=== PATIENT | female | born 1970 | race Caucasian/White ===

== ENCOUNTER → 2016-03-20 | Outpatient (CLI) | payer BC, OTHER ==
[~2016-03-20] MED LIST: AMOX875T PO; CALC500C3 PO; CHOL1000 PO; CYM20 PO; DLD25PCA IV; DRGTP100 TD; DRGTP25 TD; DXY100 PO; ENOX1INJ11 SQ; ENOX80IN SQ; FENT50DI19 TD; FNTTP75 EXT; KFL500 PO; LEVO137T3 PO; LEVO75TA PO; LVNIS80 SQ; MGNO400 PO; MRN/25 PO; MRN25 PO; MULT-506 PO; ONDA8TAB6 PO; OXYC-57 PO; OXYC1TAB3 PO; PHYT100T PO; POTA75TA PO; PROC1TAB5 PO; SENN-61 PO; SENN8.6T25 PO; SYN150 PO; WARF2TAB8 PO; oxycodone hcl PO; potassium PO; synthroid PO
[2016-03-20 14:34] LABS: ESTIMATED AVERAGE GLUCOSE 120 mg/dl; HA1C FLAG Normal (Normal)
[2016-03-20 14:50] LABS: ALKALINE PHOSPHATASE 92 U/L (45-117); ALT/SGPT 11 U/L (12-78); AST/SGOT 17 U/L (15-37); CHOLESTEROL 312 mg/dl (0-200); CHOLESTEROL/HDL RATIO 3.2; HDL CHOLESTEROL 99 mg/dl; LDL CHOLESTEROL CALCULATED 190 mg/dl; TRIGLYCERIDES 117 mg/dl (0-150); VERY LOW DENSITY LIPOPROT CALC 23 mg/dl
== END | disposition home or self-care (01) ==
LOC: C.LABSPEC 10:47
PROVIDERS: ATTEND Family Medicine
DX: I10 Essential (primary) hypertension (principal); E78.5 Hyperlipidemia, unspecified; E03.9 Hypothyroidism, unspecified; E09.39 Drug or chemical induced diabetes mellitus with other diabetic ophthalmic complication

== ENCOUNTER → 2016-04-04 | Outpatient (CLI) | payer BC ==
[~2016-04-04] MED LIST changes: -oxycodone hcl PO
--- NOTE | 2016-04-04 11:33 | DIAGNOSTIC IMAGING REPORT ---
RIGHT LOWER EXTREMITY VENOUS DOPPLER HISTORY: Right leg pain and swelling. COMPARISON STUDY: None. FINDINGS: There is occlusive thrombus seen within the right common femoral vein, saphenous vein, deep femoral vein, proximal superficial femoral vein, popliteal vein, and the visualized calf vessels. Of note the distal superficial femoral vein was not well visualized due to the patient's right lower extremity edema. IMPRESSION: Extensive DVT within the right lower extremity. Electronically signed by: Carlos Cruz M.D. 04/04/2016 11:32 AM Dictated Date/Time: 04/04/2016 11:30 AM
== END | disposition home or self-care (01) ==
LOC: C.ULTR 11:00
PROVIDERS: ATTEND Internal Medicine Hematology & Oncology
DX: C53.0 Malignant neoplasm of endocervix (principal); I82.4Z1 Acute embolism and thrombosis of unspecified deep veins of right distal lower extremity

== ENCOUNTER → 2016-04-04 | Outpatient (CLI) | payer BC | END | disposition home or self-care (01) | LOC: C.LABSPEC 16:40 | PROVIDERS: ATTEND Family Medicine | DX: D63.8 Anemia in other chronic diseases classified elsewhere (principal); D51.8 Other vitamin B12 deficiency anemias; C53.0 Malignant neoplasm of endocervix; E03.8 Other specified hypothyroidism ==

== ENCOUNTER → 2016-04-17 | Outpatient (CLI) | payer BC ==
[2016-04-17 11:51] LABS: BASO % 0.4 %; BASO ABS # 0.02 K/uL (0-0.2); COMPLETE YES; EOS % 1.5 %; HEMATOCRIT 27.7 % (37-47); IG% 3.4 %; LYMPH % 8.8 %; LYMPH ABS # 0.41 K/uL (1.2-3.4); MEAN CELL VOLUME 88.2 fL (80-100); MEAN CORPUSCULAR HEMOGLOBIN 29.3 pg (25-34); MEAN CORPUSCULAR HGB CONC 33.2 g/dl (32-36); MEAN PLATELET VOLUME 9.5 fL (7.4-10.4); MONO % 12.2 %; NEUT % 73.7 %; PLATELET COUNT 234 K/uL (130-400); RED BLOOD COUNT 3.14 M/uL (4.2-5.4); WHITE BLOOD COUNT 4.68 K/uL (4.8-10.8)
[2016-04-17 12:25] LABS: ALT/SGPT 9 U/L (12-78); BLOOD UREA NITROGEN 7 mg/dl (7-18); BUN/CREATININE RATIO 8.8 (10-20); CALCIUM 7.1 mg/dl (8.5-10.1); CARBON DIOXIDE 33 mmol/L (21-32); CHLORIDE 95 mmol/L (98-107); CREATININE 0.81 mg/dl (0.60-1.20); GLUCOSE 76 mg/dl (70-99); POTASSIUM 3.1 mmol/L (3.5-5.1); SODIUM 138 mmol/L (136-145)
[2016-04-17 12:36] LABS: CHOLESTEROL 203 mg/dl (0-200); CHOLESTEROL/HDL RATIO 4.1; HDL CHOLESTEROL 49 mg/dl; LDL CHOLESTEROL CALCULATED 122 mg/dl; TRIGLYCERIDES 159 mg/dl (0-150); VERY LOW DENSITY LIPOPROT CALC 32 mg/dl
== END | disposition home or self-care (01) ==
LOC: C.LAB 10:11
PROVIDERS: ATTEND Family Medicine
DX: D63.8 Anemia in other chronic diseases classified elsewhere (principal); M48.50XA Collapsed vertebra, not elsewhere classified, site unspecified, initial encounter for fracture; E03.8 Other specified hypothyroidism; C53.0 Malignant neoplasm of endocervix

== ENCOUNTER → 2016-04-21 | Outpatient (CLI) | payer BC ==
[~2016-04-21] MED LIST changes: +OPTIRAY 320 IV PRN
--- NOTE | 2016-04-21 12:37 | DIAGNOSTIC IMAGING REPORT ---
ABDOMEN AND PELVIS CT WITH IV AND ORAL CONTRAST CT DOSE: 293.65 mGy.cm HISTORY: Cervical tumor. TECHNIQUE: Multiaxial CT images of the abdomen and pelvis were performed following the use of intravenous and oral contrast. COMPARISON STUDY: PET CT 02/16/2016. FINDINGS: Stable 4 mm nodule within the right middle lobe. No new pulmonary nodules identified. The spleen, adrenal glands, and pancreas are unremarkable. Prior cholecystectomy. Mild fullness within the right renal collecting system has improved. Stable mild left hydronephrosis with the obstruction at the level of the mid left ureter due to the pelvic sidewall mass. Multiple hepatic lesions consistent with metastatic disease. Dominant lesion within the right hepatic lobe measures 1.9 cm. Direct comparison to the prior PET/CT is difficult due to the noncontrast study. The IVC is thrombosed inferior to the level of the renal veins. The right iliac and right femoral veins are also thrombosed. The left common iliac is also thrombosed. Mild bladder wall thickening. Moderate to severe body wall edema. Multiple soft tissue nodule within the left abdominal subcutaneous fat which measure up to 1.5 cm. This could be due to prior medication injection. The periaortic lymphadenopathy has improved. Dominant lymph node measures 3.2 x 2.5 cm, previously measuring 4.8 x 4.6 cm. This partially encases the abdominal aorta. Large bilateral iliac/pelvic sidewall the necrotic masses have also decreased in size. The dominant left mass measures 5.4 x 5.2 cm. This previously measured 7.6 x 7.4 cm. These masses encase the common iliac arteries. Cystic/necrotic pelvic masses have also decreased in size with the dominant lesion measuring 6.5 x 3.7 cm, previously measuring 8.8 x 4.9 cm. Redemonstration of the destructive L3 vertebral body mass which likely demonstrates epidural extension which measures up to 4 mm in thickness. This results in moderate central canal narrowing at this level. This mass results in a severe compression deformity of L3 which has progressed in the interval. IMPRESSION: 1. Decrease in size in the pelvic masses and periaortic lymphadenopathy. 2. Mild left hydronephrosis persists. Improvement in right renal collecting system fullness. 3. Multiple metastatic lesions seen throughout the liver. Direct comparison to the noncontrast PET/CT is difficult. However, these may have increased in number. 4. Severe compression deformity at L3 which has progressed. There appears to be epidural extension of tumor at this level and retropulsion of the bony fragments measuring up to 4 mm area this results in moderate central canal narrowing at this level. 4. Diffuse body wall edema. 5. The infrarenal IVC, bilateral common iliac veins, right external iliac vein and visualized right femoral veins are thrombosed. 6. Stable 4 mm nodule within the right middle lobe. Electronically signed by: Carlos Cruz M.D. 04/21/2016 12:36 PM Dictated Date/Time: 04/21/2016 12:16 PM
== END | disposition home or self-care (01) ==
LOC: C.CTS 10:26
PROVIDERS: ATTEND Internal Medicine Hematology & Oncology
DX: C53.0 Malignant neoplasm of endocervix (principal)

== ENCOUNTER 2016-05-11 19:31 | Inpatient (IN) | payer BC ==
[~2016-05-11] VITALS: Ht 154.9 cm; Wt 59.4 kg
[~2016-05-11 19:31] MED LIST changes: -AMOX875T PO; -CALC500C3 PO; -CHOL1000 PO; -CYM20 PO; -DLD25PCA IV; -DRGTP100 TD; -DRGTP25 TD; -DXY100 PO; -ENOX80IN SQ; -FNTTP75 EXT; -KFL500 PO; -LEVO137T3 PO; -LVNIS80 SQ; -MGNO400 PO; -MRN/25 PO; -MRN25 PO; -MULT-506 PO; -OXYC-57 PO; -PHYT100T PO; -POTA75TA PO; -SENN8.6T25 PO; -SYN150 PO; -potassium PO; -synthroid PO
[2016-05-11] MEDS ORDERED: SODIUM CHLORIDE 0.9% 1000ML 1,000 ML IV STA (20:17)
--- NOTE | 2016-05-11 20:34 | EMERGENCY ROOM VISIT NOTE ---
History Report prepared by Leona: Shin Valentine Under the Supervision of: Dr. Cam Madison M.D. First contact with patient: 20:17 Chief Complaint: ABNORMAL LABS Stated Complaint: LOW CBC History of Present Illness The patient is a 45 year old female with a history of metastatic cervical cancer who presents to the Emergency Room with complaints of abnormal labs that were found prior to arrival today. Her white blood count was 0.33 and her hemoglobin was 6.2. Her last chemotherapy was yesterday, and her last radiation was in March. She is currently on Warfarin. Other than a bit of pain from her port, she denies any fevers, chills, shortness of breath, headaches, or abdominal pain. She did take Oxycontin 3 hours ago. Source of History: patient Onset: Prior to arrival today Position: other (global - abnormal labs) Symptom Intensity: WBC of 0.33, hemoglobin of 6.2 Associated Symptoms: No SOB, No abdominal pain, No chills, No fevers, No headache Note: Associated symptoms: A bit of pain from her port. Review of Systems See HPI for pertinent positives & negatives. A total of 10 systems reviewed and were otherwise negative. Past Medical & Surgical Medical Problems: (1) Deep vein blood clot of right lower extremity (2) Diabetes Family History Cancer Diabetes mellitus Heart disease Hypertension Seizures Social History Smoking Status: Never Smoker Marital Status: single Occupation Status: disabled Current/Historical Medications Scheduled Enoxaparin Sodium (Lovenox), 70 MG SQ DAILY Levothyroxine Sodium (Levothyroxine Sodium), 1 TAB PO DAILY Senna (Senokot), 1 TAB PO DAILY Warfarin Sod (Jantoven), 2 MG PO QPM Scheduled PRN Fentanyl (Duragesic), 100 MCG TD CQ72HR PRN for Pain Ondansetron Hcl (Zofran), 8 MG PO Q8 PRN for Nausea Oxycodone Ir (Roxicodone Ir), 5 MG PO Q4H PRN for Severe Pain Prochlorperazine Maleate (Compazine), 1 TAB PO Q6 PRN for Nausea or Vomiting Allergies Coded Allergies: Sulfa Antibiotics (Verified Allergy, Mild, Skin Rash , 05/11/16) Physical Exam Vital Signs Date Time Temp Pulse Resp B/P Pulse Ox O2 Delivery O2 Flow Rate FiO2 05/11/16 23:16 36.6 107 18 134/85 100 05/11/16 22:52 108 17 130/88 97 Room Air 05/11/16 22:00 98 05/11/16 21:57 99 Room Air 05/11/16 21:30 98 12 137/87 99 Room Air 05/11/16 19:42 36.7 111 16 122/76 97 Room Air Physical Exam GENERAL: Patient is a pale in appearance and well-nourished. Crying on exam. HEAD: Normocephalic atraumatic EYES: Ocular movements intact pupils equal and react to light OROPHARYNX mucous membranes are moist no exudates present no erythema or edema present NECK: Supple no nuchal rigidity CHEST: Good equal expansion LUNGS: Clear and equal to auscultation CARDIAC: Normal S1 and S2 ABDOMEN: Soft nontender no guarding BACK: No CVA tenderness RECTAL: Brown stool, heme negative. EXTREMITIES: No pain upon palpation normal muscle strength in all groups no clubbing cyanosis or edema NEURO: Patient is following commands is answering questions appropriately. Alert and oriented x3 Cranial Nerves 2-12 grossly intact Medical Decision & Procedures Laboratory Results 05/11/16 21:40 Red Blood Count 1.52, Mean Corpuscular Volume 86.8, Mean Corpuscular Hemoglobin 28.9, Mean Corpuscular Hemoglobin Concent 33.3, Mean Platelet Volume 10.4 05/11/16 21:40 Test 05/11/16 21:40 05/11/16 21:46 White Blood Count 0.37 K/uL (4.8-10.8) Red Blood Count 1.52 M/uL (4.2-5.4) Hemoglobin 4.4 g/dL (12.0-16.0) Hematocrit 13.2 % (37-47) Mean Corpuscular Volume 86.8 fL (80-100) Mean Corpuscular Hemoglobin 28.9 pg (25-34) Mean Corpuscular Hemoglobin Concent 33.3 g/dl (32-36) Platelet Count 29 K/uL (130-400) Mean Platelet Volume 10.4 fL (7.4-10.4) RDW Standard Deviation 48.3 fL (36.4-46.3) RDW Coefficient of Variation 15.3 % (11.5-14.5) Neutrophils % (Manual) 18.9 % Lymphocytes % (Manual) 56.5 % Monocytes % (Manual) 18.9 % Eosinophils % (Manual) 3.8 % Basophils % (Manual) 1.9 % Neutrophils # (Manual) 0.07 K/uL (1.4-6.5) Total Absolute Neutrophils 0.07 K/uL (1.4-6.5) Lymphocytes # (Manual) 0.21 K/uL (1.2-3.4) Total Absolute Lymphocytes 0.21 K/uL (1.2-3.4) Monocytes # (Manual) 0.07 K/uL (0.11-0.59) Eosinophils # (Manual) 0.01 K/uL (0-0.5) Basophils # (Manual) 0.01 K/uL (0-0.2) Stomatocytes 1+ Prothrombin Time 12.7 SECONDS (9.0-12.0) Prothromb Time International Ratio 1.2 (0.9-1.1) Activated Partial Thromboplast Time 166.9 SECONDS (21.0-31.0) Partial Thromboplastin Ratio 6.4 Est Creatinine Clear Calc Drug Dose 88.4 ml/min Estimated GFR () 123.3 Estimated GFR (Non- 106.4 BUN/Creatinine Ratio 16.2 (10-20) Calcium Level 7.9 mg/dl (8.5-10.1) Total Bilirubin 0.6 mg/dl (0.2-1) Direct Bilirubin 0.2 mg/dl (0-0.2) Aspartate Amino Transf (AST/SGOT) 82 U/L (15-37) Alanine Aminotransferase (ALT/SGPT) 28 U/L (12-78) Alkaline Phosphatase 353 U/L (45-117) Total Protein 5.8 gm/dl (6.4-8.2) Albumin 2.2 gm/dl (3.4-5.0) Lipase 44 U/L (73-393) Bedside Hemoglobin 5.4 g/dl (12.0-16.0) Bedside Hematocrit 16 % (37-47) Bedside Sodium 136 mEq/L (135-144) Bedside Potassium 4.3 mEq/L (3.3-5.0) Bedside Chloride 92 mEq/L (101-112) Bedside Total CO2 27 mEq/l (24-31) Anion Gap 22.0 mmol/L (16-25) Bedside Blood Urea Nitrogen 10 mg/dl (7-18) Bedside Creatinine 0.7 mg/dl (0.6-1.3) Bedside Glucose (other) 78 mg/dl (70-99) Bedside Ionized Calcium (Kenan) 0.45 mmol/l (1.12-1.32) Labs reviewed by ED physician. Medications Administered Medications (Trade) Dose Ordered Sig/Janice Route Start Time Stop Time Status Last Admin Dose Admin Sodium Chloride (Nss 1000ml) 1,000 ml @ 999 mls/hr Q1H1M STAT IV 05/11/16 20:17 05/11/16 21:17 DC 05/11/16 21:52 999 MLS/HR Lidocaine/ Prilocaine (Emla 2.5% Crm) 1 ea NOW STAT EXT 05/11/16 21:03 05/11/16 21:04 DC 05/11/16 21:03 1 EA Ondansetron HCl (Zofran Inj) 4 mg NOW STAT IV 05/11/16 22:34 05/11/16 22:35 DC 05/11/16 22:40 4 MG ECG Indication: other (abnormal labs - low WBC) Rate (beats per minute): 101 Rhythm: sinus tachycardia Findings: no acute ischemic change, no ectopy ED Course 2017: Ordered NSS 1000 ml @ 999 mls/hr IV. 2100: Past medical records reviewed. The patient was evaluated in room B10. A complete history and physical examination was performed. 2102: Ordered Emla 2.5% Crm 1 ea EXT. 4: Ordered Zofran Inj 4 mg IV, Dilaudid Inj 0.5 mg IV. 0: I reevaluated the patient and she is sitting up in bed. The patient verbally expressed understanding and agreement of the treatment plan. The patient will be evaluated for further treatment. 3: I discussed the patient with Dr. Everett - [facility] hospitalist - he will evaluate the patient for further treatment. 2252: I performed a rectal exam on the patient. She has brown stool, heme negative. Medical Decision Differential diagnosis: Etiologies such as metabolic, infection, hypo/hyperglycemia, electrolyte abnormalities, cardiac sources, intracerebral event, toxicologic, neurologic, as well as others were entertained. This is a 45-year-old female who presents emergency department complaining of low hemoglobin. The patient was sent in by her primary care physician's office. She was noted to be neutropenic along with a low white blood count. The patient was placed on neutropenic precautions. She is heme negative from below. Her platelets are also only 21. I discussed the case with both the hospitalist as well as the blood bank. The patient will require a negative irradiated . Leuk reduced. In addition the patient was given 1 unit of platelets. I did discuss the case with the hospitalist service. The patient willingly signed the red blood cell consent and it was placed on the chart. Patient and family were in agreement with the treatment plan. Patient was given morphine in the emergency department as well as Zofran. Repeat examination revealed improvement patient's symptoms. Consults Time Called: [id number] Consulting Physician: Dr. Karlos CHU hospitalist Returned Call: [phone] I discussed the patient with Dr. Karlos [facility] - he will evaluate the patient for further treatment. Impression Primary Impression: Anemia Critical Care I have personally spent greater than 90 minutes of critical care time in the direct management of this patient. This includes bedside care, interpretation of diagnostic studies, and testing, discussion with consultants, patient, and family members, and other required patient management activities. This 90 minutes is in excess of all separately billable procedures. Scribe Attestation The scribe's documentation has been prepared under my direction and personally reviewed by me in its entirety. I confirm that the note above accurately reflects all work, treatment, procedures, and medical decision making performed by me. Departure Information Dispostion Being Evaluated By Hospitalist Referrals Dejuan Bailey M.D. (PCP) Patient Instructions My [facility] Problem Qualifiers Primary Impression: Anemia Anemia type: bone marrow failure Bone marrow failure anemia type: pancytopenia, antineoplastic chemotherapy-induced Qualified Codes: D61.810 - Antineoplastic chemotherapy induced pancytopenia
[2016-05-11] MEDS ORDERED: NURSING VERBAL MED ORDER ONE (21:00)
[2016-05-11] MEDS ORDERED: LIDOCAINE/PRILOCAINE 2.5% EA CRM EXT STA (21:03)
[2016-05-11] MEDS ORDERED: LEVO137T3 PO (21:11)
[2016-05-11 22:03] LABS: ISTAT CREATININE 0.7 mg/dl (0.6-1.3); ISTAT HEMOGLOBIN 5.4 g/dl (12.0-16.0); ISTAT IONIZED CALCIUM 0.45 mmol/l (1.12-1.32)
[2016-05-11 22:13] LABS: BUN/CREATININE RATIO 16.2 (10-20); CALCIUM 7.9 mg/dl (8.5-10.1); CREATININE 0.68 mg/dl (0.60-1.20); POTASSIUM 3.6 mmol/L (3.5-5.1)
[2016-05-11 22:26] LABS: HEMATOCRIT 13.2 % (37-47); MEAN CELL VOLUME 86.8 fL (80-100); MEAN CORPUSCULAR HEMOGLOBIN 28.9 pg (25-34); MEAN CORPUSCULAR HGB CONC 33.3 g/dl (32-36); MEAN PLATELET VOLUME 10.4 fL (7.4-10.4); PLATELET COUNT 29 K/uL (130-400); RED BLOOD COUNT 1.52 M/uL (4.2-5.4); WHITE BLOOD COUNT 0.37 K/uL (4.8-10.8)
[2016-05-11 22:33] LABS: INR 1.2 (0.9-1.1); PARTIAL THROMBOPLASTIN RATIO 6.4; PROTHROMBIN TIME (PATIENT) 12.7 SECONDS (9.0-12.0)
[2016-05-11] MEDS ORDERED: HYDROmorphone INJ 0.5 MG/0.5 ML SYR IV STA (22:34)
[2016-05-11] MEDS ORDERED: ONDANSETRON INJ 2 MG/ML 2 ML VIAL IV STA ×2 (22:34→23:20)
[2016-05-11 22:56] LABS: BASO ABS # 0.01 K/uL (0-0.2); BASOPHIL % 1.9 %; COMPLETE YES; EOSINOPHIL % 3.8 %; LYMPH ABS # 0.21 K/uL (1.2-3.4); LYMPHOCYTE % 56.5 %; NEUTROPHILS % 18.9 %; STOMATOCYTE 1+
[2016-05-11 23:16] VITALS: BP 134/85; PULSE 107; TEMP 36.6; O2SAT 100
[2016-05-11] MEDS ORDERED: MoRPHine SULFATE 10 MG/ML CARP/VIAL IV STA (23:20)
[2016-05-11 23:30] VITALS: BP 138/92; PULSE 109; O2SAT 100
--- NOTE | 2016-05-11 23:42 | History and Physical ---
History & Physical Date & Time of Service: May 11, 2016 at 23:26 Chief Complaint: Low Cbc Primary Care Physician: Dejuan Bailey M.D. History of Present Illness Miss Thomas is an unfortunate 45 year old female with metastatic cervical cancer who presented to the ER after routine labs showed pancytopenia. She denies any chest pain, dizziness or shortness of breath. She is fatigued but no more than usual over the last few months. In the last 2 months she does note she feels cold all the time, but denies any fevers or chills more recently. In terms of infections she has had a runny nose for the last 2 weeks and blew a blood clot earlier in the day, she denies ear fullness, eye Sx or sinus pain. She had a headache for 4 days after her last chemotherapy but is She was diagnosed with cervical cancer on 29 January. She tells me she has metastatic disease to her pelvis, back, liver and lung. This is managed by Dr Kelly. She received 1 full cycle of chemotherapy and had just switched the regimen and started the second round 1 week previously. She denies ever having neutropenia and she is not on prophylactic Neulasta or Neupogen as an outpatient. She has constant back pain, currently severity 6/10 but this is no worse than normal. Both her legs have been painful, tingling and more numb over the past 2 days. She denies any urine or bowel incontinence. Her left foot is especially painful today. She was also diagnosed with a DVT 1 month previously and has been taking lovenox. She was started on warfarin 1 week ago but is unsure of the exact reason for this, she continues on Lovenox as her PTINR remains not therapeutic. Past Medical/Surgical History Medical Problems: Metastatic cervical cancer Right leg DVT Diet controlled diabetes Family History Cancer Diabetes mellitus Heart disease Hypertension Seizures Social History Smoking Status: Never Smoker Marital Status: single Occupational Status: disabled Allergies Coded Allergies: Sulfa Antibiotics (Verified Allergy, Mild, Skin Rash , 05/11/16) Home Medications Scheduled Amoxicillin & Pot Clavulanate (Augmentin 875-125 mg), 1 TAB PO BID Enoxaparin Sodium (Lovenox), 70 MG SQ DAILY Levothyroxine Sodium (Levothyroxine Sodium), 1 TAB PO DAILY Senna (Senokot), 1 TAB PO DAILY Warfarin Sod (Jantoven), 2 MG PO QPM Scheduled PRN Fentanyl (Duragesic), 100 MCG TD CQ72HR PRN for Pain Ondansetron Hcl (Zofran), 8 MG PO Q8 PRN for Nausea Oxycodone Ir (Roxicodone Ir), 5 MG PO Q4H PRN for Severe Pain Prochlorperazine Maleate (Compazine), 1 TAB PO Q6 PRN for Nausea or Vomiting Review of Systems Constitutional: No chills, No fever Eyes: No worsening of vision ENT: + nasal symptoms (runny nose 2 weeks), + problem reported, + sore throat, + unusual epistaxis (blot clot on blowing nose), No hearing loss Respiratory: No cough, No sputum, No wheezing Musculoskeletal: + joint pain, + muscle pain (right leg) Genitourinary - Female: No dysuria, No urinary frequency, No urinary incontinence, No urinary retention, No urinary urgency Neurologic: + numbness/tingling, + weakness Endocrine: + fatigue (no worse than usual) Hematologic / Lymphatic: + abnormal bleeding/bruising (nose clot only) Integumentary: No itch, No rash Physical Exam Vital Signs Date Time Temp Pulse Resp B/P Pulse Ox O2 Delivery O2 Flow Rate FiO2 05/11/16 23:16 36.6 107 18 134/85 100 05/11/16 22:52 108 17 130/88 97 Room Air 05/11/16 22:00 98 05/11/16 21:57 99 Room Air 05/11/16 21:30 98 12 137/87 99 Room Air 05/11/16 19:42 36.7 111 16 122/76 97 Room Air General Appearance: WD/WN, + moderate distress (back and leg pain) Head: normocephalic, atraumatic Eyes: normal inspection (conjunctival pallor), PERRL, EOMI Neck: supple, no JVD, trachea midline Respiratory/Chest: chest non-tender, lungs clear, normal breath sounds, no respiratory distress, no accessory muscle use Cardiovascular: no murmur, normal peripheral pulses, + tachycardia Abdomen/GI: non tender, soft, + tenderness (mild epigastric tenderness on deep palpation without guarding or rebound tenderness otherwise negative.) Back: no CVA tenderness, + pertinent finding (lower back pain on small movements and palpation) Extremities/Musculoskelatal: + pedal edema (marked peripheral edema 3+ to groin R>L, right sided extremely tender) Neurologic/Psych: alert, + motor weakness (no upper limb difference and unable to fully assess lower limbs due to pain, no apparent difference with ankle movements however), + sensory deficit (numbness in lower limbs) Skin: + pertinent finding (right foot slight erythema with blanching without definitive border, possible cellulitis, petechia present on lower legs R>L) Diagnostics Laboratory Results Results Past 24 Hours Test 05/11/16 21:40 05/11/16 21:46 Range/Units White Blood Count 0.37 4.8-10.8 K/uL Red Blood Count 1.52 4.2-5.4 M/uL Hemoglobin 4.4 12.0-16.0 g/dL Hematocrit 13.2 37-47 % Mean Corpuscular Volume 86.8 80-100 fL Mean Corpuscular Hemoglobin 28.9 25-34 pg Mean Corpuscular Hemoglobin Concent 33.3 32-36 g/dl Platelet Count 29 130-400 K/uL Mean Platelet Volume 10.4 7.4-10.4 fL RDW Standard Deviation 48.3 36.4-46.3 fL RDW Coefficient of Variation 15.3 11.5-14.5 % Neutrophils % (Manual) 18.9 % Lymphocytes % (Manual) 56.5 % Monocytes % (Manual) 18.9 % Eosinophils % (Manual) 3.8 % Basophils % (Manual) 1.9 % Neutrophils # (Manual) 0.07 1.4-6.5 K/uL Total Absolute Neutrophils 0.07 1.4-6.5 K/uL Lymphocytes # (Manual) 0.21 1.2-3.4 K/uL Total Absolute Lymphocytes 0.21 1.2-3.4 K/uL Monocytes # (Manual) 0.07 0.11-0.59 K/uL Eosinophils # (Manual) 0.01 0-0.5 K/uL Basophils # (Manual) 0.01 0-0.2 K/uL Stomatocytes 1+ Prothrombin Time 12.7 9.0-12.0 SECONDS Prothromb Time International Ratio 1.2 0.9-1.1 Activated Partial Thromboplast Time 166.9 21.0-31.0 SECONDS Partial Thromboplastin Ratio 6.4 Sodium Level 136 136-145 mmol/L Potassium Level 3.6 3.5-5.1 mmol/L Chloride Level 97 98-107 mmol/L Carbon Dioxide Level 30 21-32 mmol/L Anion Gap 9.0 22.0 16-25 mmol/L Blood Urea Nitrogen 11 7-18 mg/dl Creatinine 0.68 0.60-1.20 mg/dl Est Creatinine Clear Calc Drug Dose 88.4 ml/min Estimated GFR () 123.3 Estimated GFR (Non- 106.4 BUN/Creatinine Ratio 16.2 10-20 Random Glucose 79 70-99 mg/dl Calcium Level 7.9 8.5-10.1 mg/dl Total Bilirubin 0.6 0.2-1 mg/dl Direct Bilirubin 0.2 0-0.2 mg/dl Aspartate Amino Transf (AST/SGOT) 82 15-37 U/L Alanine Aminotransferase (ALT/SGPT) 28 12-78 U/L Alkaline Phosphatase 353 45-117 U/L Total Protein 5.8 6.4-8.2 gm/dl Albumin 2.2 3.4-5.0 gm/dl Lipase 44 73-393 U/L Bedside Hemoglobin 5.4 12.0-16.0 g/dl Bedside Hematocrit 16 37-47 % Bedside Sodium 136 135-144 mEq/L Bedside Potassium 4.3 3.3-5.0 mEq/L Bedside Chloride 92 101-112 mEq/L Bedside Total CO2 27 24-31 mEq/l Bedside Blood Urea Nitrogen 10 7-18 mg/dl Bedside Creatinine 0.7 0.6-1.3 mg/dl Bedside Glucose (other) 78 70-99 mg/dl Bedside Ionized Calcium (Kenan) 0.45 1.12-1.32 mmol/l EKG Sinus tachycardia Otherwise normal ECG No previous ECGs available Impression Assessment and Plan 45 yo old female with metastatic cervical cancer presents with pancytopenia and questionable cellulitis Chemotherapy induced pancytopenia - Hgb 4.4 - 3 units of irradiated packed RBCs, CBC after this to determine whether she needs the last bag that was ordered - Plt 29 - 1 pool Plt given in ER, will hold off further Plt given acute DVT unless any bleeding develops - Neutrophils 0.07 - Consult Dr Kelly regarding Neupogen vs. Neulasta. - UA + CXR to assess for infection Questionable cellulitis - Given extent of pancytopenic she is unlikely to have any normal markers for infection such as fever. Therefore will cover this with antibiotics - Vancomycin and Zosyn - Follow up blood cultures - 1 from port, 2 peripheral. Metastatic cervical cancer - Consult Dr Kelly - Pain control, Dilaudid, oxycodone - Nausea control - Zofran DVT - hold warfarin and Lovenox due to Plt 29 and supertherapeutic PTT. - Dr Briggs consulted for further dosing of this VTE prophylaxis - hold lovenox and warfarin as above - not for TEDs or SCDs given current DVT Code - Discussed with patient. 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 She wishes her mother to act as decision maker in an event she is unable to make her own decision Disposition - Admit to telemetry with neutropenic precautions Level of Care Telemetry Advanced Directives Existing Advance Directive: No Existing Living Will: No Existing Power of Siding Mechanic: No (however she wishes her mother to act as decision maker in the event she cannot make her own decisions) VTE Prophylaxis VTE Risk Assessment Done? Y/N: Yes Risk Level: High Given or contraindicated: Contraindicated (low Plt, supertherapeutic PTT) Additional Copies To Pierce Kelly D.O.; Dejuan Bailey M.D. Resident Tracking Resident Involvement: Resident Care Provided Care Provided: [facility] Medicine Assessment and Plan Attending Addendum: I have physically seen and examined this patient, have directed their medical care, have supervised the medical residents activities, and agree with the H&P as noted above, with the following changes: NONE The patient is awake, alert and oriented 3, looks fatigued and chronically ill , lying in bed and in no acute distress. HEENT--PERRL, EOMI, mucous membranes and oropharynx dry. Neck--supple, no JVD or bruits, thyroid normal, trachea midline, no adenopathy. Heart--normal S1 and S2, no extra beats, no murmurs, rubs or gallops. Lungs--clear bilaterally with good air movement, no respiratory distress, no accessory muscle use. Abdomen--normal bowel sounds and soft, nontender and nondistended, no hernias or masses, no organomegaly. Extremities--no cyanosis, clubbing or edema. There are good distal pulses b/l. Dermatologic--normal skin turgor, normal color, warm and dry, no abnormal lymph nodes, no rash. Neurologic--cranial nerves II through XII grossly intact, motor and sensory examination normal. Rheumatologic--normal range of motion, nontender, muscles and joints. Psychiatric--normal affect. Assessment and Plan: Metastatic cervical cancer on chemotherapy per Dr. Kelly, who will be consulted. Anemia--hemoglobin 4.4 upon admission, will plan to transfuse total of 3 units to start with a follow-up H&H. With the presentation of significant pancytopenia, anemia is most likely related to a side effect chemotherapy, as opposed to blood loss. Thrombocytopenia--platelets were 29, and she received 1 unit of platelets while in the emergency department. Neutropenia--we'll likely need Neupogen, Dr. Kelly will be approximately 5 hours , and this can be addressed by. Lower extremity DVT--has been on therapeutic Lovenox for 1 month, and most recently as a bridge to Coumadin. We'll hold both at this time, and repeat lower extremity Dopplers.
[2016-05-11 23:45] VITALS: BP 128/84; PULSE 99; O2SAT 100
[2016-05-12] VITALS (21 sets, daily range): BP systolic 112–165; BP diastolic 67–94; PULSE 55–118; TEMP 36.6–37; O2SAT 95–100; Ht 154.9 cm; Wt 59.4 kg
[2016-05-12] MEDS ORDERED: VANCOMYCIN INJ 1,500 MG in SODIUM CHLORIDE 0.9% 500ML 500 ML IV STA (00:14)
[2016-05-12] MEDS ORDERED: PIPERACILL/TAZOBAC CONSULT ACTIVE PRN (00:15)
[2016-05-12] MEDS ORDERED: ONDANSETRON INJ 2 MG/ML 2 ML VIAL IV PRN (00:15)
[2016-05-12] MEDS ORDERED: PIPERACILL/TAZOBAC IV 3.375 GM in DEXTROSE 5% 100ML IV STA (00:16)
[2016-05-12] MEDS ORDERED: VANCOMYCIN CONSULT ACTIVE PRN (00:30)
[2016-05-12] MEDS ORDERED: PROCHLORPERAZINE MALEATE 10 MG TAB PO PRN (01:00)
[2016-05-12] MEDS ORDERED: ONDANSETRON 8 MG TAB PO PRN (01:00)
[2016-05-12] MEDS ORDERED: OXYCODONE HCL IR 5 MG TAB (IMMEDIATE RELEASE) PO PRN (01:00)
[2016-05-12] MEDS ORDERED: HYDROmorphone INJ 0.5 MG/0.5 ML SYR IV PRN (01:15)
[2016-05-12] MEDS ORDERED: SODIUM CHLORIDE 0.9% 1000ML 1,000 ML IV SCH (02:00)
[2016-05-12] MEDS: CHECK FENTANYL PATCH PLACEMENT SCH ×3 (02:30→15:45)
[2016-05-12 05:55] LABS: MANUAL MICROSCOPIC REQUIRED? NO; REVIEW REQ? YES; URINE APPEARANCE CLOUDY (CLEAR); URINE BILIRUBIN NEG (NEG); URINE COLOR YELLOW; URINE EPITHELIAL CELL AUTO >30 /lpf (0-5); URINE NITRITE NEG (NEG); URINE PH 6.5 (4.5-7.5); URINE SPECIFIC GRAVITY 1.012 (1.000-1.030); UROBILINOGEN NEG (NEG)
[2016-05-12] MEDS ORDERED: LEVOTHYROXINE 137 MCG TAB PO SCH (06:00)
[2016-05-12] MEDS: PIPERACILL/TAZOBAC IV 3.375 GM in DEXTROSE 5% 100ML 100 ML IV SCH ×2 (06:08→13:38)
[2016-05-12] MEDS ORDERED: FILGRASTIM 480 MCG/1.6 ML VIAL SC ONE (06:15)
--- NOTE | 2016-05-12 07:30 | DIAGNOSTIC IMAGING REPORT ---
SINGLE VIEW CHEST CLINICAL HISTORY: Pancytopenia. FINDINGS: An AP, portable, upright chest radiograph is compared to study dated 02/18/2016. The examination is degraded by portable technique and patient rotation. A left subclavian central venous infusion port is unchanged in position. The cardiomediastinal silhouette is unremarkable. The lungs and pleural spaces are clear. No pneumothorax is seen. The skeletal structures are osteopenic. The bony thorax is grossly intact. Cholecystectomy clips are seen in the right upper quadrant. IMPRESSION: No acute cardiopulmonary abnormality. Electronically signed by: Alberto Ramos M.D. 05/12/2016 7:28 AM Dictated Date/Time: 05/12/2016 7:28 AM
[2016-05-12] MEDS ORDERED: ENOXAPARIN 80 MG/0.8 ML SYR SQ SCH (09:00)
[2016-05-12] MEDS ORDERED: SENNA 8.6 MG TAB PO SCH (09:00)
--- NOTE | 2016-05-12 09:01 | ONCOLOGY CONSULTATION ---
DATE OF CONSULTATION: 05/12/2016 REASON FOR CONSULTATION: Pancytopenia secondary to chemotherapeutic effect. HISTORY OF PRESENT ILLNESS: Isabela is a pleasant but unfortunate 45-year-old female patient who suffers from metastatic cervical cancer, presented to the ER after routine labs confirmed pancytopenia. She last received high dose paclitaxel and carboplatin on 05/03/2016. Fortunately, she has been relatively asymptomatic other than fatigue which is certainly understandable considering her hemoglobin. She denies any fevers or chills and has been admitted primarily for transfusional support. Isabela is a 45-year-old patient well known to [facility] seen originally back in August of 2015 with what was believed to be locally advanced cervical cancer. She underwent chemoradiation utilizing cisplatin, which did result in partial response. Unfortunately, along the way developed right lower extremity deep vein thrombosis, currently anticoagulated with Coumadin. Because of significant residual disease it was decided to proceed with salvage carboplatin and paclitaxel, which again was started beginning of the month. Obviously with this profound myelosuppression will need to consider significant dose modification perhaps weekly administration at lower doses. PAST MEDICAL HISTORY: Significant for metastatic cervical cancer, right lower extremity DVT, diet controlled diabetes mellitus. PAST SURGICAL HISTORY: Bilateral cataracts, cholecystectomy. 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 She is single with no children. FAMILY HISTORY: Maternal grand aunt suffered from lung cancer. Additionally, another maternal grand aunt with bladder cancer. Grandmother suffered with basal cell carcinoma of the skin. MEDICATIONS: Lovenox 70 mg subQ every day, Levothyroxine 1 tablet p.o. every day, senna 1 tablet p.o. every day, warfarin 2 mg p.o. every day, p.r.n. include fentanyl, Zofran, oxycodone and Compazine. ALLERGIES: SULFA ANTIBIOTICS. REVIEW OF SYSTEMS: Surprisingly no fevers, chills or sweats. She is maintaining her weight and appetite. SKIN: She does have a little bit of redness in the dorsum of her feet bilaterally, but otherwise no petechia or ecchymosis. HEAD, EYES, EARS, NOSE, AND THROAT: Negative for headaches, lightheadedness or dizziness. No visual or hearing deficits. No sinus symptoms, sore throat or dysphagia. LYMPH: Negative for peripheral lymphadenopathy or history of lymphoproliferative disorder. CARDIAC: Negative for coronary artery disease. No current angina or palpitations. PULMONARY: Negative for COPD disease by history. No shortness of breath, dyspnea or orthopnea. GASTROINTESTINAL: Negative for abdominal pain, nausea, vomiting, diarrhea or constipation, hematochezia or melenotic stools. GENITOURINARY: No hematuria or dysuria reported. ENDOCRINE: Positive for hypothyroidism and diet controlled diabetes mellitus. NEUROLOGIC: Negative for seizure, stroke, migraine headache. HEMATOLOGIC: Positive for pancytopenia. PHYSICAL EXAMINATION: GENERAL: Very pleasant, awake and appropriate 45-year-old female patient in no acute distress. VITAL SIGNS: Temperature 36.8, pulse 105, respiratory rate 18, blood pressure 127/81. SKIN: Again, she has some erythema mainly involving the dorsum of her feet, not well demarcated. HEAD, EYES, EARS, NOSE, AND THROAT: HEAD: Atraumatic, normocephalic. EYES: PERRLA, EOMI. Sclerae nonicteric. No conjunctival injection. Nares are patent without rhinorrhea or discharge. Throat is clear. Tongue is midline. No evidence of thrush. NECK: Supple without JVD or thyromegaly. LYMPH: No cervical, supraclavicular or axillary palpable nodes. HEART: Regular rate and rhythm. No clicks, rubs, murmurs or gallops. LUNGS: Clear to auscultation bilaterally. ABDOMEN: Soft, nontender, nondistended, without palpable hepatosplenomegaly. EXTREMITIES: She has chronic lower extremity edema. Her right leg demonstrates greater circumference secondary to DVT. NEUROLOGICALLY: Awake, alert and oriented x3. Cranial nerves are intact. LABORATORY DATA: WBC count 370, hemoglobin 4.4, platelet count 29,000. Chemistries on admission, sodium 136, potassium 4.3, chloride 92, creatinine 0.7. IMPRESSION: 1. Adverse chemotherapeutic reaction (pancytopenia). 2. Metastatic cervical cancer. 3. Right lower extremity deep venous thrombosis. PLAN: Isabela is a pleasant but unfortunate 45-year-old female patient, currently receiving salvage paclitaxel and carboplatin for metastatic cervical cancer. She received her initial course about 10 days ago. In retrospect probably should have considered weekly administration in Isabela's case because of prior chemoradiation. Nonetheless, I agree with proceeding with Neupogen rescue to bolster her WBCs. Would provide transfusional support of packed RBCs more so than platelets as long as the patient is asymptomatic; however I would like to expedite discharge as soon as transfusions are complete. As for the suspected cellulitis, conversion to an appropriate oral antibiotic upon discharge would be reasonable. Will ensure Isabela is scheduled for appropriate followup at which time we will discuss dose modification. Thank you very much for allowing me to participate in her care. If you have any questions or concerns, feel free to contact me at any time. JOANND
[2016-05-12] MEDS ORDERED: VANCOMYCIN INJ 900 MG in SODIUM CHLORIDE 0.9% 250ML 250 ML IV SCH (10:00)
--- NOTE | 2016-05-12 10:09 | Pharmacy Progress Note ---
Pharmacy Antibiotic Consult Date of Service: May 12, 2016. Pharmacy Dosing Scope Pharmacy is consulted to initiate Vanco/Zosyn IV dosing therapy, order appropriate labs and adjust drug dose/frequency. Subjective The patient is a 45 year old female admitted on May 12, 2016 at 00:16. Objective Height (Feet): 5 Height (Inches): 1.00 Weight (Kilograms): 59.400 Lab Results (24hrs): Item Value Date Time Creatinine 0.68 mg/dl 05/11/162139 Est Creatinine Clear Calc Drug Dose 88.4 ml/min 05/11/162139 Laboratory Tests Test 05/11/16 21:40 05/12/16 05:45 BUN/Creatinine Ratio 16.2 Blood Urea Nitrogen 11 mg/dl Creatinine 0.68 mg/dl White Blood Count 0.37 K/uL Red Blood Count 1.52 M/uL Hemoglobin 4.4 g/dL Hematocrit 13.2 % Mean Corpuscular Volume 86.8 fL Mean Corpuscular Hemoglobin 28.9 pg Mean Corpuscular Hemoglobin Concent 33.3 g/dl Platelet Count 29 K/uL Mean Platelet Volume 10.4 fL Micro Results: Item Value Date Time Urine Culture Received 05/12/16 0500 Urine , Clean Catch Pending Blood Culture Received 05/12/16 0035 Blood Pending Blood Culture Received 05/12/16 0025 Blood Pending Blood Culture Received 05/12/16 0020 Blood Pending Assessment & Plan Pt is a 45yo F w/ metastatic cervical cancer p/w ChTx induced pancytopenia and potential cellulitis. UC and BC are all currently pending. Pt population p' kinetics: t1/2=8.9hr, ke=0.0774. Renal fxn looks to be close to her baseline. Pt is afebrile. Vanco * Loading dose: Vanco 1500mg (25mg/kg) IV X 1 dose then: * Vanco 900mg (15mg/kg) IV every 10 hours set to start at 1000 on 05/12. * Goal trough level estimate: between 15 - 20 mcg/mL until C/s's result. * Trough level has been ordered for: prior to the 3rd MD. Zosyn * Recieved one time 30 min infsn * Receiving subsequent EI Zosym 3.375g Q8, appropriate for clinical status and eCrCl>20cc/min Thank you for consulting the pharmacy kinetic team and including us in the care of Ms. [facility] will continue to follow and will adjust dose/frequency as necessary. Thank you
[2016-05-12] MEDS ORDERED: BUMETANIDE IV 0.5 MG in SYRINGE 0 ML IV STA (10:22)
[2016-05-12 13:30] LABS: BUN/CREATININE RATIO 12.7 (10-20); CALCIUM 7.3 mg/dl (8.5-10.1); CREATININE 0.74 mg/dl (0.60-1.20); POTASSIUM 3.4 mmol/L (3.5-5.1)
[2016-05-12] MEDS ORDERED: AMOX875T PO (13:36)
[2016-05-12 13:46] LABS: MEAN CORPUSCULAR HGB CONC 34.9 g/dl (32-36); MEAN PLATELET VOLUME 9.5 fL (7.4-10.4); PLATELET COUNT 56 K/uL (130-400)
[2016-05-12 13:49] LABS: COMPLETE YES; EOSINOPHIL % 9.7 %; HEMATOCRIT 29.2 % (37-47); LYMPH ABS # 0.11 K/uL (1.2-3.4); LYMPHOCYTE % 33.4 %; MEAN CELL VOLUME 85.4 fL (80-100); MEAN CORPUSCULAR HEMOGLOBIN 29.8 pg (25-34); METAMYELOCYTE % 1.4 %; NEUTROPHILS % 6.9 %; RED BLOOD COUNT 3.42 M/uL (4.2-5.4); VARIANT LYM ABS # 0.08 K/uL; VARIANT LYMPHOCYTE % 23.6 %; WHITE BLOOD COUNT 0.33 K/uL (4.8-10.8)
[2016-05-12 13:50] LABS: ALB/GLOB RATIO 0.6 (0.9-2); THYROID STIMULATING HORMONE 8.68 uIu/ml (0.300-4.500)
--- NOTE | 2016-05-12 16:46 | Discharge Instructions ---
Discharge Instructions Date of Service May 12, 2016. Admission Reason for Admission: Cellulitis, Cervical Cancer, Pancytopenia Due To Discharge Discharge Diagnosis / Problem: neutropenia Discharge Goals Goal(s): Therapeutic intervention Activity Recommendations Activity Limitations: as noted below Please try to maintain distance from those who are ill until improvement of your neutrophil count . Instructions / Follow-Up Instructions / Follow-Up you were admitted to the hospital because of abnormal blood work. You received a platelet transfusion and 3 blood transfusions while in house and a repeat lab reflected improvement in levels. you did receive a drug which will help your body produce WBC on its own. We discussed the case with Dr Kelly and because of concern of getting an infection in house we will be d/c you with close follow up. 1. Please follow up with Dr Brand on sunday at 330 - as per Dr Kelly, continue lovenox and coumadin as discussed and a decision to continue lovenox will be made with her 2. Continue the antibiotics as prescribed, make sure to take with food as it may make your stomach upset 3. If you develop a fever or worsening symptoms please call oncology and directly go to the ED Other hernandez follow up with oncology as already arranged 4. please follow up with PCP next week. Current Hospital Diet Patient's current hospital diet: Diabetes Type 2 Diet Discharge Diet Recommended Diet: Regular Diet Pending Studies Studies pending at discharge: no Laboratory Results Hemoglobin A1c Test 03/20/16 12:30 Range/Units Estimated Average Glucose 120 mg/dl Hemoglobin A1c 5.8 H 4.5-5.6 % Lipid Panel Test 04/17/16 11:10 Range/Units Triglycerides Level 159 H 0-150 mg/dl Cholesterol Level 203 H 0-200 mg/dl HDL Cholesterol 49 mg/dl Cholesterol/HDL Ratio 4.1 LDL Cholesterol, Calculated 122 mg/dl Medical Emergencies . Who to Call and When: Medical Emergencies: If at any time you feel your situation is an emergency, please call 911 immediately. . Non-Emergent Contact Non-Emergency issues call your: Primary Care Provider Call Non-Emergent contact if: you have a fever, your pain is unusual for you . . "Provider Documentation" section prepared by Claudia Enriquez. VTE Core Measure Inpt VTE Proph given/why not?: Contraindicated
--- NOTE | 2016-05-12 16:58 | Discharge Summary ---
Discharge Summary Date of Service May 12, 2016. (Claudia Enriquez MD) Discharge Summary Admission Date: May 12, 2016 at 00:16 Discharge Date: May 12, 2016 Discharge Disposition: Home Principal Diagnosis: pancytopenia (Claudia Enriquez MD) Medication Reconciliation New Medications: Amoxicillin & Pot Clavulanate (Augmentin 875-125 mg) 1 Tab Tab 1 TAB PO BID for 7 Days, #14 TAB Continued Medications: Enoxaparin Sodium (Lovenox) 80 Mg/0.8 Ml Inj 70 MG SQ DAILY, SYR until INR > 2.0 Fentanyl (Duragesic) 50 Mcg/Hr Dis 100 MCG TD CQ72HR PRN for Pain CHANGED 05/10/16. Levothyroxine Sodium (Levothyroxine Sodium) 137 Mcg Tab 1 TAB PO DAILY for 90 Days, #90 TAB 3 Refills Ondansetron Hcl (Zofran) 8 Mg Tab 8 MG PO Q8 PRN for Nausea, TAB Oxycodone Ir (Roxicodone Ir) 5 Mg Tab 5 MG PO Q4H PRN for Severe Pain, TAB Prochlorperazine Maleate (Compazine) 10 Mg Tab 1 TAB PO Q6 PRN for Nausea or Vomiting for 7 Days, #30 TAB 3 Refills Senna (Senokot) 8.6 Mg Tab 1 TAB PO DAILY, TAB Warfarin Sod (Jantoven) 2 Mg Tab 2 MG PO QPM, TAB weekly dose being established Discharge Exam Patient was asymptomatic and feeling well after transfusion. Discussed discharge with patient and she was agreeable, questions and concerns addressed Review of Systems: Constitutional: No fever Eyes: No worsening of vision ENT: No hearing loss Respiratory: No cough, No dyspnea at rest, No dyspnea on exertion, No shortness of breath, No sputum, No wheezing Cardiovascular: No chest pain Abdomen: No constipation, No diarrhea, No nausea, No pain, No vomiting Musculoskeletal: + swelling (R>L ), No joint pain, No muscle pain Genitourinary - Female: No dysuria, No hematuria Neurologic: No balance problems, No numbness/tingling, No weakness Endocrine: + fatigue Hematologic / Lymphatic: + problem reported (DVT in right LE), No abnormal bleeding/bruising Integumentary: No rash Physical Exam: General Appearance: WD/WN, no apparent distress Eyes: normal inspection ENT: normal ENT inspection Neck: supple Respiratory/Chest: lungs clear, normal breath sounds, no respiratory distress, no accessory muscle use Cardiovascular: regular rate, rhythm, no murmur Abdomen / GI: normal bowel sounds, non tender, soft Extremities: + pedal edema (+4 R>L), + pertinent finding (right LE swelling / redness) Neurologic/Psychiatric: alert, normal mood/affect, oriented x 3 Skin: normal color, warm/dry, no rash Lymphatic: no adenopathy (Claudia Enriquez MD) Review of Systems: Constitutional: No chills, No fever Respiratory: No shortness of breath Cardiovascular: No chest pain Abdomen: No nausea, No pain, No vomiting Physical Exam: General Appearance: no apparent distress Respiratory/Chest: lungs clear, no respiratory distress Cardiovascular: regular rate, rhythm Abdomen / GI: normal bowel sounds, non tender, soft Neurologic/Psychiatric: alert, oriented x 3 Skin: warm/dry (Opal Mahan M.D.) Hospital Course This is a 45 yo f with cervical carcinoma with metastasis. She was told by her PCP to come to the ED because of abnormalities in her CBC. She was evaluated and found to be pancytopenic most likely secondary to her most recent chemo treatment. She was given 3 units of irradiated RBC, 1 unit of irradiated PLT and Neupogen. After discussion with Dr Kelly, it would be best to d/c her as she is at high risk of acquiring an infection. Also discussed continuing her lovenox and coumadin in the presence of pancytopenia and as she is not actively bleeding but does have a DVT it will be continued and she will have close follow up with Dr Brand 1. Follow up with hem/ onc as previously arranged 2. Follow up with Dr Brand sunday - cont lovenox and coumadin for now 3. return if symptoms worsening or fever develops Total Time Spent: Less than 30 minutes This includes examination of the patient, discharge planning, medication reconciliation, and communication with other providers. (Claudia Enriquez MD) I have reviewed the medical record and performed a history and physical examination of this patient today. I have discussed the case with Dr. Enriquez. The above note reflects my findings, conclusions, and recommendations. Total Time Spent: Greater than 30 minutes (35 min) (Opal Mahan M.D.) Discharge Instructions Please refer to the electronic Patient Visit Report (Discharge Instructions) for additional information. (Claudia Enriquez MD) Additional Copies To Dejuan Bailey M.D.
[2016-05-13] MEDS ORDERED: VANCOMYCIN TROUGH ONE (05:30)
[2016-05-13] MEDS ORDERED: FILGRASTIM 480 MCG/1.6 ML VIAL SC SCH (09:00)
[2016-05-14] MEDS ORDERED: FENTANYL PATCH REMOVE & WASTE SCH (08:59)
[2016-05-14] MEDS ORDERED: FENTANYL 100 MCG/HR TDSY TD SCH (09:00)
[2016-05-15] MEDS ORDERED: PHYT100T PO (16:12)
[2016-05-18] MEDS ORDERED: CALC500C3 PO (16:40)
[2016-05-18] MEDS ORDERED: FNTTP75 EXT (16:40)
[2016-05-18] MEDS ORDERED: LEVO137T3 PO (16:40)
[2016-05-18] MEDS ORDERED: MULT-506 PO (16:40)
[2016-05-18] MEDS ORDERED: WARF2TAB8 PO (16:42)
[2016-05-29] MEDS ORDERED: MRN/25 PO (10:58)
[2016-05-29] MEDS ORDERED: potassium PO (11:55)
[2016-06-21] MEDS ORDERED: PHYT100T PO (15:10)
[2016-07-12] MEDS ORDERED: SENN8.6T25 PO (15:56)
[2016-07-12] MEDS ORDERED: synthroid PO (15:56)
[2016-07-12] MEDS ORDERED: CHOL1000 PO (15:56)
[2016-08-30] MEDS ORDERED: OXYC-57 PO (16:21)
[2016-10-09] MEDS ORDERED: SYN150 PO (13:01)
[2016-10-09] MEDS ORDERED: MGNO400 PO (13:01)
[2016-10-09] MEDS ORDERED: CYM20 PO (13:01)
[2016-10-09] MEDS ORDERED: DRGTP100 TD (13:01)
[2016-10-09] MEDS ORDERED: DRGTP25 TD (13:01)
[2016-10-09] MEDS ORDERED: KFL500 PO (13:01)
[2016-10-09] MEDS ORDERED: DXY100 PO (13:01)
[2016-10-09] MEDS ORDERED: LVNIS80 SQ (13:01)
[2016-10-27] MEDS ORDERED: DLD25PCA IV (12:05)
== END 2016-05-12 20:45 | disposition home or self-care (01) | DRG 809 ==
LOC: ENRESERVDT → ENRESERVTM → C.EDB 19:32 → C.2T 05-12 00:16
PROVIDERS: ADMIT Hospitalist; ATTEND Family Medicine
DX: D61.810 Antineoplastic chemotherapy induced pancytopenia (principal); I82.401 Acute embolism and thrombosis of unspecified deep veins of right lower extremity; L03.90 Cellulitis, unspecified; C53.9 Malignant neoplasm of cervix uteri, unspecified; T45.1X5A Adverse effect of antineoplastic and immunosuppressive drugs, initial encounter; Z92.3 Personal history of irradiation; Z92.21 Personal history of antineoplastic chemotherapy; Z79.899 Other long term (current) drug therapy; Z79.01 Long term (current) use of anticoagulants; Z79.891 Long term (current) use of opiate analgesic

== ENCOUNTER → 2016-05-11 | Outpatient (CLI) | payer BC ==
[~2016-05-11] MED LIST changes: -OPTIRAY 320 IV PRN
[2016-05-11 15:33] LABS: HEMATOCRIT 18.1 % (37-47); MEAN CELL VOLUME 86.2 fL (80-100); MEAN CORPUSCULAR HEMOGLOBIN 29.5 pg (25-34); MEAN CORPUSCULAR HGB CONC 34.3 g/dl (32-36); MEAN PLATELET VOLUME 9.5 fL (7.4-10.4); PLATELET COUNT 30 K/uL (130-400); WHITE BLOOD COUNT 0.33 K/uL (4.8-10.8)
[2016-05-11 15:40] LABS: THYROID STIMULATING HORMONE 5.29 uIu/ml (0.300-4.500)
[2016-05-11 15:48] LABS: PLT ESTIMATE DECREASED
== END | disposition home or self-care (01) ==
LOC: C.LAB 09:38
PROVIDERS: ATTEND Family Medicine
DX: E03.8 Other specified hypothyroidism (principal)

== ENCOUNTER → 2016-06-07 | Outpatient (CLI) | payer BC ==
[~2016-06-07] MED LIST changes: +CALC500C3 PO; +CHOL1000 PO; +CYM20 PO; +DLD25PCA IV; +DRGTP100 TD; +DRGTP25 TD; +DXY100 PO; -ENOX1INJ11 SQ; +ENOX80IN SQ; -FENT50DI19 TD; +FNTTP75 EXT; +KFL500 PO; +LEVO137T3 PO; -LEVO75TA PO; +LVNIS80 SQ; +MGNO400 PO; +MRN/25 PO; +MRN25 PO; +MULT-506 PO; +OXYC-57 PO; +PHYT100T PO; +POTA75TA PO; -SENN-61 PO; +SENN8.6T25 PO; +SYN150 PO; +potassium PO; +synthroid PO
[2016-06-07 13:17] LABS: THYROID STIMULATING HORMONE 2.8 uIu/ml (0.300-4.500)
== END | disposition home or self-care (01) ==
LOC: C.LAB 09:54
PROVIDERS: ATTEND Family Medicine
DX: E03.8 Other specified hypothyroidism (principal); D63.8 Anemia in other chronic diseases classified elsewhere; I82.543 Chronic embolism and thrombosis of tibial vein, bilateral; C53.0 Malignant neoplasm of endocervix

== ENCOUNTER → 2016-06-19 | Outpatient (CLI) | payer BC ==
[~2016-06-19] MED LIST changes: +GADAVIST IV PRN
--- NOTE | 2016-06-19 19:58 | DIAGNOSTIC IMAGING REPORT ---
MRI LUMBAR SPINE COMBINATION CLINICAL HISTORY: Back pain. Cervical carcinoma. TECHNIQUE: Sagittal and axial T1, T2 and STIR images were obtained. Images were acquired before and after the administration of 7 cc of intravenous Gadavist COMPARISON STUDY: PET/CT scan dated 02/16/2016, outside MRI the lumbar spine dated 12/20/2015 OBSERVATIONS: There is a severe L3 compression deformity. There is decreased T1 marrow signal within the L3 vertebral body. Given the prior findings which suggested tumor invasion the L3 vertebra, this fracture is likely pathologic. There is mild retropulsion. There is a to small to characterize 5 mm focus of decreased T1 signal within the T11 vertebra. L1-2: No disc protrusions or extrusions. No evidence of spinal canal or neural foraminal compromise. L2-3: No disc protrusions or extrusions. No evidence of spinal canal or neural foraminal compromise. There is a severe L3 compression fracture demonstrating greater than 90% loss in height. There is 4 mm of retropulsion with mild secondary spinal canal narrowing. L3-4: No disc protrusions or extrusions. No evidence of spinal canal or neural foraminal compromise. There is severe right-sided foraminal narrowing secondary to the pathologic L3 compression fracture. L4-5: No disc protrusions or extrusions. No evidence of spinal canal or neural foraminal compromise. L5-S1: No disc protrusions or extrusions. No evidence of spinal canal or neural foraminal compromise. The conus medullaris and cauda equina appear normal. There is no pathologic cord enhancement. There is mild L3 vertebral body enhancement. There is decreased adenopathy in the para-aortic region. There is been interval decrease in size of the psoas masses. IMPRESSION: 1. Progressive severe pathologic L3 compression fracture with secondary right-sided L3-4 foraminal narrowing 2. Marked interval decrease in the adenopathy. Electronically signed by: Vega Haley M.D. 06/19/2016 7:56 PM Dictated Date/Time: 06/19/2016 7:50 PM
== END | disposition home or self-care (01) ==
LOC: C.MRI 18:41
PROVIDERS: ATTEND Internal Medicine Hematology & Oncology
DX: C53.0 Malignant neoplasm of endocervix (principal); M84.48XA Pathological fracture, other site, initial encounter for fracture

== ENCOUNTER → 2016-07-19 | Outpatient (CLI) | payer BC ==
[~2016-07-19] MED LIST changes: -CALC500C3 PO; -GADAVIST IV PRN; -LEVO137T3 PO; -PHYT100T PO
[2016-07-19 10:17] LABS: INR 1.8 (0.9-1.1); PROTHROMBIN TIME (PATIENT) 19.7 SECONDS (9.0-12.0)
[2016-07-19 10:47] LABS: THYROID STIMULATING HORMONE 1.32 uIu/ml (0.300-4.500)
--- NOTE | 2016-07-24 13:13 | CODING QUERY MEDICAL NECESSITY ---
SUPPORTING DIAGNOSIS NEEDED Dr. Bailey, A supporting diagnosis is required for the test/procedure performed on this patient in order for us to be reimbursed by the patient's insurance. Please provide a supporting diagnosis for the following test/procedure listed below next to the test name along with your signature. *If there is no additional diagnosis for this patient that would support the following test/procedure please document that below next to the test/procedure. Test(s)/Procedure(s) that require a supporting diagnosis: * ([id number]) VITAMIN D ASSAY DIAGNOSIS: DATE OF SERVICE: 07/19/16 Provider Signature: Date: Thank you [facility] Once completed, please kindly fax back to [phone] For questions please call [phone]
== END | disposition home or self-care (01) ==
LOC: C.LAB 16:35
PROVIDERS: ATTEND Family Medicine
DX: E03.2 Hypothyroidism due to medicaments and other exogenous substances (principal); I82.543 Chronic embolism and thrombosis of tibial vein, bilateral; E87.6 Hypokalemia; D63.8 Anemia in other chronic diseases classified elsewhere; Z85.41 Personal history of malignant neoplasm of cervix uteri; I82.523 Chronic embolism and thrombosis of iliac vein, bilateral; I82.221 Chronic embolism and thrombosis of inferior vena cava

== ENCOUNTER → 2016-08-23 | Outpatient (CLI) | payer BC ==
[~2016-08-23] MED LIST changes: +OPTIRAY 320 IV PRN
--- NOTE | 2016-08-23 14:22 | DIAGNOSTIC IMAGING REPORT ---
ABDOMEN AND PELVIS CT WITH IV AND ORAL CONTRAST CT DOSE: 805.71 mGycm HISTORY: TUMOR OF THE CERVIX TECHNIQUE: Multiaxial CT images of the abdomen and pelvis were performed following the use of intravenous and oral contrast. COMPARISON STUDY: Abdomen and pelvis CT 04/21/2016. FINDINGS: Trace bilateral pleural effusions. Significant progression of the severe body wall edema. Decrease in size and number in the hepatic lobe lesions consistent with improvement in the metastatic disease. Dominant lesion within the right hepatic dome measures 9 mm. This previously measured 1.9 cm. No new hepatic lesions. Cholecystectomy. The spleen, adrenal glands, and pancreas are unremarkable. 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 The bilateral common iliac veins and right external iliac vein are also likely thrombosed. This remains unchanged. No hydronephrosis. Mild bilateral urothelial thickening within the renal collecting systems and ureters and mild bladder wall thickening. The uterus is unremarkable. Small amount of ascites has developed in the interval. Mild rectal wall thickening. No evidence for bowel obstruction. There may mild thickening of the ascending colon/cecum and descending colon. Significant decrease in size in the bilateral iliac lymphadenopathy/masses dominant left iliac mass measures 1.9 cm, previously measuring 4.5 cm. There is also decrease in size in the bilateral pelvic/ovarian masses. For comparative purposes the right pelvic mass measures 5.3 x 3.0 cm, previously measuring 6.4 x 3.8 cm.. No change in the severe compression deformity within the L3 with mild retropulsion. The epidural tumor at this location is no longer visualized. IMPRESSION: 1. Interval improvement in the metastatic disease as described above. 2. Progressive severe body wall edema and a small amount of ascites. 3. There appears to be mild thickening of the cecum/ascending colon, descending colon, and rectum. This could be due to the patient's diffuse edematous state or a nonspecific colitis. 4. Mild urothelial thickening within the renal collecting systems and ureters as well as bladder wall thickening. This may represent a nonspecific pyelitis/cystitis. Recommend correlation with urinalysis. 5. No change in the thrombosed venous structures as described above. Electronically signed by: Carlos Cruz M.D. 08/23/2016 2:20 PM Dictated Date/Time: 08/23/2016 2:03 PM
== END | disposition home or self-care (01) ==
LOC: C.CTS 12:57
PROVIDERS: ATTEND Internal Medicine Hematology & Oncology
DX: C53.0 Malignant neoplasm of endocervix (principal)

== ENCOUNTER → 2016-09-01 | Outpatient (CLI) | payer BC ==
[~2016-09-01] MED LIST changes: -OPTIRAY 320 IV PRN; -OXYC1TAB3 PO
[2016-09-01 13:14] LABS: PROTHROMBIN TIME (PATIENT) 70.3 SECONDS (9.0-12.0)
[2016-09-01 13:26] LABS: INR 6.1 (0.9-1.1)
== END | disposition home or self-care (01) ==
LOC: C.LAB 12:35
PROVIDERS: ATTEND Pathology Blood Banking & Transfusion Medicine
DX: I82.409 Acute embolism and thrombosis of unspecified deep veins of unspecified lower extremity (principal)

== ENCOUNTER → 2016-09-27 | Outpatient (CLI) | payer BC ==
[2016-09-27 11:39] LABS: THYROID STIMULATING HORMONE 58.6 uIu/ml (0.300-4.500)
== END | disposition home or self-care (01) ==
LOC: C.LAB 09:49
PROVIDERS: ATTEND Family Medicine
DX: D69.59 Other secondary thrombocytopenia (principal); I10 Essential (primary) hypertension; E55.9 Vitamin D deficiency, unspecified; D63.8 Anemia in other chronic diseases classified elsewhere; E78.5 Hyperlipidemia, unspecified

== ENCOUNTER 2016-10-03 12:22 | Inpatient (IN) | payer BC ==
[~2016-10-03] VITALS: Ht 154.9 cm; Wt 79.0 kg
[~2016-10-03 12:22] MED LIST changes: -CYM20 PO; -DLD25PCA IV; -DRGTP100 TD; -DRGTP25 TD; -DXY100 PO; -ENOX80IN SQ; -KFL500 PO; -LVNIS80 SQ; -MGNO400 PO; -MRN25 PO; -POTA75TA PO; -SYN150 PO
[2016-10-03] MEDS ORDERED: SULFAMETHOXAZOLE/TRIMETHOPRIM DS 800/160MG TAB PO STA (12:51)
[2016-10-03] MEDS ORDERED: CEFAZOLIN SOD 1000MG/55 ML D5W IV STA (12:51)
[2016-10-03 13:57] LABS: HEMATOCRIT 23.6 % (37-47); MEAN CELL VOLUME 94.4 fL (80-100); MEAN CORPUSCULAR HGB CONC 31.8 g/dl (32-36); MEAN PLATELET VOLUME 9.5 fL (7.4-10.4); PLATELET COUNT 60 K/uL (130-400); WHITE BLOOD COUNT 1.49 K/uL (4.8-10.8)
[2016-10-03 13:59] LABS: BUN/CREATININE RATIO 17.6 (10-20); CALCIUM 7.2 mg/dl (8.5-10.1); CREATININE 0.71 mg/dl (0.60-1.20); POTASSIUM 3.4 mmol/L (3.5-5.1)
--- NOTE | 2016-10-03 15:57 | History and Physical ---
History & Physical Date & Time of Service: Oct 03, 2016 at 15:40 Chief Complaint: Redness @ Wound Site On Rt Leg Primary Care Physician: Dejuan Bailey M.D. History of Present Illness Source: patient, family, hospital records This patient is a pleasant 45-year-old female that presents the emergency department complaining of right lower extremity erythema and significant pain for approximately the last week. The patient has a history of metastatic cervical cancer to bone. She has chronic edema in her lower extremities. She occasionally gets "water blisters" that leak clear fluid. She develops one last week on the medial aspect of her right calf. The following morning, it became very erythematous and painful. The patient has been trying to clean wound at home with no relief. The patient also has a history of DVT in his on warfarin daily. Past Medical/Surgical History Medical Problems: (1) Deep vein blood clot of right lower extremity Status: Resolved Metastatic cervical cancer to pelvis and spine Diabetes mellitus Status post cholecystectomy Family History Cancer Diabetes mellitus Heart disease Hypertension Seizures Social History Smoking Status: Never Smoker Smokeless Tobacco Use: No Alcohol Use: none Drug Use: none Marital Status: single Occupational Status: disabled Immunizations History of Influenza Vaccine: Yes History of Tetanus Vaccine?: Yes History of Pneumococcal: No History of Hepatitis B Vaccine: Unknown Multi-Drug Resistant Organisms History of MDRO: No Allergies Coded Allergies: Sulfa Antibiotics (Verified Allergy, Intermediate, Skin Rash , 09/27/16) Home Medications Scheduled Cholecalciferol (Vitamin D3), 1 TAB PO DAILY Dronabinol (Marinol), 1 TAB PO BID Fentanyl (Fentanyl), 75 MCG EXT CQ72HR Multivitamin (Multivitamin), 1 TAB PO DAILY Sennosides (Senna Laxative), 1 TAB PO Q2D Warfarin Sod (Jantoven), 2 MG PO 4XWK Warfarin Sod (Jantoven), 3 MG PO 3XWK [potassium], 1 TAB PO BID [synthroid], 137 MCG PO DAILY Scheduled PRN Ondansetron Hcl (Zofran), 8 MG PO Q8 PRN for Nausea Oxycodone/Acetaminophen 5MG/325MG (Percocet 5MG/325MG), 1 TABLET PO Q4H PRN for Pain Prochlorperazine Maleate (Compazine), 1 TAB PO Q6 PRN for Nausea or Vomiting Review of Systems 10 system review performed and negative unless noted in HPI or below. The patient denies chest pain, palpitations, shortness of breath, cough, vision change, hearing change, sore throat, fevers, chills, sweats, nausea, vomiting, abdominal pain, pelvic pain, blood in urine or stool, dysuria, urinary frequency or urgency, lightheadedness, dizziness, headache, memory loss , imbalance, focal or generalized weakness, numbness or tingling in arms, generalized arthralgias or myalgias, back or neck pain, night sweats, or allergy symptoms. The review of systems is otherwise negative other than for that already noted above, and at least 10 systems have been reviewed. Physical Exam Vital Signs Date Time Temp Pulse Resp B/P (MAP) Pulse Ox O2 Delivery O2 Flow Rate FiO2 10/03/16 14:08 96 15 125/82 97 Room Air 10/03/16 12:24 36.8 117 18 112/74 93 Room Air General Appearance: + cachetic, + pertinent finding (chronically ill in appearance, but in no distress) Head: normocephalic, atraumatic, + pertinent finding (very pale) Eyes: PERRL, EOMI ENT: + pertinent finding (oral mucosa moist. Pale.) Neck: no JVD Respiratory/Chest: lungs clear Cardiovascular: no murmur, + tachycardia Abdomen/GI: non tender, soft, + pertinent finding (bowel sounds hypoactive.) Extremities/Musculoskelatal: + pertinent finding (+2 pitting edema in the lower extremity is bilaterally. Approximately 4 cm, bandlike area of erythema and tenderness to the medial aspect of the right calf. There is a centralized eschar) Neurologic/Psych: no motor/sensory deficits, oriented x 3 Skin: + pertinent finding (as noted above) Diagnostics Laboratory Results Results Past 24 Hours Test 10/03/16 13:10 10/03/16 15:19 Range/Units White Blood Count 1.49 4.8-10.8 K/uL Red Blood Count 2.50 4.2-5.4 M/uL Hemoglobin 7.5 12.0-16.0 g/dL Hematocrit 23.6 37-47 % Mean Corpuscular Volume 94.4 80-100 fL Mean Corpuscular Hemoglobin 30.0 25-34 pg Mean Corpuscular Hemoglobin Concent 31.8 32-36 g/dl Platelet Count 60 130-400 K/uL Mean Platelet Volume 9.5 7.4-10.4 fL RDW Standard Deviation 68.7 36.4-46.3 fL RDW Coefficient of Variation 21.1 11.5-14.5 % Sodium Level 142 136-145 mmol/L Potassium Level 3.4 3.5-5.1 mmol/L Chloride Level 106 98-107 mmol/L Carbon Dioxide Level 30 21-32 mmol/L Anion Gap 6.0 3-11 mmol/L Blood Urea Nitrogen 13 7-18 mg/dl Creatinine 0.71 0.60-1.20 mg/dl Est Creatinine Clear Calc Drug Dose 94.3 ml/min Estimated GFR () 120.1 Estimated GFR (Non- 103.6 BUN/Creatinine Ratio 17.6 10-20 Random Glucose 77 70-99 mg/dl Calcium Level 7.2 8.5-10.1 mg/dl Impression Assessment and Plan 45-year-old female with a history of metastatic cervical cancer and chronic edema in her legs presents emergency department with erythema, tenderness and warmth to her right lower extremity consistent with cellulitis. Given her neutropenic state, the patient will be admitted and treated with IV antibiotics Neutropenia/cellulitis -admit to medical floor -begin vancomycin -f/u blood cx -follow CBC -consider oncology consult if not improving DVT -continue home dose warfarin 1 mg every other day -will need to closely follow INR-->pt follows with Dr. Rojas for her INR that varies quite a bit diabetes mellitus -follow BSGs AC, HS and with meals -insulin sliding scale CODE STATUS -LEVEL I FULL CODE Attending Addendum: I have physically seen and examined this patient, have directed the physician assistants medical activities, and agree with the H&P as noted above with the following exceptions: NONE The patient is awake, alert and oriented 3, cachectic, chronically ill- appearing, pale, sitting upright in bed, and in no acute distress. HEENT--PERRL, EOMI, mucous membranes and oropharynx dry. Neck--supple, no JVD or bruits, thyroid normal, trachea midline, no adenopathy. Heart--tachycardic and regular, no extra beats, no murmurs, rubs or gallops. Lungs--clear bilaterally with good air movement, no respiratory distress, no accessory muscle use. Abdomen--decreased bowel sounds and soft, nontender and nondistended, no hernias or masses, no organomegaly. Extremities--no edema. There are good distal pulses b/l. Dermatologic--pale, right lower extremity with 4-5 cm in diameter area of erythema and warmth and tenderness, with medial area of eschar. Neurologic--cranial nerves II through XII grossly intact, motor and sensory examination normal. Rheumatologic--normal range of motion. Psychiatric--normal affect. Assessment and Plan: 1. Right lower extremity cellulitis/continue/metastatic cervical cancer-- patient be admitted to medical surgical floor Placed on vancomycin IV with pharmacokinetic monitoring, and Zosyn 3.375 mg IV every 8 hours. Follow blood cultures, CBC with differential, BMP and magnesium levels. 2. Pancytopenia-- Consult her oncologist. Level of Care Med/Surg Advanced Directives Existing Advance Directive: No Existing Living Will: No Existing Power of [employer] Architect: No Resuscitation Status FULL RESUSCITATION VTE Prophylaxis VTE Risk Assessment Done? Y/N: Yes Risk Level: Moderate Given or contraindicated: Warfarin (Coumadin) Social Service Consult Cancer Patient Under [place]
[2016-10-03] MEDS ORDERED: MAGNESIUM HYDROXIDE SUSP 30 ML UDC PO PRN (16:00)
[2016-10-03] MEDS: INSULIN ASPART 100 UNITS/ML 3 ML PEN SC SCH ×2 (16:00→19:35)
[2016-10-03] MEDS ORDERED: ONDANSETRON INJ 2 MG/ML 2 ML VIAL IV PRN (16:00)
[2016-10-03] MEDS ORDERED: ACETAMINOPHEN 325 MG TAB PO PRN (16:00)
--- NOTE | 2016-10-03 16:09 | EMERGENCY ROOM VISIT NOTE ---
History Report prepared by Leona: Shin Valentine Under the Supervision of: Dr. Cam Eli D.O. First contact with patient: 12:30 Chief Complaint: WOUND INFECTION Stated Complaint: REDNESS @ WOUND SITE ON RT LEG History of Present Illness The patient is a 45 year old female with metastatic cervical cancer who presents to the Emergency Room with complaints of a worsening wound infection that started last week. Per the patient's mother, the patient had a little water blister last week that busted, and developed an infection. The patient had a band-aid put on the blister the night the blister started, but the blister drained when the band-aid was taken off the morning after. Ever since then, the patient's right leg redness has worsened and grown in size, as well as became more painful. The patient notes that she has had bilateral lower extremity edema since the cancer started, but the right leg edema has worsened. The patient was diagnosed with cancer in January of last year, and has had radiation and is currently getting chemotherapy. She denies any recent fevers. Source of History: patient, family Onset: Last week Position: leg (left) Quality: other (wound infection) Timing: worsening Associated Symptoms: No fevers Note: Associated symptoms: Worsening right leg redness, swelling, pain. Review of Systems See HPI for pertinent positives & negatives. A total of 10 systems reviewed and were otherwise negative. Past Medical & Surgical Medical Problems: (1) Cellulitis (2) Deep vein blood clot of right lower extremity (3) Diabetes (4) Pancytopenia due to chemotherapy Family History Cancer Diabetes mellitus Heart disease Hypertension Seizures Social History Smoking Status: Never Smoker Marital Status: single Occupation Status: disabled Current/Historical Medications Scheduled Cholecalciferol (Vitamin D3), 1 TAB PO DAILY Dronabinol (Marinol), 1 TAB PO BID Fentanyl (Fentanyl), 75 MCG EXT CQ72HR Multivitamin (Multivitamin), 1 TAB PO DAILY Sennosides (Senna Laxative), 1 TAB PO Q2D Warfarin Sod (Jantoven), 2 MG PO 4XWK Warfarin Sod (Jantoven), 3 MG PO 3XWK [potassium], 1 TAB PO BID [synthroid], 137 MCG PO DAILY Scheduled PRN Ondansetron Hcl (Zofran), 8 MG PO Q8 PRN for Nausea Oxycodone/Acetaminophen 5MG/325MG (Percocet 5MG/325MG), 1 TABLET PO Q4H PRN for Pain Prochlorperazine Maleate (Compazine), 1 TAB PO Q6 PRN for Nausea or Vomiting Allergies Coded Allergies: Sulfa Antibiotics (Verified Allergy, Intermediate, Skin Rash , 09/27/16) Physical Exam Vital Signs Date Time Temp Pulse Resp B/P (MAP) Pulse Ox O2 Delivery O2 Flow Rate FiO2 10/03/16 15:52 106 20 131/86 99 Room Air 10/03/16 14:08 96 15 125/82 97 Room Air 10/03/16 12:24 36.8 117 18 112/74 93 Room Air Physical Exam CONSTITUTIONAL/VITAL SIGNS: Reviewed / noted above. GENERAL: Non-toxic in appearance. INTEGUMENTARY: Warm, dry. Skin is pale. HEAD: Normocephalic. EYES: without scleral icterus or trauma. ENT/OROPHARYNX: clear and moist. LYMPHADENOPATHY/NECK: Is supple without lymphadenopathy or meningismus. RESPIRATORY: Lungs clear and equal. CARDIOVASCULAR: Regular rate and rhythm. GI/ABDOMEN: Soft and nontender. No organomegaly or pulsatile mass. No rebound or guarding. Normal bowel sounds. EXTREMITIES: Erythema in the medial aspect of the right lower leg where there is also an open wound about the size of a pencil eraser. BACK: No CVA tenderness. NEUROLOGICAL: Intact without focal deficits. PSYCHIATRIC: normal affect. MUSCULOSKELETAL: Normally developed with good muscle tone. Medical Decision & Procedures Laboratory Results 10/03/16 13:10 Red Blood Count 2.50, Mean Corpuscular Volume 94.4, Mean Corpuscular Hemoglobin 30.0, Mean Corpuscular Hemoglobin Concent 31.8, Mean Platelet Volume 9.5 10/03/16 13:10 Test 10/03/16 13:10 10/03/16 15:19 White Blood Count 1.49 K/uL (4.8-10.8) Red Blood Count 2.50 M/uL (4.2-5.4) Hemoglobin 7.5 g/dL (12.0-16.0) Hematocrit 23.6 % (37-47) Mean Corpuscular Volume 94.4 fL (80-100) Mean Corpuscular Hemoglobin 30.0 pg (25-34) Mean Corpuscular Hemoglobin Concent 31.8 g/dl (32-36) Platelet Count 60 K/uL (130-400) Mean Platelet Volume 9.5 fL (7.4-10.4) RDW Standard Deviation 68.7 fL (36.4-46.3) RDW Coefficient of Variation 21.1 % (11.5-14.5) Anion Gap 6.0 mmol/L (3-11) Est Creatinine Clear Calc Drug Dose 94.3 ml/min Estimated GFR () 120.1 Estimated GFR (Non- 103.6 BUN/Creatinine Ratio 17.6 (10-20) Calcium Level 7.2 mg/dl (8.5-10.1) Laboratory results as stated above per my review. Medications Administered Medications (Trade) Dose Ordered Sig/Janice Route Start Time Stop Time Status Last Admin Dose Admin Cefazolin Sodium (Ancef 1000mg/55 ml D5W) 2,000 mg NOW STAT IV 10/03/16 12:51 10/03/16 12:54 DC 10/03/16 14:01 2,000 MG ED Course 1240: Previous medical records were reviewed. The patient was evaluated in room B9. A complete history and physical examination was performed. 1251: Ordered Septra Ds 800/160MG Tab 1 tab PO, Ancef 1000 mg/55 ml D5W 2000 mg IV. 1500: I reevaluated the patient and she is resting comfortably. The patient verbally expressed understanding and agreement with the treatment plan. The patient will be evaluated for further treatment. 1504: I discussed the patient with Leena Chapman PA-C - [facility] parole hearing officer - she will evaluate the patient for further treatment. Medical Decision Differential diagnosis: Etiologies such as cellulitis, abscess, MRSA infection, DVT, necrotizing fasciitis, dermatitis, drug eruption, as well as others were entertained.. . This is a 45-year-old female who presents to the ED with a chief complaint of a right leg cellulitis. The patient states that she had a small water blister on her right leg last week from chronic edema. This ruptured. Today she noticed cellulitis of her leg mostly in the medial aspect of the right leg. She denies any fevers or vomiting. Her vital signs are stable. Exam reveals no obvious discharge from the wound. There is an open wound with surrounding erythema. Hemoglobin is 7.5. White blood cell count is 1.49. Her pupils normal. The patient was given IV Ancef. When it was noted that she was anemic and would require blood transfusion, the patient was typed and crossed. She will be seen by the hospitalist service for inpatient evaluation for blood transfusion as well as cellulitis and leukopenia. Medication Reconcilliation Current Medication List: was personally reviewed by me Blood Pressure Screening Patient's blood pressure: Normal blood pressure Consults Time Called: 1500 Consulting Physician: Leena Marroquin parole hearing officer Returned Call: 1504 I discussed the patient with Leena Marroquin parole hearing officer - she will evaluate the patient for further treatment. Impression Primary Impression: Cellulitis of right leg Additional Impressions: Anemia Leukopenia Scribe Attestation The scribe's documentation has been prepared under my direction and personally reviewed by me in its entirety. I confirm that the note above accurately reflects all work, treatment, procedures, and medical decision making performed by me. Departure Information Dispostion Being Evaluated By Hospitalist Referrals Dejuan Bailey M.D. (PCP) Patient Instructions My [facility] Health Problem Qualifiers Additional Impressions:
[2016-10-03 16:13] LABS: INR 2.1 (0.9-1.1); PARTIAL THROMBOPLASTIN RATIO 1.9; PROTHROMBIN TIME (PATIENT) 22.9 SECONDS (9.0-12.0)
[2016-10-03] MEDS ORDERED: VANCOMYCIN CONSULT ACTIVE PRN (16:30)
[2016-10-03] MEDS ORDERED: VANCOMYCIN INJ 1,900 MG in SODIUM CHLORIDE 0.9% 500ML 500 ML IV ONE (16:45)
[2016-10-03 16:50] LABS: LARGE PLATELETS 1+
[2016-10-03 16:53] LABS: BASO ABS # 0.01 K/uL (0-0.2); BASOPHIL % 0.9 %; EOSINOPHIL % 2.6 %; LYMPH ABS # 0.41 K/uL (1.2-3.4); LYMPHOCYTE % 27.8 %; NEUTROPHILS % 59.9 %
[2016-10-03 17:00] VITALS: BP 126/82; PULSE 97; TEMP 36.6; O2SAT 97
[2016-10-03 17:15] VITALS: BP 123/85; PULSE 92; TEMP 36.6; O2SAT 99
[2016-10-03 18:10] VITALS: BP 137/93; PULSE 95; TEMP 36.4; O2SAT 97
[2016-10-03 18:11] VITALS: BP 137/93; PULSE 95; TEMP 36.4; O2SAT 97; Ht 154.9 cm; Wt 79.0 kg
--- NOTE | 2016-10-03 18:47 | Pharmacy Progress Note ---
Pharmacy Abx Initial Consult Date of Service Oct 03, 2016. Pharmacy Dosing Scope Date of Consult: 10/03/16 Consultation requested by: Leena Molina Pharmacy is consulted to initiate vancomycin IV dosing therapy, order appropriate labs and adjust drug dose/frequency. Subjective The patient is a 45 year old female admitted on Oct 03, 2016 at 16:03. Objective Height (Feet): 5 Height (Inches): 1.00 Weight (Kilograms): 76.000 Vital Signs (Past 12Hrs) Vital Signs Past 12 Hours Date Time Temp Pulse Resp B/P (MAP) Pulse Ox O2 Delivery O2 Flow Rate FiO2 10/03/16 18:11 36.4 95 18 137/93 97 Room Air 10/03/16 18:10 36.4 95 18 137/93 (108) 97 Room Air 10/03/16 17:15 36.6 92 18 123/85 99 10/03/16 17:00 36.6 97 20 126/82 97 10/03/16 15:52 106 20 131/86 99 Room Air 10/03/16 14:08 96 15 125/82 97 Room Air 10/03/16 12:24 36.8 117 18 112/74 93 Room Air Lab Results (24Hrs) Laboratory Tests (24 Hours) Test 10/03/16 13:10 White Blood Count 1.49 K/uL (4.8-10.8) L Red Blood Count 2.50 M/uL (4.2-5.4) L Hemoglobin 7.5 g/dL (12.0-16.0) L Hematocrit 23.6 % (37-47) L Mean Corpuscular Volume 94.4 fL (80-100) Mean Corpuscular Hemoglobin 30.0 pg (25-34) Mean Corpuscular Hemoglobin Concent 31.8 g/dl (32-36) L Platelet Count 60 K/uL (130-400) L Mean Platelet Volume 9.5 fL (7.4-10.4) Micro Results Date/Time Source Procedure Growth Status 10/03/16 18:01 Blood Blood Culture Pending Received 10/03/16 15:54 Blood Blood Culture Pending Rosalee Batch Assessment & Plan Assessment 45 year old female with a PMH of metastatic ovarian CA and chronic edema of lower extremity admitted with LLE cellulitis. She has chronic blisters on her legs and is immunosuppressed. She is a diabetic. Plan vancomycin for treatment of cellulitis Vancomycin IV * Loading dose: 1900 mg (25 mg/kg) * Maintenance dose: 1150 mg IV (15 mg/kg) every 10 hours * Goal trough level for SSTI in immunocompromised patient : 15 to 20 mcg/mL * Trough level ordered for 10/05/16 Pharmacy will continue to follow and will adjust dose/frequency as necessary. Thank you.
[2016-10-03] MEDS: NSS + 20MEQ KCL 1000ML 1,000 ML IV SCH (19:03)
[2016-10-03] MEDS: WARFARIN SOD 1 MG TAB PO SCH (19:10)
[2016-10-03 19:19] VITALS: BP 135/89; PULSE 113; TEMP 36.8; O2SAT 97
[2016-10-03] MEDS: MoRPHine SULFATE 4 MG/ML 1 ML CARP\\VIAL IV PRN (19:30)
[2016-10-03 19:56] LABS: COMPLETE YES
[2016-10-03 23:34] VITALS: BP 123/82; PULSE 114; TEMP 36.8; O2SAT 98
[2016-10-04] VITALS (8 sets, daily range): BP systolic 112–128; BP diastolic 70–88; PULSE 104–119; TEMP 36.4–36.9; O2SAT 93–99
[2016-10-04] MEDS: MoRPHine SULFATE 4 MG/ML 1 ML CARP\\VIAL IV PRN ×4 (00:32→21:05)
[2016-10-04] MEDS: NSS + 20MEQ KCL 1000ML 1,000 ML IV SCH (02:13)
[2016-10-04] MEDS: VANCOMYCIN INJ 1,150 MG in SODIUM CHLORIDE 0.9% 250ML 250 ML IV SCH ×2 (05:35→16:31)
[2016-10-04 06:07] LABS: HEMATOCRIT 26.3 % (37-47); MEAN CORPUSCULAR HEMOGLOBIN 30.1 pg (25-34); MEAN CORPUSCULAR HGB CONC 32.7 g/dl (32-36); MEAN PLATELET VOLUME 10.6 fL (7.4-10.4); PLATELET COUNT 67 K/uL (130-400); RED BLOOD COUNT 2.86 M/uL (4.2-5.4)
[2016-10-04 06:10] LABS: INR 2.1 (0.9-1.1); PROTHROMBIN TIME (PATIENT) 23.3 SECONDS (9.0-12.0)
[2016-10-04 06:26] LABS: BUN/CREATININE RATIO 15.1 (10-20); CALCIUM 7.1 mg/dl (8.5-10.1); CREATININE 0.72 mg/dl (0.60-1.20); POTASSIUM 3.7 mmol/L (3.5-5.1)
[2016-10-04] MEDS: LEVOTHYROXINE 150 MCG TAB PO SCH (06:30)
[2016-10-04 07:44] LABS: ANISOCYTOSIS PRESENT; COMPLETE YES; LARGE PLATELETS 1+; LYMPH ABS # 0.53 K/uL (1.2-3.4); META ABS # 0.02 K/uL (0-0)
[2016-10-04] MEDS: CHECK FENTANYL PATCH PLACEMENT SCH ×3 (08:00→16:00)
[2016-10-04] MEDS ORDERED: FENTANYL 75 MCG/HR TDSY TD SCH (09:00)
[2016-10-04] MEDS: INSULIN ASPART 100 UNITS/ML 3 ML PEN SC SCH ×2 (09:20→11:00)
[2016-10-04] MEDS ORDERED: FENTANYL PATCH REMOVE & WASTE SCH (09:45)
[2016-10-04] MEDS ORDERED: FENTANYL PATCH REMOVE & WASTE ONE (10:59)
[2016-10-04] MEDS ORDERED: FENTANYL 100 MCG/HR TDSY TD SCH (11:00)
[2016-10-04] MEDS ORDERED: MAGNESIUM SULFATE 1GM / D5W 1 GM in PREMIXED IN D5W 100 ML IV ONE ×4 (11:30→16:00)
[2016-10-04] MEDS ORDERED: MAGNESIUM SULFATE 1GM / D5W 1 GM in PREMIXED IN D5W 100 ML IV SCH (11:40)
--- NOTE | 2016-10-04 12:28 | Clinical Documentation Query ---
CLINICAL DOCUMENTATION QUERY 45 year old female with metastatic cervical cancer who presents to the Emergency Room with complaints of a worsening wound infection In your clinical opinion is this patient being managed for: ( ) Pancytopenia due to Chemotherapy ( ) Other explanation of clinical findings (Please Explain) ( ) Unable to determine (Please Define) ( ) Need to Discuss ( ) Not Agree The medical record reflects the following clinical findings, treatment, and risk factors. Clinical Indicators: WBC 1.49, Hgb 7.5, Hct 23.6, PLT 60, Pancytopenia per H&P. Treatment: 1 unit of PRBC's, IV Vancomycin, Oncology consult per H&P Risk Factors: Chemotherapy Please clarify and document your clinical opinion in the progress notes and discharge summary. Terms such as "probable", "suspected", "likely", "questionable", "possible", or "still to be ruled out" are acceptable. IF IN AGREEMENT, YOU MUST DOCUMENT ABOVE DIAGNOSTIC STATEMENT IN DAILY PROGRESS NOTES AND DISCHARGE SUMMARY. This document is not part of the patient's record. Thank You, Ciro Alvarado, RN [phone]
--- NOTE | 2016-10-04 22:55 | Progress Note ---
Subjective Date of Service: Oct 04, 2016. Subjective Pt evaluation today including: conversation w/ patient, physical exam, chart review, lab review, review of studies, review of inpatient medication list Pain: back, right leg - chronic PO Intake: poor patient's main complaints are that of RLE pain, back pain, weakness, fatigue, poor appetite she reports her last chemotherapy was about 3 weeks ago due to for chemo next week requests consult by Dr. Kelly, her primary oncologist denies h/o liver disease reports LE edema has been present "for a while" but getting worse Problem List Medical Problems: (1) Anemia Status: Acute (2) Anemia Status: Acute (3) Cellulitis of right leg Status: Acute (4) Leukopenia Status: Acute Review of Systems Respiratory: No shortness of breath Cardiac: No chest pain Abdomen: No pain Objective Vital Signs Date Time Temp Pulse Resp B/P (MAP) Pulse Ox O2 Delivery O2 Flow Rate FiO2 10/04/16 20:00 97 Room Air 10/04/16 16:00 97 Room Air 10/04/16 14:51 36.8 106 18 115/78 (90) 97 Room Air 10/04/16 11:27 36.5 104 18 128/81 (97) 99 Room Air 10/04/16 08:00 93 Room Air 10/04/16 07:34 36.7 107 20 112/70 (84) 93 Room Air 10/04/16 03:33 36.9 111 20 121/76 (91) 94 Room Air 10/04/16 01:00 Room Air 10/03/16 23:34 36.8 114 18 123/82 (96) 98 Room Air Physical Exam General Appearance: no apparent distress, + cachetic (in her face/neck/upper body; sickly ) ENT: pharynx normal Neck: no JVD Respiratory/Chest: no respiratory distress, no accessory muscle use, + decreased breath sounds (bases) Cardiovascular: no gallop, no murmur, + tachycardia Abdomen: normal bowel sounds, non tender, no organomegaly, + distended (ascites ?) Extremities: + swelling (severe, 4++ - from feet to the hips) Neurologic/Psychiatric: alert, oriented x 3 Skin: + pallor, + pertinent finding (stasis changes b/l shins; RLE with mild erythema in the distal alves with central ulcer area and minimal eschar present) Laboratory Results Last 24 Hours Test 10/03/16 21:34 10/04/16 05:34 10/04/16 05:45 10/04/16 07:28 Bedside Glucose 84 mg/dl 74 mg/dl White Blood Count 1.60 K/uL Red Blood Count 2.86 M/uL Hemoglobin 8.6 g/dL Hematocrit 26.3 % Mean Corpuscular Volume 92.0 fL Mean Corpuscular Hemoglobin 30.1 pg Mean Corpuscular Hemoglobin Concent 32.7 g/dl Platelet Count 67 K/uL Mean Platelet Volume 10.6 fL RDW Standard Deviation 62.6 fL RDW Coefficient of Variation 20.0 % Neutrophils % (Manual) 49.0 % Lymphocytes % (Manual) 33.0 % Monocytes % (Manual) 15.0 % Eosinophils % (Manual) 2.0 % Metamyelocytes % 1.0 % Neutrophils # (Manual) 0.78 K/uL Total Absolute Neutrophils 0.78 K/uL Lymphocytes # (Manual) 0.53 K/uL Total Absolute Lymphocytes 0.53 K/uL Monocytes # (Manual) 0.24 K/uL Eosinophils # (Manual) 0.03 K/uL Metamyelocytes # 0.02 K/uL Large Platelets 1+ Anisocytosis PRESENT Prothrombin Time 23.3 SECONDS Prothromb Time International Ratio 2.1 Sodium Level 143 mmol/L Potassium Level 3.7 mmol/L Chloride Level 108 mmol/L Carbon Dioxide Level 31 mmol/L Anion Gap 4.0 mmol/L Blood Urea Nitrogen 11 mg/dl Creatinine 0.72 mg/dl Est Creatinine Clear Calc Drug Dose 94.2 ml/min Estimated GFR () 118.0 Estimated GFR (Non- 101.9 BUN/Creatinine Ratio 15.1 Random Glucose 72 mg/dl Calcium Level 7.1 mg/dl Magnesium Level 0.9 mg/dl Test 10/04/16 11:21 10/04/16 20:16 Bedside Glucose 77 mg/dl Assessment and Plan 45yo female: 1. RLE cellulitis with central ulcer w/ eschar - continue vancomycin. Appreciate wound care consultation. 2. stage 4 cervical cancer - noted. Dr. Kelly consult requested by patient and will ask for that consult tomorrow. 3. pancytopenia - 2nd to chemo +/- liver mets? Repeat CBC in am for stability. 4. neutropenia - moderate - neutropenic precautions. 2nd to chemo, liver disease, other factors? 5. severe hypomagnesemia - due to poor oral intake? renal wasting? 4 grams mag sulfate over 6 hours w/ repeat level thereafter. check urine magnesium random level. 6. severe hypoalbuminemia with resulting severe b/l edema - doubt diuretics would be helpful. 7. severe protein calorie malnutrition - boost BID/TID. 8. abnormal alk phos - either 2nd to bone mets or liver mets. 9. tachycardia - unsure of cause. Check EKG in am. 10. h/o DVT - has IVC filter; previous imaging with clot all the way to the filter. Cont coumadin, repeat INR in am. 11. hypothyroidism - continue synthroid. 12. h/o T2DM - all FSBS have been normal; stop FSBS checks and novolog sliding scale. 13. hypokalemia - resolved. 14. back pain with right leg pain - has known L3 compression fracture with nerve impingement; this is likely cause of pain. Cont fentanyl patch 100mcg q3d. Consider increase if pain is not controlled. Will likely need PT, OT Continued [facility] stay due to: multiple IV medications needed Discharge planning: uncertain
[2016-10-05] VITALS (7 sets, daily range): BP systolic 110–125; BP diastolic 72–87; PULSE 96–119; TEMP 36.5–36.9; O2SAT 94–99
[2016-10-05] MEDS: CHECK FENTANYL PATCH PLACEMENT SCH ×3 (00:02→16:19)
[2016-10-05] MEDS: VANCOMYCIN INJ 1,150 MG in SODIUM CHLORIDE 0.9% 250ML 250 ML IV SCH ×2 (02:02→12:10)
[2016-10-05] MEDS: LEVOTHYROXINE 150 MCG TAB PO SCH (05:37)
[2016-10-05 06:29] LABS: INR 1.9 (0.9-1.1); PROTHROMBIN TIME (PATIENT) 21.1 SECONDS (9.0-12.0)
[2016-10-05 06:40] LABS: HEMATOCRIT 25.1 % (37-47); MEAN CELL VOLUME 93.3 fL (80-100); MEAN CORPUSCULAR HEMOGLOBIN 31.2 pg (25-34); MEAN CORPUSCULAR HGB CONC 33.5 g/dl (32-36); MEAN PLATELET VOLUME 10.5 fL (7.4-10.4); PLATELET COUNT 77 K/uL (130-400); RED BLOOD COUNT 2.69 M/uL (4.2-5.4); WHITE BLOOD COUNT 1.84 K/uL (4.8-10.8)
[2016-10-05 06:48] LABS: BUN/CREATININE RATIO 15.7 (10-20); CREATININE 0.61 mg/dl (0.60-1.20); POTASSIUM 3.8 mmol/L (3.5-5.1)
[2016-10-05 07:43] LABS: ANISOCYTOSIS PRESENT
[2016-10-05 07:54] LABS: COMPLETE YES; EOSINOPHIL % 0.9 %; LYMPH ABS # 0.63 K/uL (1.2-3.4); LYMPHOCYTE % 34.5 %; NEUTROPHILS % 51.3 %
--- NOTE | 2016-10-05 08:36 | Oncology Consultation ---
Oncology/Heme Consultation Date of Consultation: Oct 05, 2016. Attending Physician: Ludwig Briones MD Reason for Consultation: Right lower extremity cellulitis. Metastatic cervical carcinoma. Hypoalbuminemia. History of Present Illness Vida is a very pleasant 45-year-old female patient well-known to the cancer care partnership with lengthy history of metastatic cervical cancer was admitted to [facility] yesterday because of progressive right lower extremity erythema, swelling, and ulceration. She admits over the past several day experiencing pain on the inner aspect of her calf just proximal to the ankle. Isabela has battled with swelling secondary to hypoalbuminemia resulting in edema and blistering. Apparently a large bulla in the inner aspect of her lower extremity had ruptured. She administered local care but unfortunately continued to become more painful, red, and draining. She was admitted and started on IV antibiotics. Blood cultures are pending. Mrs. Thomas was diagnosed with locally advanced cervical cancer back in 2016. She had presented with sciatica and numbness of her lower extremities. She had also suffered a 10 pound weight loss and upon initial workup MRI of the lumbar spine revealed marked abnormal adenopathy in the periaortic region as well as pelvis. She was originally worked up by gynecology oncology at [facility] confirming the diagnosis of squamous cell carcinoma the cervix of. Patient initially received chemoradiation utilizing cisplatin. Unfortunately, despite efforts her disease has progressed. Presently she is receiving weekly carboplatin and paclitaxel as salvage. During treatment she has developed deep vein thrombosis and osseous metastatic disease. She was pending orthopedic consultation to look into kyphoplasty for L3 to L4. Past Medical/Surgical History Medical Problems: (1) Anemia Status: Acute (2) Anemia Status: Acute (3) Cellulitis of right leg Status: Acute (4) Leukopenia Status: Acute Family History Cancer Diabetes mellitus Heart disease Hypertension Seizures Maternal grandaunt with lung cancer Maternal grandaunt with bladder cancer. 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 She is single with no children. Smoking Status: Never Smoker Smokeless Tobacco Use: No Alcohol Use: none Drug Use: none Marital Status: single Occupation Status: disabled Allergies Coded Allergies: Sulfa Antibiotics (Verified Allergy, Intermediate, Skin Rash , 09/27/16) Home Medications Scheduled Cholecalciferol (Vitamin D3), 1 TAB PO DAILY Dronabinol (Marinol), 1 TAB PO BID Fentanyl (Fentanyl), 75 MCG EXT [id number] Multivitamin (Multivitamin), 1 TAB PO DAILY Sennosides (Senna Laxative), 1 TAB PO Q2D Warfarin Sod (Jantoven), 2 MG PO 4XWK Warfarin Sod (Jantoven), 3 MG PO 3XWK [potassium], 1 TAB PO BID [synthroid], 137 MCG PO DAILY Scheduled PRN Ondansetron Hcl (Zofran), 8 MG PO Q8 PRN for Nausea Oxycodone/Acetaminophen 5MG/325MG (Percocet 5MG/325MG), 1 TABLET PO Q4H PRN for Pain Prochlorperazine Maleate (Compazine), 1 TAB PO Q6 PRN for Nausea or Vomiting Current Inpatient Medications Current Inpatient Medications Medications (Trade) Dose Ordered Sig/Janice Route Start Time Stop Time Status Last Admin Dose Admin Acetaminophen (Tylenol Tab) 650 mg Q4H PRN PO 10/03/16 16:00 11/02/16 15:59 Magnesium Hydroxide (Milk Of Magnesia Susp) 30 ml Q6H PRN PO 10/03/16 16:00 11/02/16 15:59 Ondansetron HCl (Zofran Inj) 4 mg Q6H PRN IV 10/03/16 16:00 11/02/16 15:59 Morphine Sulfate (MoRPHine SULFATE INJ) 4 mg Q2H PRN IV 10/03/16 16:00 10/17/16 15:59 10/04/16 21:05 4 MG Warfarin Sodium (Coumadin Tab) 1 mg Q2D@1600 PO 10/03/16 16:00 11/02/16 15:59 10/03/16 19:10 1 MG Vancomycin HCl (Consult) 1 ea UD PRN N/A 10/03/16 16:30 11/02/16 16:29 Miscellaneous Information (Check Fentanyl Patch Placement) 1 ea QS N/A 10/04/16 00:00 11/03/16 00:00 10/05/16 08:13 1 EA Vancomycin HCl 1150 mg/Sodium Chloride 273 ml @ 125 mls/hr Q10H IV 10/04/16 06:00 10/13/16 23:59 10/05/16 02:02 125 MLS/HR Heparin Sodium (Porcine) (Heparin 100 Unit/ml 5ml Flush) 5 ml PRN PRN IV 10/03/16 20:00 11/02/16 19:59 10/05/16 06:32 5 ML Levothyroxine Sodium (Synthroid Tab) 150 mcg DAILYBB PO 10/04/16 06:30 11/03/16 06:29 10/05/16 05:37 150 MCG Miscellaneous (Fentanyl Patch Remove & Waste) 1 ea Q3D@0859 N/A 10/04/16 09:45 11/03/16 09:44 10/04/16 09:43 1 EA Fentanyl (Duragesic Patch) 100 mcg Q3D@0900 TD 10/04/16 11:00 10/18/16 08:59 10/04/16 12:00 100 MCG Review of Systems Constitutional: No fever, No chills, No sweats, No weight loss, No weakness, No fatigue, No problem reported Eyes: No worsening of vision, No eye pain, No redness, No discharge, No diplopia, No problem reported ENT: No hearing loss, No unusual epistaxis, No nasal symptoms, No sore throat, No tinnitus, No dental problems, No trouble swallowing, No problem reported Respiratory: No cough, No sputum, No wheezing, No shortness of breath, No dyspnea on exertion, No dyspnea at rest, No hemoptysis, No problem reported Cardiovascular: No chest pain, No orthopnea, No PND, No edema, No claudication , No palpitations, No problem reported Abdomen: No pain, No nausea, No vomiting, No diarrhea, No constipation, No GI bleeding, No problem reported Musculoskeletal: + problem reported (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, chronic pain associated with disease progression) Genitourinary - Female: No dysuria, No urinary frequency, No urinary urgency, No urinary incontinence, No urinary retention, No hematuria, No dysmenorrhea, No menorrhagia, No metrorrhagia, No rash, No vaginal bleeding, No vaginal discharge, No vaginal itching, No vulvodynia, No , No problem reported Neurologic: No memory loss, No paralysis, No weakness, No numbness/tingling, No vertigo, No balance problems, No problem reported Psychiatric: + depression symptoms, + anxiety Endocrine: No fatigue, No excessive thirst, No excessive urination, No problem reported Hematologic / Lymphatic: + problem reported (low peripheral blood counts secondary to chemotherapy) Integumentary: + problem reported (quarter-sized ulceration on the inner aspect of her right lower extremity just above the ankle) Allergic / Immunologic: No environmental allergies, No seasonal allergies, No pet sensitivities, No food allergies, No hives, No frequent infections, No poor healing, No prolonged convalescence, No problem reported Physical Exam Date Time Temp Pulse Resp B/P (MAP) Pulse Ox O2 Delivery O2 Flow Rate FiO2 10/05/16 07:32 36.7 112 18 111/73 (86) 94 Room Air 10/05/16 04:27 36.8 96 20 122/79 (93) 94 Room Air 10/05/16 00:00 97 Room Air 10/04/16 23:08 36.4 119 16 127/88 (101) 97 Room Air 10/04/16 20:00 97 Room Air 10/04/16 16:00 97 Room Air 10/04/16 14:51 36.8 106 18 115/78 (90) 97 Room Air 10/04/16 11:27 36.5 104 18 128/81 (97) 99 Room Air General Appearance: WD/WN, no apparent distress Head: normocephalic, atraumatic Eyes: normal inspection, PERRL, EOMI ENT: normal ENT inspection Neck: supple Respiratory/Chest: chest non-tender, lungs clear, normal breath sounds Cardiovascular: regular rate, rhythm, no edema, no gallop Abdomen/GI: normal bowel sounds, non tender, soft Extremities/Musculoskelatal: normal inspection, no calf tenderness Neurologic/Psych: cd mixer helper II-XII nml as tested Skin: + pertinent finding (again quarter-sized ulceration with active serosanguineous drainage inner aspect of the right lower extremity above the ankle.) Laboratory Results Last 24 Hours Test 10/04/16 11:21 10/04/16 21:00 10/04/16 23:06 10/05/16 05:50 Bedside Glucose 77 mg/dl Magnesium Level 2.0 mg/dl Urine Random Magnesium 7.5 mg/dl White Blood Count 1.84 K/uL Red Blood Count 2.69 M/uL Hemoglobin 8.4 g/dL Hematocrit 25.1 % Mean Corpuscular Volume 93.3 fL Mean Corpuscular Hemoglobin 31.2 pg Mean Corpuscular Hemoglobin Concent 33.5 g/dl Platelet Count 77 K/uL Mean Platelet Volume 10.5 fL RDW Standard Deviation 64.7 fL RDW Coefficient of Variation 20.3 % Neutrophils % (Manual) 51.3 % Lymphocytes % (Manual) 34.5 % Monocytes % (Manual) 13.3 % Eosinophils % (Manual) 0.9 % Neutrophils # (Manual) 0.94 K/uL Total Absolute Neutrophils 0.94 K/uL Lymphocytes # (Manual) 0.63 K/uL Total Absolute Lymphocytes 0.63 K/uL Monocytes # (Manual) 0.24 K/uL Eosinophils # (Manual) 0.02 K/uL Anisocytosis PRESENT Prothrombin Time 21.1 SECONDS Prothromb Time International Ratio 1.9 Sodium Level 144 mmol/L Potassium Level 3.8 mmol/L Chloride Level 109 mmol/L Carbon Dioxide Level 30 mmol/L Anion Gap 5.0 mmol/L Blood Urea Nitrogen 10 mg/dl Creatinine 0.61 mg/dl Est Creatinine Clear Calc Drug Dose 112.5 ml/min Estimated GFR () 127.8 Estimated GFR (Non- 110.3 BUN/Creatinine Ratio 15.7 Random Glucose 92 mg/dl Calcium Level 7.0 mg/dl Assessment & Plan Right lower extremity cellulitis. Metastatic cervical cancer. Cytopenia secondary to chemotherapeutic effect. Hypoalbuminemia. Isabela is a very pleasant but unfortunate 45-year-old female patient who suffers from metastatic cervical cancer developed right lower extremity pain swelling and redness with resultant ulceration. She attempted to manage this on her own but unfortunately became more painful red and with increased drainage. Appropriately she presented to the emergency room and was admitted to receive broad-spectrum antibiotics. She is presently receiving vancomycin. Blood cultures are pending at the time of this dictation. I do not believe wound cultures were obtained. Her pancytopenia is attributable to current chemotherapy last administered about one week prior. She is due to resume chemotherapy in about one week. Because of ongoing myelosuppression dose reduction has been necessary. Other issues particularly nutritional have been a struggle with trying to maintain her albumin level to reduce the ongoing lower extremity swelling. She continues Coumadin for DVT. Isabela and her family members understand the goal of salvage chemotherapy is life extension while attempting to maintain quality. I engaged in discussions with Isabela and her family regarding palliative care and Isbaela herself is unwilling to give up the fight. She is borderline neutropenic however will hold off on administering granulocyte colony stability growth factor at this point. We'll make arrangements for outpatient follow-up when she is ready for discharge. Thank you very much for assisting us in the care of this very pleasant patient.
[2016-10-05] MEDS: MoRPHine SULFATE 4 MG/ML 1 ML CARP\\VIAL IV PRN ×2 (10:00→14:28)
--- NOTE | 2016-10-05 10:36 | ECHOCARDIOGRAM REPORT ---
*NOTICE TO RECEIVING [employer] AGENCY This information is strictly Confidential and protected under [place] law. [place] law prohibits you from making any further disclosure of this information unless further disclosure is expressly permitted by the written consent of the person to whom it pertains or is authorized by law. A general authorization for the release of medical or other information is not sufficient for this purpose. Hospital accepts no responsibility if the information is made available to any other person, INCLUDING THE PATIENT. Interpretation Summary * Name: MEERA NÚÑEZ Study Date: 10/05/2016 09:21 AM BP: 111/73 mmHg * Patient Location: 4E\S\E417\S\1 HR: 114 * : 1970 (M/d/yyyy) Gender: Female Height: 61 in * Age: 45 yrs Ethnicity: CA Weight: 175 lb * Ordering Physician: Ludwig Briones * Referring Physician: Self, Referred * Performed By: Mel Mercado RCS * * Reason For Study: CONCERN FOR PERICARDIAL EFFUSION / STAGE 4 CERVICAL CANCER * BSA: 1.8 m2 * -- Conclusions -- * The left ventricle is normal in size. * Left ventricular systolic function is normal. * There is mild mitral regurgitation. * Trace pericardial effusion Procedure Details * A complete two-dimensional transthoracic echocardiogram was performed (2D, M-mode, Doppler and color flow Doppler). Left Ventricle * The left ventricle is normal in size. * There is normal left ventricular wall thickness. * Left ventricular systolic function is normal. Right Ventricle * The right ventricle is normal in size and function. Atria * The left atrial size is normal. * Right atrial size is normal. * The thickening of interatrial septum suggests lipomatous hypertrophy. Mitral Valve * The mitral valve anatomy is normal. * There is mild mitral regurgitation. * The mitral regurgitant jet is posteriorly directed, which is consistent with anterior leaflet pathology. Tricuspid Valve * The tricuspid valve is not well visualized, but is grossly normal. * Significant tricuspid regurgitation is absent. Aortic Valve * The aortic valve is normal in structure and function. * No hemodynamically significant valvular aortic stenosis. * There is no significant aortic regurgitation. Great Vessels * The aortic root is normal size. Pericardium/Pleural * Trace pericardial effusion MMode 2D Measurements and Calculations IVSd 0.92 cm IVSs 1.1 cm LVIDd 3.4 cm LVIDs 2.9 cm LVPWd 0.93 cm LVPWs 1.1 cm IVS/LVPW 0.99 FS 15.1 % EDV(Teich) 46.6 ml ESV(Teich) 31.2 ml EF(Teich) 32.9 % EDV(cubed) 38.4 ml ESV(cubed) 23.5 ml EF(cubed) 38.8 % % IVS thick 17.9 % % LVPW thick 18.5 % LV mass(C)d 87.3 grams LV mass(C)dI 48.9 grams/m\S\2 LV mass(C)s 88.3 grams LV mass(C)sI 49.5 grams/m\S\2 SV(Teich) 15.3 ml SI(Teich) 8.6 ml/m\S\2 SV(cubed) 14.9 ml SI(cubed) 8.4 ml/m\S\2 Ao root diam 2.5 cm Ao root area 4.7 cm\S\2 LA dimension 3.8 cm LA/Ao 1.5 LVOT diam 2.0 cm LVOT area 3.1 cm\S\2 LVAd ap4 24.2 cm\S\2 LVLd ap4 7.0 cm EDV(MOD-sp4) 70.5 ml EDV(sp4-el) 70.4 ml LVAs ap4 16.6 cm\S\2 LVLs ap4 5.6 cm ESV(MOD-sp4) 41.3 ml ESV(sp4-el) 41.8 ml EF(MOD-sp4) 41.5 % EF(sp4-el) 40.7 % LVAd ap2 25.7 cm\S\2 LVLd ap2 7.0 cm EDV(MOD-sp2) 77.7 ml EDV(sp2-el) 80.8 ml LVAs ap2 17.7 cm\S\2 LVLs ap2 6.2 cm ESV(MOD-sp2) 41.7 ml ESV(sp2-el) 42.8 ml EF(MOD-sp2) 46.3 % EF(sp2-el) 47.0 % LVLd %diff -1.25 % EDV(MOD-bp) 74.1 ml LVLs %diff 9.3 % ESV(MOD-bp) 43.4 ml EF(MOD-bp) 41.4 % SV(MOD-sp4) 29.3 ml SI(MOD-sp4) 16.4 ml/m\S\2 SV(MOD-sp2) 36.0 ml SI(MOD-sp2) 20.1 ml/m\S\2 SV(MOD-bp) 30.7 ml SI(MOD-bp) 17.2 ml/m\S\2 SV(sp4-el) 28.7 ml SI(sp4-el) 16.1 ml/m\S\2 SV(sp2-el) 38.0 ml SI(sp2-el) 21.3 ml/m\S\2 Doppler Measurements and Calculations MV E max neha 160.2 cm/sec MV P1/2t max neha 164.8 cm/sec MV P1/2t 50.9 msec MVA(P1/2t) 4.3 cm\S\2 MV dec slope 948.3 cm/sec\S\2 MV dec time 0.12 sec Ao V2 max 133.5 cm/sec Ao max PG 7.1 mmHg Ao max PG (full) 3.8 mmHg MARIANA(V,A) 2.1 cm\S\2 MARIANA(V,D) 2.1 cm\S\2 LV V1 max PG 3.4 mmHg LV V1 max 91.7 cm/sec MR max neha 521.9 cm/sec MR max PG 109.0 mmHg
--- NOTE | 2016-10-05 10:56 | ECHOCARDIOGRAM REPORT ---
*NOTICE TO RECEIVING [employer] AGENCY This information is strictly Confidential and protected under [place] law. [place] law prohibits you from making any further disclosure of this information unless further disclosure is expressly permitted by the written consent of the person to whom it pertains or is authorized by law. A general authorization for the release of medical or other information is not sufficient for this purpose. Hospital accepts no responsibility if the information is made available to any other person, INCLUDING THE PATIENT. Interpretation Summary * Name: MEERA NÚÑEZ Study Date: 10/05/2016 09:21 AM BP: 111/73 mmHg * Patient Location: 4E\S\E417\S\1 HR: 114 * : 1970 (M/d/yyyy) Gender: Female Height: 61 in * Age: 45 yrs Ethnicity: CA Weight: 175 lb * Ordering Physician: Ludwig Briones * Referring Physician: Self, Referred * Performed By: Mel Mercado RCS * * Reason For Study: CONCERN FOR PERICARDIAL EFFUSION / STAGE 4 CERVICAL CANCER * BSA: 1.8 m2 * -- Conclusions -- * The left ventricle is normal in size. * Left ventricular systolic function is normal. * There is mild mitral regurgitation. * Trace pericardial effusion Procedure Details * A complete two-dimensional transthoracic echocardiogram was performed (2D, M-mode, Doppler and color flow Doppler). Left Ventricle * The left ventricle is normal in size. * There is normal left ventricular wall thickness. * Left ventricular systolic function is normal. * Ejection Fraction = 50-55%. Right Ventricle * The right ventricle is normal in size and function. Atria * The left atrial size is normal. * Right atrial size is normal. * The thickening of interatrial septum suggests lipomatous hypertrophy. Mitral Valve * The mitral valve anatomy is normal. * There is mild mitral regurgitation. * The mitral regurgitant jet is posteriorly directed, which is consistent with anterior leaflet pathology. Tricuspid Valve * The tricuspid valve is not well visualized, but is grossly normal. * Significant tricuspid regurgitation is absent. Aortic Valve * The aortic valve is normal in structure and function. * No hemodynamically significant valvular aortic stenosis. * There is no significant aortic regurgitation. Great Vessels * The aortic root is normal size. Pericardium/Pleural * Trace pericardial effusion MMode 2D Measurements and Calculations IVSd 0.92 cm IVSs 1.1 cm LVIDd 3.4 cm LVIDs 2.9 cm LVPWd 0.93 cm LVPWs 1.1 cm IVS/LVPW 0.99 FS 15.1 % EDV(Teich) 46.6 ml ESV(Teich) 31.2 ml EF(Teich) 32.9 % EDV(cubed) 38.4 ml ESV(cubed) 23.5 ml EF(cubed) 38.8 % % IVS thick 17.9 % % LVPW thick 18.5 % LV mass(C)d 87.3 grams LV mass(C)dI 48.9 grams/m\S\2 LV mass(C)s 88.3 grams LV mass(C)sI 49.5 grams/m\S\2 SV(Teich) 15.3 ml SI(Teich) 8.6 ml/m\S\2 SV(cubed) 14.9 ml SI(cubed) 8.4 ml/m\S\2 Ao root diam 2.5 cm Ao root area 4.7 cm\S\2 LA dimension 3.8 cm LA/Ao 1.5 LVOT diam 2.0 cm LVOT area 3.1 cm\S\2 LVAd ap4 24.2 cm\S\2 LVLd ap4 7.0 cm EDV(MOD-sp4) 70.5 ml EDV(sp4-el) 70.4 ml LVAs ap4 16.6 cm\S\2 LVLs ap4 5.6 cm ESV(MOD-sp4) 41.3 ml ESV(sp4-el) 41.8 ml EF(MOD-sp4) 41.5 % EF(sp4-el) 40.7 % LVAd ap2 25.7 cm\S\2 LVLd ap2 7.0 cm EDV(MOD-sp2) 77.7 ml EDV(sp2-el) 80.8 ml LVAs ap2 17.7 cm\S\2 LVLs ap2 6.2 cm ESV(MOD-sp2) 41.7 ml ESV(sp2-el) 42.8 ml EF(MOD-sp2) 46.3 % EF(sp2-el) 47.0 % LVLd %diff -1.25 % EDV(MOD-bp) 74.1 ml LVLs %diff 9.3 % ESV(MOD-bp) 43.4 ml EF(MOD-bp) 41.4 % SV(MOD-sp4) 29.3 ml SI(MOD-sp4) 16.4 ml/m\S\2 SV(MOD-sp2) 36.0 ml SI(MOD-sp2) 20.1 ml/m\S\2 SV(MOD-bp) 30.7 ml SI(MOD-bp) 17.2 ml/m\S\2 SV(sp4-el) 28.7 ml SI(sp4-el) 16.1 ml/m\S\2 SV(sp2-el) 38.0 ml SI(sp2-el) 21.3 ml/m\S\2 Doppler Measurements and Calculations MV E max neha 160.2 cm/sec MV P1/2t max neha 164.8 cm/sec MV P1/2t 50.9 msec MVA(P1/2t) 4.3 cm\S\2 MV dec slope 948.3 cm/sec\S\2 MV dec time 0.12 sec Ao V2 max 133.5 cm/sec Ao max PG 7.1 mmHg Ao max PG (full) 3.8 mmHg MARIANA(V,A) 2.1 cm\S\2 MARIANA(V,D) 2.1 cm\S\2 LV V1 max PG 3.4 mmHg LV V1 max 91.7 cm/sec MR max neha 521.9 cm/sec MR max PG 109.0 mmHg
[2016-10-05] MEDS ORDERED: VANCOMYCIN TROUGH SCH (11:30)
--- NOTE | 2016-10-05 15:40 | Pharmacy Progress Note ---
Pharmacy Abx Dose Progress Nt Date of Service Oct 05, 2016. Pharmacy Dosing Scope The patient is currently receiving the following antimicrobial agents per Pharmacy consult: * Vancomycin 1150 mg IV every 10 hours Objective Height (Feet): 5 Height (Inches): 1.00 Weight (Kilograms): 79.700 Vital Signs (Past 12Hrs) Vital Signs Past 12 Hours Date Time Temp Pulse Resp B/P (MAP) Pulse Ox O2 Delivery O2 Flow Rate FiO2 10/05/16 11:59 36.6 112 18 125/87 (100) 95 Room Air 10/05/16 08:00 Room Air 10/05/16 07:32 36.7 112 18 111/73 (86) 94 Room Air 10/05/16 04:27 36.8 96 20 122/79 (93) 94 Room Air Lab Results (24Hrs) Laboratory Tests (24 Hours) Test 10/05/16 05:50 White Blood Count 1.84 K/uL (4.8-10.8) L Red Blood Count 2.69 M/uL (4.2-5.4) L Hemoglobin 8.4 g/dL (12.0-16.0) L Hematocrit 25.1 % (37-47) L Mean Corpuscular Volume 93.3 fL (80-100) Mean Corpuscular Hemoglobin 31.2 pg (25-34) Mean Corpuscular Hemoglobin Concent 33.5 g/dl (32-36) Platelet Count 77 K/uL (130-400) L Mean Platelet Volume 10.5 fL (7.4-10.4) H Micro Results Date/Time Source Procedure Growth Status 10/03/16 19:32 Blood Blood Culture - Preliminary NO GROWTH TO DATE. Resulted 10/03/16 18:01 Blood Blood Culture - Preliminary NO GROWTH TO DATE. Resulted Risk Factors for Resistance * Neutropenic * Immunocompromised (chronic steroid therapy, chemotherapy, immunomodulators) Assessment & Plan Assessment 45-year-old female with a history of metastatic cervical cancer and chronic edema in her legs presented to emergency department with erythema, tenderness and warmth to her right lower extremity consistent with cellulitis. She reported LE edema has been present "for a while" but getting worse. Wound reported to be improving Patient currently receiving Vancomycin 1150mg IV every 10 hours Day # 3 of antimicrobial therapy Renal function appears stable, patient with high trough around noon dose today. Level drawn from port, and floor reports that blood was drawn prior to start of infusion. Patient did receive the noon dose. I will now put IV Vancomycin on hold and repeat Vancomycin level with AM labs tomorrow. Plan Vancomycin IV * Trough level of 40.2 mcg/mL is supratherapeutic (will repeat in the AM to verify). * HOLD dose of Vancomycin 1150 mg IV every 10 hours * Goal trough level for cellulitis in immunocompromised patient: 15 to 20 mcg/mL * Random level ordered for: 10/06/2016 with AM labs Pharmacy will continue to follow and will adjust dose/frequency as necessary. Thank you.
[2016-10-05] MEDS: WARFARIN SOD 1 MG TAB PO SCH (16:19)
[2016-10-06] VITALS (8 sets, daily range): BP systolic 105–122; BP diastolic 71–81; PULSE 79–117; TEMP 36.5–37; O2SAT 93–99
[2016-10-06] MEDS: CHECK FENTANYL PATCH PLACEMENT SCH ×4 (00:30→16:00)
[2016-10-06] MEDS: MoRPHine SULFATE 4 MG/ML 1 ML CARP\\VIAL IV PRN ×4 (00:35→20:27)
--- NOTE | 2016-10-06 05:45 | Progress Note ---
Subjective Date of Service: late entry for visit on Oct 05, 2016. Subjective Pt evaluation today including: conversation w/ patient, conversation w/ family (aunt at bedside), physical exam, chart review, lab review, review of studies ( echo), review of inpatient medication list Pain: back, right leg - chronic PO Intake: poor Voiding: no voiding problems patient reluctant to increase her fentanyl patch mainly because of her mother apparently her mother with whom she lives voices disapproval of increases in pain meds patient states "my mother thinks I need to move around more - she doesn't understand how much pain I have" patient believes the right leg ulcer and infection looks better to her Problem List Medical Problems: (1) Anemia Status: Acute (2) Anemia Status: Acute (3) Cellulitis of right leg Status: Acute (4) Leukopenia Status: Acute Review of Systems Constitutional: No fever Respiratory: No shortness of breath Cardiac: No chest pain Abdomen: No pain Objective Vital Signs Date Time Temp Pulse Resp B/P (MAP) Pulse Ox O2 Delivery O2 Flow Rate FiO2 10/06/16 04:08 36.8 109 18 108/73 (85) 95 Room Air 10/05/16 23:44 36.9 119 18 110/72 (85) 96 Room Air 10/05/16 19:17 36.8 118 18 120/82 (95) 98 Room Air 10/05/16 16:00 Room Air 10/05/16 15:54 36.5 113 18 123/85 (98) 99 Room Air 10/05/16 11:59 36.6 112 18 125/87 (100) 95 Room Air 10/05/16 08:00 Room Air 10/05/16 07:32 36.7 112 18 111/73 (86) 94 Room Air Physical Exam General Appearance: no apparent distress, + cachetic, + pertinent finding (pale ) ENT: pharynx normal (no thrush or mucositis ) Neck: no JVD Respiratory/Chest: lungs clear, no respiratory distress, no accessory muscle use, + decreased breath sounds (bases) Cardiovascular: no gallop, + tachycardia Abdomen: normal bowel sounds, non tender, soft, no organomegaly, + pertinent finding (probable ascites) Extremities: + swelling (severe, 4++ - from the feet up to the hips) Neurologic/Psychiatric: alert, oriented x 3 Skin: + pertinent finding (right mid alves cellulitis - improved; ulceration also improved in appearance; minimal drainage ) Laboratory Results Last 24 Hours Test 10/05/16 05:50 10/05/16 11:45 10/06/16 05:30 White Blood Count 1.84 K/uL Red Blood Count 2.69 M/uL Hemoglobin 8.4 g/dL Hematocrit 25.1 % Mean Corpuscular Volume 93.3 fL Mean Corpuscular Hemoglobin 31.2 pg Mean Corpuscular Hemoglobin Concent 33.5 g/dl Platelet Count 77 K/uL Mean Platelet Volume 10.5 fL RDW Standard Deviation 64.7 fL RDW Coefficient of Variation 20.3 % Neutrophils % (Manual) 51.3 % Lymphocytes % (Manual) 34.5 % Monocytes % (Manual) 13.3 % Eosinophils % (Manual) 0.9 % Neutrophils # (Manual) 0.94 K/uL Total Absolute Neutrophils 0.94 K/uL Lymphocytes # (Manual) 0.63 K/uL Total Absolute Lymphocytes 0.63 K/uL Monocytes # (Manual) 0.24 K/uL Eosinophils # (Manual) 0.02 K/uL Anisocytosis PRESENT Prothrombin Time 21.1 SECONDS Prothromb Time International Ratio 1.9 Sodium Level 144 mmol/L Potassium Level 3.8 mmol/L Chloride Level 109 mmol/L Carbon Dioxide Level 30 mmol/L Anion Gap 5.0 mmol/L Blood Urea Nitrogen 10 mg/dl Creatinine 0.61 mg/dl Est Creatinine Clear Calc Drug Dose 112.5 ml/min Estimated GFR () 127.8 Estimated GFR (Non- 110.3 BUN/Creatinine Ratio 15.7 Random Glucose 92 mg/dl Calcium Level 7.0 mg/dl Vancomycin Level Trough 40.2 mcg/ml Assessment and Plan 45yo female: 1. RLE cellulitis with central ulcer w/ eschar - continue vancomycin. Appreciate wound care consultation. Overall appears modestly improved today. 2. stage 4 cervical cancer - continues with chemotherapy for salvage. Appreciate Dr. Kelly's consultation. No additional recommendations at this time. 3. pancytopenia - 2nd to chemo +/- liver mets? Repeat CBC today stable/acceptable. 4. neutropenia - moderate - neutropenic precautions. 2nd to chemo, liver disease. 5. severe hypomagnesemia - suspect due to poor oral intake. resolved. 6. severe hypoalbuminemia with resulting severe b/l edema - doubt diuretics would be helpful. 7. severe protein calorie malnutrition - boost BID/TID. 8. abnormal alk phos - either 2nd to bone mets or liver mets. 9. tachycardia - unsure of cause. EKG with low voltage. Echo with preserved EF and only trace pericardial effusion. Could she have PEs?? 10. h/o DVT - has IVC filter; previous imaging with clot all the way to the filter. Cont coumadin, repeat INR in am. 11. hypothyroidism - continue synthroid. 12. h/o T2DM - all FSBS have been normal; stopped FSBS checks and novolog sliding scale. 13. hypokalemia - resolved. 14. back pain with right leg pain - has known L3 compression fracture with nerve impingement; this is likely cause of pain. Cont fentanyl patch 100mcg q3d. We discussed increasing to 125mcg q3d. She is reluctant because of her mother (see HPI). I will ultimately leave this up to the patient. progressing slowly Continued [facility] stay due to: inadequate oral pain control, multiple IV medications needed Discharge planning: uncertain
[2016-10-06] MEDS: LEVOTHYROXINE 150 MCG TAB PO SCH (05:57)
[2016-10-06 06:15] LABS: INR 1.5 (0.9-1.1); PROTHROMBIN TIME (PATIENT) 16.7 SECONDS (9.0-12.0)
[2016-10-06 06:19] LABS: HEMATOCRIT 23.4 % (37-47); MEAN CELL VOLUME 94.7 fL (80-100); MEAN CORPUSCULAR HEMOGLOBIN 31.6 pg (25-34); MEAN CORPUSCULAR HGB CONC 33.3 g/dl (32-36); MEAN PLATELET VOLUME 10.2 fL (7.4-10.4); PLATELET COUNT 67 K/uL (130-400); RED BLOOD COUNT 2.47 M/uL (4.2-5.4); WHITE BLOOD COUNT 1.66 K/uL (4.8-10.8)
[2016-10-06 07:49] LABS: ANISOCYTOSIS PRESENT
[2016-10-06 07:52] LABS: BASO ABS # 0.03 K/uL (0-0.2); BASOPHIL % 1.8 %; COMPLETE YES; LYMPH ABS # 0.44 K/uL (1.2-3.4); LYMPHOCYTE % 26.3 %; MYELOCYTE % 2.6 %; NEUTROPHILS % 50.9 %
--- NOTE | 2016-10-06 08:51 | Hematology/Oncology Prog Note ---
Hematology/Onc Progress Note Date of Service Oct 06, 2016. Diagnoses 1. Decubitus ulcer, right lower extremity. 2. Pancytopenia. Chemotherapeutic effect. 3. Metastatic cervical cancer (hepatic and osseous metastases). 4. Hypoalbuminemia Subjective Isabela is a pleasant but unfortunate 45-year-old patient who was admitted to [facility] with increased swelling and pain of her lower extremity. She suffers from a quarter-sized ulceration presently draining serosanguineous material. She continues vancomycin intravenously. Isabela reports no fever problems overnight. Pain control is adequate presently. Peripheral blood counts again reflect pancytopenia specifically neutropenia. Will incorporate Neupogen over the next couple days. Vital Signs Vital Signs Past 12 Hours Date Time Temp Pulse Resp B/P (MAP) Pulse Ox O2 Delivery O2 Flow Rate FiO2 10/06/16 07:45 36.6 111 18 105/72 (83) 94 Room Air 10/06/16 04:08 36.8 109 18 108/73 (85) 95 Room Air 10/06/16 00:15 Room Air 10/05/16 23:44 36.9 119 18 110/72 (85) 96 Room Air Physical Exam Skin without rash, lower extremity ulceration looks a little better continues to drain. HEENT oral mucosa without erythema or ulceration Neck supple Heart. Regular rate and rhythm. Lungs clear to auscultation. Abdomen. Soft nontender nondistended no rigidity or guarding. EXT. 2+ peripheral edema bilaterally. Neuro. grossly intact Assessment & Plan 1. Neutropenia 2. Pancytopenia secondary to chemotherapeutic effect. 3. Infected lower extremity ulcer. 4. Metastatic cervical cancer. 5. Hypoalbuminemia. Isabela was seen and examined at bedside this morning. Engaged in a productive discussion regarding long-term goals. The patient has expressed desire to continue modified chemotherapy once she is medically stable. While her performance status is suboptimal She understands at some point we may need to discontinue chemotherapy if she develops further medical complications and her life quality diminishes. I also briefly touched on her CODE STATUS and requested that she consider DNR/ DNI as she fully understands the terminal nature of her disease. As for pain management, Isabela is clearly experiencing tolerance to her opioids and if dose acceleration is indicated I am requesting that Isabela and she alone make that decision. Perhaps we should incorporate Neupogen 300 g subcutaneous daily over the next 2 days. We will continue to follow her periodically throughout her hospital stay. Thank you for assisting us in the care of this very pleasant young lady.
[2016-10-06] MEDS ORDERED: FENTANYL PATCH REMOVE & WASTE SCH ×2 (08:59→12:14)
[2016-10-06] MEDS ORDERED: FILGRASTIM 300 MCG/ML 1 ML VIAL SQ ONE (10:00)
[2016-10-06] MEDS: FENTANYL 100 MCG/HR TDSY TD SCH (12:27)
[2016-10-06] MEDS: DRONABINOL 2.5 MG CAP PO SCH ×2 (12:27→17:35)
[2016-10-06] MEDS: FENTANYL 25 MCG/HR TDSY TD SCH (12:28)
[2016-10-06] MEDS ORDERED: WARFARIN SOD 2 MG TAB PO ONE (16:00)
[2016-10-07] VITALS: O2SAT 93
[2016-10-07] MEDS: CHECK FENTANYL PATCH PLACEMENT SCH ×8 (00:09→23:11)
[2016-10-07] MEDS: MoRPHine SULFATE 4 MG/ML 1 ML CARP\\VIAL IV PRN ×6 (00:33→23:11)
[2016-10-07] MEDS: LEVOTHYROXINE 150 MCG TAB PO SCH (06:11)
--- NOTE | 2016-10-07 06:50 | Progress Note ---
Subjective Date of Service: late entry for visit Oct 06, 2016. Subjective Pt evaluation today including: conversation w/ patient, physical exam, chart review, lab review Pain: back, right leg PO Intake: fair at best Voiding: no voiding problems patient WOULD like to increase her pain meds to 125mcg every 3 days she denies any new issues she thinks right leg looks better Problem List Medical Problems: (1) Anemia Status: Acute (2) Anemia Status: Acute (3) Cellulitis of right leg Status: Acute (4) Leukopenia Status: Acute Review of Systems Constitutional: + fatigue, No fever, No chills Respiratory: No dyspnea at rest Cardiac: No chest pain Abdomen: No pain, No diarrhea Objective Vital Signs Date Time Temp Pulse Resp B/P (MAP) Pulse Ox O2 Delivery O2 Flow Rate FiO2 10/07/16 00:00 93 Room Air 10/06/16 23:49 36.6 79 20 120/71 (87) 96 Room Air 10/06/16 23:48 37.0 117 22 116/73 (87) 93 Room Air 10/06/16 20:00 93 Room Air 10/06/16 19:37 36.9 116 20 122/78 (93) 93 Room Air 10/06/16 16:20 Room Air 10/06/16 15:56 36.6 113 18 112/75 (87) 97 Room Air 10/06/16 11:49 36.5 107 18 118/81 (93) 99 Room Air 10/06/16 10:51 Room Air 10/06/16 07:45 36.6 111 18 105/72 (83) 94 Room Air Physical Exam General Appearance: no apparent distress, + cachetic ENT: pharynx normal (no thrush) Neck: no JVD Respiratory/Chest: lungs clear, no respiratory distress, no accessory muscle use, + decreased breath sounds (mildly decreased bases) Cardiovascular: no gallop, no murmur, + tachycardia Abdomen: normal bowel sounds, non tender, soft, no organomegaly, + distended ( probable ascites) Extremities: + swelling (4++ b/l to the hips) Neurologic/Psychiatric: alert, oriented x 3 Skin: + pallor, + pertinent finding (right leg, mid alves - ulceration present, no change; cellulitis component surrounding the ulcer is improved ) Laboratory Results Last 24 Hours Test 10/06/16 09:16 10/07/16 05:40 Random Vancomycin Level 34.9 mcg/ml Assessment and Plan 45yo female: 1. RLE cellulitis with central ulcer w/ eschar - continue vancomycin. Improving. Anticipate switching to PO abx soon (probably keflex with doxy). Appreciate wound care consultation. 2. stage 4 cervical cancer - continues with chemotherapy for salvage. Appreciate Dr. Kelly's consultation. No additional recommendations at this time. Palliative care/hospice has been discussed; patient not ready for such. 3. pancytopenia - 2nd to chemo +/- liver mets? Also with h/o folic acid def. Repeat CBC today stable/acceptable. Repeat the cbc again in am along with folate level. 4. neutropenia - moderate - neutropenic precautions. 2nd to chemo, liver disease. 5. severe hypomagnesemia - suspect due to poor oral intake. resolved. repeat in AM to ensure ongoing stability. 6. severe hypoalbuminemia with resulting severe b/l edema - doubt diuretics would be helpful. 7. severe protein calorie malnutrition - boost BID/TID. 8. abnormal alk phos - either 2nd to bone mets or liver mets. 9. tachycardia - unsure of cause. EKG with low voltage. Echo with preserved EF and only trace pericardial effusion. Could she have PEs?? Follow. 10. h/o DVT - has IVC filter; previous imaging with clot all the way to the filter. Give 2mg today due to subtherapeutic level. 11. hypothyroidism - continue synthroid. Recent level elevated; dose increased. Repeat TSH 6 weeks. 12. h/o T2DM - all FSBS have been normal; stopped FSBS checks and novolog sliding scale. 13. hypokalemia - resolved. 14. back pain with right leg pain - has known L3 compression fracture with nerve impingement; this is likely cause of pain. Increase fentanyl patch to 125mcg q3d. hopefully home this weekend Continued [facility] stay due to: inadequate oral pain control, multiple IV medications needed Discharge planning: home with home health
[2016-10-07 07:27] VITALS: BP 105/61; PULSE 111; TEMP 36.7; O2SAT 94
[2016-10-07 07:42] LABS: HEMATOCRIT 24.4 % (37-47); MEAN CELL VOLUME 95.7 fL (80-100); MEAN CORPUSCULAR HEMOGLOBIN 30.2 pg (25-34); MEAN CORPUSCULAR HGB CONC 31.6 g/dl (32-36); RED BLOOD COUNT 2.55 M/uL (4.2-5.4); WHITE BLOOD COUNT 3.81 K/uL (4.8-10.8)
[2016-10-07] MEDS: DRONABINOL 2.5 MG CAP PO SCH ×2 (07:56→16:37)
[2016-10-07 08:01] LABS: MEAN PLATELET VOLUME 10.2 fL (7.4-10.4); PLATELET COUNT 89 K/uL (130-400)
[2016-10-07 08:02] LABS: INR 1.5 (0.9-1.1); PROTHROMBIN TIME (PATIENT) 16.7 SECONDS (9.0-12.0)
[2016-10-07 08:14] LABS: BUN/CREATININE RATIO 13.7 (10-20); CALCIUM 7.6 mg/dl (8.5-10.1); CREATININE 0.78 mg/dl (0.60-1.20); MAGNESIUM 1.3 mg/dl (1.8-2.4); POTASSIUM 3.9 mmol/L (3.5-5.1)
[2016-10-07] MEDS: MAGNESIUM SULFATE 1GM / D5W 1 GM in PREMIXED IN D5W 100 ML IV SCH ×3 (09:10→14:00)
[2016-10-07] MEDS ORDERED: ENOXAPARIN 1 MG/KG SQ SCH (10:15)
--- NOTE | 2016-10-07 11:53 | DIAGNOSTIC IMAGING REPORT ---
ULTRASOUND VENOUS DOPPLER LWR EXT BILA CLINICAL HISTORY: Leg edema. History of right leg DVT. COMPARISON STUDY: 07/05/2016 , April 04, 2016 FINDINGS: The study is significantly limited from a technical standpoint due to the patient's extensive lower extremity edema. The mid and distal superficial femoral veins were not visualized bilaterally. There is limited visualization of the calf veins. On the left, no intraluminal thrombus was visualized. On the right there is incomplete compressibility the right common femoral vein. IMPRESSION: 1. Significantly limited study from a technical standpoint 2. No evidence of left lower extremity DVT 3. Incompletely compressible right common femoral vein, consistent with DVT. The diameter of the thrombus appears smaller than on the prior March 2016 study Electronically signed by: Vega Haley M.D. 10/07/2016 11:52 AM Dictated Date/Time: 10/07/2016 11:47 AM
[2016-10-07] MEDS: ENOXAPARIN 80 MG/0.8 ML SYR SQ SCH ×2 (12:06→22:38)
[2016-10-07 15:34] VITALS: BP 114/76; PULSE 114; TEMP 36.8; O2SAT 97
[2016-10-07] MEDS ORDERED: WARFARIN SOD 1 MG TAB PO SCH (16:00)
[2016-10-07 19:46] VITALS: BP 127/83; PULSE 123; TEMP 36.8; O2SAT 98
[2016-10-07 23:27] VITALS: BP 112/73; PULSE 123; TEMP 37.1; O2SAT 96
[2016-10-08] VITALS (14 sets, daily range): BP systolic 100–133; BP diastolic 66–89; PULSE 96–122; TEMP 36.4–37.5; O2SAT 92–98
[2016-10-08] MEDS: MoRPHine SULFATE 4 MG/ML 1 ML CARP\\VIAL IV PRN ×4 (03:12→23:42)
[2016-10-08] MEDS: LEVOTHYROXINE 150 MCG TAB PO SCH (06:04)
[2016-10-08 07:12] LABS: CREATININE 0.72 mg/dl (0.60-1.20)
--- NOTE | 2016-10-08 07:59 | Progress Note ---
Subjective Date of Service: late entry for visit Oct 07, 2016. Subjective Pt evaluation today including: conversation w/ patient, physical exam, chart review, lab review, review of studies (dopplers of legs), review of inpatient medication list Pain: no change in back/leg pain PO Intake: fair Voiding: no voiding problems c/o worsening edema of both legs denies dyspnea at rest we had a heartfelt conversation about her current health status; she commented "I know I am going to " Problem List Medical Problems: (1) Anemia Status: Acute (2) Anemia Status: Acute (3) Cellulitis of right leg Status: Acute (4) Leukopenia Status: Acute Review of Systems Constitutional: No fever, No chills Respiratory: No cough, No sputum, No wheezing, No dyspnea at rest Cardiac: + edema Abdomen: + pain (bloating from fluid), No nausea, No vomiting, No diarrhea Objective Vital Signs Date Time Temp Pulse Resp B/P (MAP) Pulse Ox O2 Delivery O2 Flow Rate FiO2 10/08/16 03:38 37.5 122 22 110/73 (85) 92 Room Air 10/08/16 00:43 Room Air 10/07/16 23:27 37.1 123 22 112/73 (86) 96 Room Air 10/07/16 21:30 Room Air 10/07/16 19:46 36.8 123 20 127/83 (98) 98 Room Air 10/07/16 15:34 36.8 114 18 114/76 (89) 97 Room Air 10/07/16 08:45 Room Air Physical Exam General Appearance: no apparent distress, + cachetic ENT: pharynx normal Neck: no JVD Respiratory/Chest: no respiratory distress, no accessory muscle use, + decreased breath sounds (bases) Cardiovascular: no gallop, no murmur, + tachycardia Abdomen: normal bowel sounds, non tender, no organomegaly, + distended Extremities: + swelling (massive edema of both legs from feet to the hips - worse than previous) Neurologic/Psychiatric: alert, + depressed affect Skin: + pertinent finding (ulceration right alves improved; cellulitis surrounding this area also improved; there is new blotchy warmth & erythema in a skip pattern over both thighs today - does not look typical for cellulitis) Laboratory Results Last 24 Hours Test 10/08/16 05:54 10/08/16 07:15 Creatinine 0.72 mg/dl Est Creatinine Clear Calc Drug Dose 95.5 ml/min Estimated GFR () 118.0 Estimated GFR (Non- 101.9 Random Vancomycin Level 15.9 mcg/ml Assessment and Plan 45yo female: 1. RLE cellulitis with central ulcer w/ eschar - continue vancomycin. The original area of cellulitis is markedly improved but now she has new areas of patchy erythema in the thighs. I am unsure if the new areas are just simply due to the massive edema or actual atypical cellulitis. Re-eval in am. Appreciate wound care consultation. 2. stage 4 cervical cancer - continues with chemotherapy for salvage. Appreciate Dr. Kelly's consultation. No additional recommendations at this time. Palliative care/hospice has been discussed; patient not ready for such. 3. pancytopenia - 2nd to chemo +/- liver mets? Repeat CBC today stable/acceptable but given the tachycardia consider PRBCs soon. Folate was normal. 4. neutropenia - moderate - neutropenic precautions. 2nd to chemo, liver disease. 5. severe hypomagnesemia - suspect due to poor oral intake and/or renal wasting. Low again today - replete; repeat level am. 6. severe hypoalbuminemia and IVC thrombosis with resulting severe b/l edema - doubt diuretics would be helpful. 7. severe protein calorie malnutrition - boost BID/TID. 8. abnormal alk phos - either 2nd to bone mets or liver mets. 9. tachycardia - unsure of cause. EKG with low voltage. Echo with preserved EF and only trace pericardial effusion. Could she have PEs?? Very possible. Follow. 10. h/o DVT RLE - given the worsening edema I repeated dopplers today. Suboptimal study but no new clots. I think she should transition to lovenox 1mg/kg q12h in robert of coumadin but will need to d/w Dr. Kelly. 11. hypothyroidism - continue synthroid. Recent level elevated; dose increased. Repeat TSH 6 weeks. 12. h/o T2DM - all FSBS have been normal; stopped FSBS checks and novolog sliding scale. 13. hypokalemia - resolved. 14. back pain with right leg pain - has known L3 compression fracture with nerve impingement; this is likely cause of pain. Increased fentanyl patch to 125mcg q3d on 10/06/16. 15. depression - could benefit from antidepressant; will d/w patient. Continued [facility] stay due to: inadequate oral pain control, multiple IV medications needed Discharge planning: home with home health
[2016-10-08] MEDS: CHECK FENTANYL PATCH PLACEMENT SCH ×6 (08:00→23:47)
[2016-10-08] MEDS: ENOXAPARIN 80 MG/0.8 ML SYR SQ SCH ×2 (09:00→20:07)
[2016-10-08] MEDS: DRONABINOL 2.5 MG CAP PO SCH ×2 (09:05→18:36)
[2016-10-08 10:49] LABS: HEMATOCRIT 24.9 % (37-47); MEAN CELL VOLUME 96.1 fL (80-100); MEAN CORPUSCULAR HEMOGLOBIN 31.3 pg (25-34); MEAN CORPUSCULAR HGB CONC 32.5 g/dl (32-36); MEAN PLATELET VOLUME 9.8 fL (7.4-10.4); PLATELET COUNT 101 K/uL (130-400); RED BLOOD COUNT 2.59 M/uL (4.2-5.4); WHITE BLOOD COUNT 4.63 K/uL (4.8-10.8)
[2016-10-08 10:59] LABS: INR 1.8 (0.9-1.1); PROTHROMBIN TIME (PATIENT) 20.2 SECONDS (9.0-12.0)
[2016-10-08] MEDS ORDERED: VANCOMYCIN INJ 1,000 MG in SODIUM CHLORIDE 0.9% 250ML 250 ML IV SCH (11:00)
[2016-10-08] MEDS: MAGNESIUM SULFATE 1GM / D5W 1 GM in PREMIXED IN D5W 100 ML IV SCH ×2 (11:15→11:59)
--- NOTE | 2016-10-08 11:20 | Pharmacy Progress Note ---
Pharmacy Abx Dose Progress Nt Date of Service Oct 08, 2016. Pharmacy Dosing Scope The patient is ordered IV Vancomycin (currently on hold) per Pharmacy consult. Objective Height (Feet): 5 Height (Inches): 1.00 Weight (Kilograms): 80.000 Vital Signs (Past 12Hrs) Vital Signs Past 12 Hours Date Time Temp Pulse Resp B/P (MAP) Pulse Ox O2 Delivery O2 Flow Rate FiO2 10/08/16 08:05 36.7 104 20 100/66 (77) 92 10/08/16 03:38 37.5 122 22 110/73 (85) 92 Room Air 10/08/16 00:43 Room Air 10/07/16 23:27 37.1 123 22 112/73 (86) 96 Room Air Lab Results (24Hrs) Item Value Date Time Creatinine 0.72 mg/dl 10/08/16 0554 Est Creatinine Clear Calc Drug Dose 95.5 ml/min 10/08/16 0554 Item Value Date Time Random Vancomycin Level 15.9 mcg/ml 10/08/16 0554 Random Vancomycin Level 24.0 mcg/ml 10/07/16 0540 Random Vancomycin Level 34.9 mcg/ml 10/06/16 0916 Vancomycin Level Trough 40.2 mcg/ml 10/05/16 1145 Micro Results Date/Time Source Procedure Growth Status 10/03/16 19:32 Blood Blood Culture - Preliminary NO GROWTH TO DATE. Resulted 10/03/16 18:01 Blood Blood Culture - Preliminary NO GROWTH TO DATE. Resulted Risk Factors for Resistance * Neutropenic * Immunocompromised (chronic steroid therapy, chemotherapy, immunomodulators) * Current hospitalization > 5 days Assessment & Plan Assessment * 45 yo F w/ hx of metastatic cervical cancer & chronic LE edema admitted for worsening LE wounds/cellulitis * Day #6/10 of antimicrobial therapy * Initially rec'd Vancomycin 1900mg IV load (25mg/kg) followed by 1150mg IV q10h (15mg/kg) * Trough level drawn on day #3 was elevated at 40.2mcg/mL & tx was placed on hold * Random levels drawn over the last few days remained elevated & Vanco remained on hold * Level of 15.9mcg/mL today has fallen into therapeutic range & tx can resume * Patient half-life assessed to be around 24hr or slightly higher Plan Vancomycin IV * Re-start tx with: Vancomycin 1gm IV q 24h (12.5mg/kg) * Goal trough level for cellulitis in immunocompromised patient: 15 to 20 mcg/mL * Trough level ordered for: 10/10/16 1100 dose * Less than traditional dose was selected due to drug accumulation in the pt Pharmacy will continue to follow and will adjust dose/frequency as necessary. Thank you.
[2016-10-08 11:26] LABS: ANISOCYTOSIS PRESENT; COMPLETE YES; DOHLE BODIES 3+; LYMPH ABS # 0.44 K/uL (1.2-3.4); LYMPHOCYTE % 9.6 %; META ABS # 0.12 K/uL (0-0); METAMYELOCYTE % 2.6 %; MYELOCYTE % 1.7 %; NEUTROPHILS % 83.5 %
[2016-10-08] MEDS ORDERED: DULOXETINE HCL 20 MG CAP PO ONE (13:18)
[2016-10-08] MEDS ORDERED: FUROSEMIDE INJ 20 MG in SYRINGE 0 ML IV SCH (13:30)
[2016-10-08] MEDS ORDERED: ACETAMINOPHEN 500 MG TAB PO SCH (13:30)
[2016-10-09] MEDS: MoRPHine SULFATE 4 MG/ML 1 ML CARP\\VIAL IV PRN (03:31)
[2016-10-09 04:11] VITALS: BP 130/84; PULSE 98; TEMP 36.6; O2SAT 93
[2016-10-09] MEDS: LEVOTHYROXINE 150 MCG TAB PO SCH (05:57)
[2016-10-09 06:32] LABS: HEMATOCRIT 32.5 % (37-47); MEAN CELL VOLUME 93.1 fL (80-100); MEAN CORPUSCULAR HEMOGLOBIN 31.2 pg (25-34); MEAN CORPUSCULAR HGB CONC 33.5 g/dl (32-36); MEAN PLATELET VOLUME 10.1 fL (7.4-10.4); PLATELET COUNT 119 K/uL (130-400); RED BLOOD COUNT 3.49 M/uL (4.2-5.4); WHITE BLOOD COUNT 5.82 K/uL (4.8-10.8)
[2016-10-09 06:55] VITALS: BP 119/75; PULSE 102; TEMP 36.5; O2SAT 92
--- NOTE | 2016-10-09 07:07 | Progress Note ---
Subjective Date of Service: Oct 08, 2016. Subjective Pt evaluation today including: conversation w/ patient, conversation w/ family (mother, father, other family at 2nd visit later in day today - about 40 minutes ), physical exam, chart review, lab review, conversation w/ [facility]400 consultant (Dr. christine and Dr. Rojas ), review of inpatient medication list Pain: back, legs (right leg worse than left leg) PO Intake: fair at best Voiding: no voiding problems we had 2 lengthy discussions today about plan of care first was during my AM rounds 2nd in the late afternoon when her parents were here during AM rounds I discussed - 1. stopping coumadin, changing to just lovenox; I was concerned by our difficulties with keeping her INR 2-3 (she has been low here, and was apparently >8 in the office recently); I expressed my concerns that her tachycardia could be suggestive of PEs 2. starting cymbalta for depression, pain, and neuropathy 3. stopping IV vanco today and transitioning to oral abx in am 4. d/c tomorrow 2nd visit - see details in HPI she voiced no new medical concerns otherwise Problem List Medical Problems: (1) Anemia Status: Acute (2) Anemia Status: Acute (3) Cellulitis of right leg Status: Acute (4) Leukopenia Status: Acute Review of Systems Constitutional: No fever, No chills Respiratory: No cough, No sputum Cardiac: + edema, No chest pain Abdomen: No pain, No nausea, No vomiting, No diarrhea Female : No dysuria Objective Vital Signs Date Time Temp Pulse Resp B/P (MAP) Pulse Ox O2 Delivery O2 Flow Rate FiO2 10/08/16 20:15 36.6 96 18 108/83 96 10/08/16 19:48 36.5 97 20 128/84 (99) 95 Room Air 10/08/16 16:30 36.5 104 18 124/82 93 10/08/16 16:00 Room Air 10/08/16 15:36 36.4 100 16 121/81 98 10/08/16 14:31 36.6 108 18 114/74 10/08/16 14:20 37.0 111 16 111/67 10/08/16 12:08 114 18 126/80 (95) 95 Room Air 10/08/16 08:05 36.7 104 20 100/66 (77) 92 10/08/16 03:38 37.5 122 22 110/73 (85) 92 Room Air 10/08/16 00:43 Room Air 10/07/16 23:27 37.1 123 22 112/73 (86) 96 Room Air 10/07/16 21:30 Room Air Physical Exam General Appearance: no apparent distress, + cachetic ENT: pharynx normal (no thrush or mucositis) Neck: no JVD Respiratory/Chest: no respiratory distress, no accessory muscle use, + decreased breath sounds (bases b/l) Cardiovascular: no gallop, no murmur, + tachycardia Abdomen: normal bowel sounds, non tender, soft, no organomegaly, + distended ( with probable ascites) Extremities: + swelling (massive - 4+++ b/l, with fluid all the way to the hips ) Neurologic/Psychiatric: alert, oriented x 3, + depressed affect Skin: + pallor, + pertinent finding (right alves/leg ulcer - MUCH improved; cellulitis resolved; ulcer with scant drainage ) Comments: blotchy erythema over the upper medial thighs - likely due to her massive edema Laboratory Results Last 24 Hours Test 10/08/16 05:54 10/08/16 10:35 10/08/16 10:38 Creatinine 0.72 mg/dl Est Creatinine Clear Calc Drug Dose 95.5 ml/min Estimated GFR () 118.0 Estimated GFR (Non- 101.9 Magnesium Level 1.7 mg/dl Random Vancomycin Level 15.9 mcg/ml White Blood Count 4.63 K/uL Red Blood Count 2.59 M/uL Hemoglobin 8.1 g/dL Hematocrit 24.9 % Mean Corpuscular Volume 96.1 fL Mean Corpuscular Hemoglobin 31.3 pg Mean Corpuscular Hemoglobin Concent 32.5 g/dl Platelet Count 101 K/uL Mean Platelet Volume 9.8 fL RDW Standard Deviation 68.5 fL RDW Coefficient of Variation 20.6 % Neutrophils % (Manual) 83.5 % Lymphocytes % (Manual) 9.6 % Monocytes % (Manual) 1.7 % Metamyelocytes % 2.6 % Myelocytes % 1.7 % Blast Cells % 0.9 % Neutrophils # (Manual) 3.87 K/uL Total Absolute Neutrophils 3.87 K/uL Lymphocytes # (Manual) 0.44 K/uL Total Absolute Lymphocytes 0.44 K/uL Monocytes # (Manual) 0.08 K/uL Metamyelocytes # 0.12 K/uL Myelocytes # 0.08 K/uL Blast Cells # 0.04 K/uL Dohle Bodies 3+ Anisocytosis PRESENT Prothrombin Time 20.2 SECONDS Prothromb Time International Ratio 1.8 Assessment and Plan 45yo female: 1. RLE cellulitis with central ulcer w/ eschar - improved. Stop vanco after today's dose. Start keflex and doxycycline tomorrow AM - probably 7 days of each. Appreciate wound care consultation. I do not think the blotchy erythema on the thighs represent cellulitis - this is likely due to the massive edema instead. 2. stage 4 cervical cancer - continues with chemotherapy for salvage. Appreciate Dr. Christine's consultation. No additional recommendations at this time. Palliative care/hospice has been discussed by Dr. Christine in the past and during this admission; patient not ready for such. Code status discussed earlier this week; patient also not ready to change to DNR status. 3. pancytopenia - 2nd to chemo - improving/resolving but still quite anemic and tachycardic. After discussion with Dr. christine today will plan for 2 units of PRBCs today. CBC in am. 4. neutropenia - resolved; d/c precautions. 2nd to recent chemo. 5. severe hypomagnesemia - suspect due to poor oral intake and/or renal wasting. Low again today - replete; repeat level am. 6. severe hypoalbuminemia and IVC thrombosis/iliac vein thromboses (see CT abd/ pelvis from August 2016) with resulting severe b/l edema - doubt diuretics would be helpful. Mother asked about lymphedema treatments - I don't think I would recommend this at this time. Compression would be impossible and manual treatments likely would not help. 7. severe protein calorie malnutrition - boost BID/TID. 8. abnormal alk phos - either 2nd to bone mets or liver mets. 9. tachycardia - anemia, suspicion of PEs, lack of preload due to severe lymphedema in legs, etc likely contributing. May improved with PRBCs today. 10. h/o DVT RLE - both Dr. Christine and Dr. Rojas agree that she will be better protected with lovenox 1mg/kg bid in robert of coumadin. Coumadin has been stopped. Patient/family counseled about this decision and are agreeable. 11. hypothyroidism - continue synthroid. Recent level elevated; dose increased. Repeat TSH 6 weeks. Patient reports she had been compliant with synthroid - is she having issues with absorption of her meds? 12. h/o T2DM - all FSBS have been normal; stopped FSBS checks and novolog sliding scale. 13. hypokalemia - resolved. 14. back pain with right leg pain - has known L3 compression fracture with nerve impingement; this is likely cause of pain. Increased fentanyl patch to 125mcg q3d on 10/06/16. Cont oxy/percocet prn. 15. depression - start cymbalta 20mg daily today; pt agreeable. 16. hypomagnesemia - ongoing - 2 additional grams of mag sulfate today. I suspect she is either not absorbing mag in her gut or she has renal wasting. Her mag has been persistently low for months. Will need oral mag at discharge. 40+ minute family meeting held today reviewed all medical issues addressed this hospitalization reviewed increase in pain meds, using lovenox in robert of coumadin, starting cymbalta, discussing palliative care, discussing PRBCs today, etc mother asked numerous questions mother voiced concerns about increase in fentanyl patch - patient stated earlier this admission that her mother has never been accepting of the pain medication issue and has been averse to increases, etc I discussed with parents that she has advanced, stage 4 cancer with bone mets that are extremely painful she also has nerve pain from her L3 met I explained that without the pain meds Ms Thomas would be nonfunctional and in extreme pain around the clock I recommended that the parents speak with palliative care (Flor Jensen) to gain a better appreciation of what palliation is all about I explained that Ms Thomas can continue treating her cancer and STILL have palliative care mother was extremely tearful and left the room we discussed support groups for Ms. Thomas and her family code status was NOT discussed during this meeting anticipate d/c tomorrow Continued [facility] stay due to: abnormal vital signs, inadequate oral pain control , multiple IV medications needed Discharge planning: home with home health
[2016-10-09 07:09] LABS: BUN/CREATININE RATIO 16.7 (10-20); CALCIUM 7.6 mg/dl (8.5-10.1); CREATININE 0.67 mg/dl (0.60-1.20); MAGNESIUM 1.8 mg/dl (1.8-2.4); POTASSIUM 3.7 mmol/L (3.5-5.1)
[2016-10-09 08:00] VITALS: O2SAT 92
[2016-10-09] MEDS ORDERED: DOXYCYCLINE HYCLATE 100 MG CAP PO SCH (08:00)
[2016-10-09] MEDS ORDERED: MAGNESIUM OXIDE 400 MG TAB PO SCH (08:00)
[2016-10-09] MEDS ORDERED: DULOXETINE HCL 20 MG CAP PO SCH (08:00)
[2016-10-09] MEDS: CHECK FENTANYL PATCH PLACEMENT SCH ×4 (08:20→16:08)
[2016-10-09] MEDS ORDERED: FENTANYL PATCH REMOVE & WASTE SCH ×2 (08:59)
[2016-10-09] MEDS: ENOXAPARIN 80 MG/0.8 ML SYR SQ SCH (09:13)
[2016-10-09] MEDS: FENTANYL 100 MCG/HR TDSY TD SCH (09:18)
[2016-10-09] MEDS: FENTANYL 25 MCG/HR TDSY TD SCH (09:18)
[2016-10-09] MEDS: DRONABINOL 2.5 MG CAP PO SCH ×2 (09:20→17:02)
[2016-10-09] MEDS: CEPHALEXIN MONOHYDRATE 500 MG CAP PO SCH ×2 (09:21→13:02)
[2016-10-09 11:58] VITALS: BP 130/81; PULSE 102; TEMP 36.6; O2SAT 93
[2016-10-09] MEDS ORDERED: CYM20 PO (13:01)
[2016-10-09] MEDS ORDERED: DRGTP100 TD (13:01)
[2016-10-09] MEDS ORDERED: KFL500 PO (13:01)
[2016-10-09] MEDS ORDERED: MGNO400 PO (13:01)
[2016-10-09] MEDS ORDERED: SYN150 PO (13:01)
[2016-10-09] MEDS ORDERED: LVNIS80 SQ (13:01)
[2016-10-09] MEDS ORDERED: DXY100 PO (13:01)
[2016-10-09] MEDS ORDERED: DRGTP25 TD (13:01)
--- NOTE | 2016-10-09 13:12 | Discharge Instructions ---
Discharge Instructions Date of Service Oct 09, 2016. Admission Reason for Admission: Cellulitis Discharge Discharge Diagnosis / Problem: Right lower extremity cellulitis Discharge Goals Goal(s): Decrease discomfort, Improve function, Increase independence, Improve disease control, Learn about illness, Diagnostic testing, Therapeutic intervention Activity Recommendations Activity Limitations: resume your previous activity Patient to be discharged home Please continue to take antibiotics keflex 500 mg tablet three times a day and doxycycline 100 mg tablet twice a day for 7 more days Please take magnesium oxide tablets twice a day Please continue taking lovenox 80 mg injections twice a day and stop taking coumadin New prescriptions for synthroid and fentanyl and cymbalta, please take as directed Please follow up with Dr Kelly in 1-2 weeks Follow up with Dr Bailey in 1-2 weeks . Current Hospital Diet Patient's current hospital diet: Regular Diet Discharge Diet Recommended Diet: Regular Diet Pending Studies Studies pending at discharge: no Medical Emergencies . Who to Call and When: Medical Emergencies: If at any time you feel your situation is an emergency, please call 911 immediately. . Non-Emergent Contact Non-Emergency issues call your: Primary Care Provider Call Non-Emergent contact if: you have a fever, your pain is worsening . . "Provider Documentation" section prepared by Richi Castro. . VTE Core Measure Inpt VTE Proph given/why not?: Enoxaparin (Lovenox)SQ, Warfarin (Coumadin)
[2016-10-09 15:11] VITALS: BP 125/81; PULSE 104; TEMP 36.7; O2SAT 94
[2016-10-09 16:00] VITALS: O2SAT 94
--- NOTE | 2016-10-09 17:05 | Progress Note ---
Subjective Date of Service: Oct 09, 2016. Subjective Pt evaluation today including: conversation w/ patient, physical exam, chart review, lab review, review of studies, review of inpatient medication list No symptoms at this time Reports cellulitis getting better OK for discharge home Problem List Medical Problems: (1) Anemia Status: Acute (2) Anemia Status: Acute (3) Cellulitis of right leg Status: Acute (4) Leukopenia Status: Acute Review of Systems Constitutional: No fever, No chills, No sweats, No weight loss Respiratory: No cough, No sputum, No wheezing, No shortness of breath, No dyspnea on exertion Cardiac: No chest pain, No orthopnea, No PND, No edema, No claudication Abdomen: No pain, No nausea, No vomiting, No diarrhea, No constipation Musculoskeletal: No joint pain, No muscle pain, No swelling, No calf pain Female : No dysuria, No urinary frequency, No hematuria, No incontinence Neurologic: No memory loss, No paralysis, No weakness, No numbness/tingling Psychiatric: No depression symptoms, No anhedonism, No anxiety, No insomnia Objective Vital Signs Date Time Temp Pulse Resp B/P (MAP) Pulse Ox O2 Delivery O2 Flow Rate FiO2 10/09/16 16:00 94 Room Air 10/09/16 15:11 36.7 104 20 125/81 (96) 94 Room Air 10/09/16 13:41 36.6 102 20 93 Room Air 10/09/16 11:58 36.6 102 20 130/81 (97) 93 Room Air 10/09/16 08:00 92 Room Air 10/09/16 06:55 36.5 102 20 119/75 (90) 92 Room Air 10/09/16 04:11 36.6 98 20 130/84 (99) 93 Room Air 10/09/16 00:57 Room Air 10/08/16 22:45 36.6 104 20 132/84 94 10/08/16 21:45 36.6 99 18 133/89 10/08/16 21:15 36.6 99 18 129/83 10/08/16 21:00 Room Air 10/08/16 20:45 36.5 97 18 117/80 94 10/08/16 20:30 36.6 98 18 128/83 95 10/08/16 20:15 36.6 96 18 108/83 96 10/08/16 19:48 36.5 97 20 128/84 (99) 95 Room Air Physical Exam General Appearance: WD/WN, no apparent distress ENT: normal ENT inspection, hearing grossly normal, TMs normal, pharynx normal Neck: supple, no adenopathy, thyroid normal, no JVD Respiratory/Chest: chest non-tender, lungs clear, normal breath sounds, no respiratory distress Cardiovascular: regular rate, rhythm, no edema, no gallop, no JVD Abdomen: normal bowel sounds, non tender, soft, no organomegaly Neurologic/Psychiatric: no motor/sensory deficits, alert, normal mood/affect, oriented x 3 Laboratory Results Last 24 Hours Test 10/09/16 05:52 White Blood Count 5.82 K/uL Red Blood Count 3.49 M/uL Hemoglobin 10.9 g/dL Hematocrit 32.5 % Mean Corpuscular Volume 93.1 fL Mean Corpuscular Hemoglobin 31.2 pg Mean Corpuscular Hemoglobin Concent 33.5 g/dl RDW Standard Deviation 57.1 fL RDW Coefficient of Variation 18.3 % Platelet Count 119 K/uL Mean Platelet Volume 10.1 fL Sodium Level 141 mmol/L Potassium Level 3.7 mmol/L Chloride Level 106 mmol/L Carbon Dioxide Level 30 mmol/L Anion Gap 5.0 mmol/L Blood Urea Nitrogen 11 mg/dl Creatinine 0.67 mg/dl Est Creatinine Clear Calc Drug Dose 102.0 ml/min Estimated GFR () 123.9 Estimated GFR (Non- 106.9 BUN/Creatinine Ratio 16.7 Random Glucose 79 mg/dl Calcium Level 7.6 mg/dl Magnesium Level 1.8 mg/dl Assessment and Plan 45yo female: RLE cellulitis with central ulcer w/ eschar - Resolved. Finished course of vanco Start keflex and doxycycline for 7 days each on discharge Stage 4 cervical cancer - continues with chemotherapy for salvage. Appreciate Dr. Kelly's consultation. No additional recommendations at this time. Palliative care/hospice has been discussed by Dr. Kelly in the past and during this admission; patient not ready for such. Code status discussed earlier this week; patient also not ready to change to DNR status. F/U with Dr Kelly on discharge Pancytopenia - 2nd to chemo - improving/resolving but still quite anemic and tachycardic. Hg stable s/p 2 units RBS transfusion on 10/08 Neutropenia - resolved; d/c precautions. 2nd to recent chemo. Severe hypomagnesemia - suspect due to poor oral intake and/or renal wasting. Resolved Severe hypoalbuminemia and IVC thrombosis/iliac vein thromboses (see CT abd/ pelvis from August 2016) with resulting severe b/l edema - doubt diuretics would be helpful. Severe protein calorie malnutrition - boost BID/TID. H/o DVT RLE - both Dr. Kelly and Dr. Rojas agree that she will be better protected with lovenox 1mg/kg bid in robert of coumadin. Coumadin has been stopped. Patient/family counseled about this decision and are agreeable. Hypothyroidism - continue synthroid. Recent level elevated; dose increased. Repeat TSH 6 weeks. Patient reports she had been compliant with synthroid - is she having issues with absorption of her meds? H/o T2DM - all FSBS have been normal; stopped FSBS checks and novolog sliding scale. Back pain with right leg pain - has known L3 compression fracture with nerve impingement; this is likely cause of pain. Increased fentanyl patch to 125mcg q3d on 10/06/16. Cont oxy/percocet prn. Depression - start cymbalta 20mg daily today; pt agreeable. Pt is FULL CODE Continued [facility] stay due to: abnormal vital signs, inadequate oral pain control , multiple IV medications needed Discharge planning: home with home health
[2016-10-10] MEDS ORDERED: VANCOMYCIN TROUGH SCH (10:30)
--- NOTE | 2016-10-20 16:35 | Discharge Summary ---
Discharge Summary Date of Service Oct 09, 2016. Discharge Summary Admission Date: Oct 03, 2016 at 16:03 Discharge Date: Oct 09, 2016 Discharge Disposition: Home Principal Diagnosis: lower ext cellulitis, cervical cancer Immunizations: Have You Had Influenza Vaccine: Yes History of Tetanus Vaccine?: Yes History of Pneumococcal: No History of Hepatitis B Vaccine: Unknown Consultations: Oncology Medication Reconciliation New Medications: Duloxetine HCl (Duloxetine HCl) 20 Mg Cap 20 MG PO QAM for 30 Days, #30 CAP Fentanyl (Fentanyl) 100 Mcg Tdsy 100 MCG TD Q3D@0900 for 30 Days, #10 PATCH Fentanyl (Fentanyl) 25 Mcg Tdsy 25 MCG TD Q3D@0900 for 30 Days, #10 PATCH Levothyroxine Sodium (Synthroid) 150 Mcg Tab 150 MCG PO DAILYBB for 30 Days, #30 TAB Magnesium Oxide (Magnesium-Oxide) 400 Mg Tab 400 MG PO BID for 30 Days, #60 TAB Continued Medications: Cholecalciferol (Vitamin D3) 1,000 Unit Tab 1 TAB PO DAILY for 30 Days, #30 TAB 5 Refills Multivitamin (Multivitamin) Tab 1 TAB PO DAILY, TAB Ondansetron Hcl (Zofran) 8 Mg Tab 8 MG PO Q8 PRN for Nausea, TAB Prochlorperazine Maleate (Compazine) 10 Mg Tab 1 TAB PO Q6 PRN for Nausea or Vomiting for 7 Days, #30 TAB 3 Refills Sennosides (Senna Laxative) 8.6 Mg Tab 1 TAB PO Q2D Discontinued Medications: Fentanyl (Fentanyl) 75 Mcg Tdsy 75 MCG EXT [id number] Warfarin Sod (Jantoven) 2 Mg Tab 2 MG PO 4XWK, TAB Warfarin Sod (Jantoven) 2 Mg Tab 3 MG PO 3XWK, TAB Mon/Wed/Fri [synthroid] () 137 MCG PO DAILY Discharge Exam Review of Systems: Constitutional: No fever, No chills Respiratory: No cough, No sputum, No wheezing, No shortness of breath, No dyspnea on exertion, No dyspnea at rest Cardiovascular: No chest pain, No orthopnea, No PND, No edema Abdomen: No pain, No nausea, No vomiting, No diarrhea, No constipation Musculoskeletal: No joint pain, No muscle pain, No swelling, No calf pain Genitourinary - Female: No dysuria, No urinary frequency, No urinary urgency , No urinary incontinence Neurologic: No memory loss, No paralysis, No weakness, No numbness/tingling Psychiatric: No depression symptoms, No anhedonism, No anxiety, No insomnia Endocrine: No fatigue, No excessive thirst Physical Exam: General Appearance: WD/WN, no apparent distress Eyes: normal inspection, PERRL, EOMI ENT: normal ENT inspection, hearing grossly normal, TMs normal, pharynx normal Respiratory/Chest: chest non-tender, lungs clear, normal breath sounds, no respiratory distress Cardiovascular: regular rate, rhythm, no edema, no gallop, no JVD Abdomen / GI: normal bowel sounds, non tender, soft, no organomegaly Neurologic/Psychiatric: alert, normal mood/affect, normal reflexes, oriented x 3 Skin: normal color, warm/dry, no rash Lymphatic: no adenopathy Hospital Course 45yo female: RLE cellulitis with central ulcer w/ eschar - Resolved. Finished course of vanco Start keflex and doxycycline for 7 days each on discharge Stage 4 cervical cancer - continues with chemotherapy for salvage. Appreciate Dr. Kelly's consultation. No additional recommendations at this time. Palliative care/hospice has been discussed by Dr. Kelly in the past and during this admission; patient not ready for such. Code status discussed earlier this week; patient also not ready to change to DNR status. F/U with Dr Kelly on discharge Pancytopenia - 2nd to chemo - improving/resolving but still quite anemic and tachycardic. Hg stable s/p 2 units RBS transfusion on 10/08 Neutropenia - resolved; d/c precautions. 2nd to recent chemo. Severe hypomagnesemia - suspect due to poor oral intake and/or renal wasting. Resolved Severe hypoalbuminemia and IVC thrombosis/iliac vein thromboses (see CT abd/ pelvis from August 2016) with resulting severe b/l edema - doubt diuretics would be helpful. Severe protein calorie malnutrition - boost BID/TID. H/o DVT RLE - both Dr. Kelly and Dr. Rojas agree that she will be better protected with lovenox 1mg/kg bid in robert of coumadin. Coumadin has been stopped. Patient/family counseled about this decision and are agreeable. Hypothyroidism - continue synthroid. Recent level elevated; dose increased. Repeat TSH 6 weeks. Patient reports she had been compliant with synthroid - is she having issues with absorption of her meds? H/o T2DM - all FSBS have been normal; stopped FSBS checks and novolog sliding scale. Back pain with right leg pain - has known L3 compression fracture with nerve impingement; this is likely cause of pain. Increased fentanyl patch to 125mcg q3d on 10/06/16. Cont oxy/percocet prn. Depression - start cymbalta 20mg daily today; pt agreeable. Pt is FULL CODE Total Time Spent: Greater than 30 minutes This includes examination of the patient, discharge planning, medication reconciliation, and communication with other providers. Discharge Instructions Please refer to the electronic Patient Visit Report (Discharge Instructions) for additional information.
== END 2016-10-09 17:24 | disposition home or self-care (01) | DRG 602 ==
LOC: C.EDB 12:23 → UNDOADMIN 16:03 → C.MS2W 16:03 → EDBEDREQ 16:07 → ENRESERV 16:47 → C.4E 10-04 18:05
PROVIDERS: ADMIT Hospitalist; ATTEND Hospitalist
DX: L03.115 Cellulitis of right lower limb (principal); D61.810 Antineoplastic chemotherapy induced pancytopenia; C79.89 Secondary malignant neoplasm of other specified sites; C79.51 Secondary malignant neoplasm of bone; E11.9 Type 2 diabetes mellitus without complications; D72.819 Decreased white blood cell count, unspecified; C53.9 Malignant neoplasm of cervix uteri, unspecified; Z92.21 Personal history of antineoplastic chemotherapy; Z79.01 Long term (current) use of anticoagulants; Z79.899 Other long term (current) drug therapy; Z83.3 Family history of diabetes mellitus; Z82.49 Family history of ischemic heart disease and other diseases of the circulatory system; Z82.0 Family history of epilepsy and other diseases of the nervous system

== ENCOUNTER 2016-10-19 10:10 | Inpatient (IN) | payer BC ==
[~2016-10-19] VITALS: Ht 154.9 cm; Wt 89.5 kg
[~2016-10-19 10:10] MED LIST changes: +CYM20 PO; +DRGTP100 TD; +DRGTP25 TD; +DXY100 PO; -FNTTP75 EXT; +KFL500 PO; +LVNIS80 SQ; +MGNO400 PO; +SYN150 PO; -WARF2TAB8 PO; -synthroid PO
[2016-10-19] MEDS ORDERED: FENTANYL CITRATE INJ 50 MCG/1 ML 2 ML VIAL IV STA (11:12)
[2016-10-19] MEDS ORDERED: SODIUM CHLORIDE 0.9% 1000ML 1,000 ML IV STA (11:12)
--- NOTE | 2016-10-19 11:36 | DIAGNOSTIC IMAGING REPORT ---
CHEST ONE VIEW PORTABLE HISTORY: Atypical CHEST PAIN COMPARISON: Chest 05/12/2016. FINDINGS: No pneumothorax. Persistent elevation the right hemidiaphragm. The heart is normal in size. Left subclavian Port-A-Cath terminates at the SVC. Bibasal linear densities favor subsegmental atelectasis. There is suggestion of trace bilateral pleural effusions. No evidence for pulmonary edema. IMPRESSION: Trace bilateral pleural effusions. Bibasilar densities are nonspecific but favor atelectasis. Electronically signed by: Carlos Cruz M.D. 10/19/2016 11:34 AM Dictated Date/Time: 10/19/2016 11:33 AM
[2016-10-19] MEDS ORDERED: OPTIRAY 320 IV PRN (11:45)
--- NOTE | 2016-10-19 11:59 | EMERGENCY ROOM VISIT NOTE ---
History Report prepared by Leona: Dalia Hardy Under the Supervision of: Dr. Mario Benton M.D. First contact with patient: 10:54 Chief Complaint: BACK PAIN Stated Complaint: BACK, LANETTE. LEG PAIN History of Present Illness The patient is a 46 year old female who presents to the Emergency Room with complaints of worsening back pain starting this morning. The patient states that she has cervical cancer that has spread to her back, pelvis, and stomach. She reports that she was supposed to have a chemo treatment this morning but cancelled because her leg pain is so bad. She states that her oncologist told her to come to the ED. The patient reports that the pain radiated from her hip to her knee cap on her right side and from the back of her knee cap to her ankle on the left side. She notes that her legs are more swollen than usual. The patient complains of diarrhea that has been intermittent for a month and related to chemotherapy. She currently rates her pain as a 9/10 in severity. The patient denies chest pain, shortness of breath, fevers, chills, nausea, vomiting, headache, dizziness, and urinary symptoms. The patient notes that she has missed four weeks of chemotherapy for platelet transfusions and being in the hospital. She notes that she did have a sonogram done to determine if she had blood clots in her legs and it came back negative. She reports that she has a history of blood clots in her leg, but that this feels differently. She notes that she takes Lovenox, Oxycodone, and has a Fentanyl patch. Source of History: patient Onset: this morning Position: back Symptom Intensity: 9/10 Quality: other (radiating) Timing: worsening Associated Symptoms: + diarrhea, No fevers, No chills, No headache, No chest pain, No SOB, No vomiting, No urinary symptoms Note: The patient complains of leg plain. The patient denies dizziness. Review of Systems See HPI for pertinent positives and negatives. A total of ten systems were reviewed and were otherwise negative. Past Medical & Surgical Medical Problems: (1) Cellulitis (2) Deep vein blood clot of right lower extremity (3) Diabetes (4) Pancytopenia due to chemotherapy (5) Pelvic pain Family History Cancer Diabetes mellitus Heart disease Hypertension Seizures Social History Smoking Status: Never Smoker Drug Use: none Marital Status: single Occupation Status: disabled Current/Historical Medications Scheduled Cholecalciferol (Vitamin D3), 1 TAB PO DAILY Dronabinol (Dronabinol), 2.5 MG PO BID Duloxetine HCl (Duloxetine HCl), 20 MG PO QAM Enoxaparin (Lovenox), 80 MG SQ DAILY Fentanyl (Fentanyl), 100 MCG TD Q3D@0900 Fentanyl (Fentanyl), 25 MCG TD Q3D@0900 Levothyroxine Sodium (Synthroid), 150 MCG PO DAILYBB Magnesium Oxide (Magnesium-Oxide), 400 MG PO BID Multivitamin (Multivitamin), 1 TAB PO DAILY Potassium (Potassium), 1 TAB PO BID Sennosides (Senna Laxative), 1 TAB PO Q2D Scheduled PRN Ondansetron Hcl (Zofran), 8 MG PO Q8 PRN for Nausea Prochlorperazine Maleate (Compazine), 1 TAB PO Q6 PRN for Nausea or Vomiting Allergies Coded Allergies: Sulfa Antibiotics (Verified Allergy, Intermediate, Skin Rash , 09/27/16) Physical Exam Vital Signs Date Time Temp Pulse Resp B/P (MAP) Pulse Ox O2 Delivery O2 Flow Rate FiO2 10/19/16 16:13 93 10/19/16 16:05 102 16 146/96 98 Room Air 10/19/16 14:11 97 12 137/92 96 Room Air 10/19/16 12:10 106 10/19/16 12:04 101 12 145/102 98 Room Air 10/19/16 11:40 Room Air 10/19/16 10:34 99 22 146/95 97 Room Air Physical Exam GENERAL: Awake, alert, chronically ill-appearing, Cachetic. in no distress. HENT: Normocephalic, atraumatic. Dry mucus membranes. EYES: Normal conjunctiva. Sclera non-icteric. NECK: Supple. No nuchal rigidity. FROM. No JVD. RESPIRATORY: Clear to auscultation. CARDIAC: Regular rate, normal rhythm. Extremities warm and well perfused. Pulses equal. ABDOMEN: Soft, non-distended. No tenderness to palpation. No rebound or guarding. No masses. RECTAL: Deferred. MUSCULOSKELETAL: Chest examination reveals no tenderness. The back is symmetrical on inspection without obvious abnormality. There is no CVA tenderness to palpation. No joint edema. Tenderness to the lumbar region diffusely. LOWER EXTREMITIES: Calves are equal size bilaterally and non-tender. 4+ pitting edema bilaterally. No discoloration. 1cm area of induration with slight purulent discharge of the right medal aspect of the right calf without underlying fluctuance. Distal motor and sensory intact. NEURO: Normal sensorium. No sensory or motor deficits noted. SKIN: No rash or jaundice noted. Medical Decision & Procedures ER Provider Diagnostic Interpretation: Radiology results as stated below per my review and radiologist interpretation: CHEST ONE VIEW PORTABLE HISTORY: Atypical CHEST PAIN COMPARISON: Chest 05/12/2016. FINDINGS: No pneumothorax. Persistent elevation the right hemidiaphragm. The heart is normal in size. Left subclavian Port-A-Cath terminates at the SVC. Bibasal linear densities favor subsegmental atelectasis. There is suggestion of trace bilateral pleural effusions. No evidence for pulmonary edema. IMPRESSION: Trace bilateral pleural effusions. Bibasilar densities are nonspecific but favor atelectasis. Electronically signed by: Carlos Cruz M.D. 10/19/2016 11:34 AM Dictated Date/Time: 10/19/2016 11:[address] SCAN OF THE LUMBAR SPINE WITHOUT IV CONTRAST CLINICAL HISTORY: Low back pain. COMPARISON STUDY: MRI of the lumbar spine dated 06/19/2016. Abdominal CT dated 08/23/2016. TECHNIQUE: CT scan of the lumbar spine is performed from the lower thoracic spine to the sacrum. Images are reviewed in the axial, sagittal, and coronal planes. IV contrast was not administered specifically for this examination. IV contrast is present from the concurrently performed CT scan of the abdomen and pelvis. A dose lowering technique was utilized adhering to the principles of ALARA. FINDINGS: The skeletal structures are osteopenic. There is a severe chronic compression fracture of L3. There are small mildly retropulsed fragments identified. A mild chronic superior endplate compression deformity of L5 is again noted. There are mild superior endplate compression deformities of T11, T12, L1, and L2 that are new from the 08/23/2016 and are acute/subacute. No retropulsed fragments are identified. No lytic or blastic lesions are seen. There is a chronic fracture at the tip of the left L3 transverse process. The remaining transverse processes and the spinous processes appear intact. There is no evidence of spondylolysis. There is straightening of the lumbar lordosis. Small anterior osteophytes are seen throughout. There is moderate to advanced degenerative disc space narrowing at L5-S1. Mild disc space narrowing is seen at the remaining lumbar levels. There is no evidence of large disc herniation. The visualized sacrum and bony pelvis appear intact. Advanced sclerotic degenerative change is noted in the sacroiliac joints. The paraspinous soft tissues are within normal limits. Abdominal ascites is noted. A mass lesion in left adnexa is partially visualized. IMPRESSION: 1. There are mild acute to subacute superior endplate compression fracture of T11, T12, L1, and L2. These are new from 08/23/2016. No large retropulsed fragments are identified. 2. Chronic compression deformities of L3 and L5 are similar to previous. 3. Osteopenia and degenerative change as above. 4. Abdominal ascites is noted and a left adnexal lesion is partially imaged. See report of abdominal CT performed concurrently for detailed intra-abdominal findings. Electronically signed by: Alberto Ramos M.D. 10/19/2016 2:05 PM Dictated Date/Time: 10/19/2016 1:58 PM ABD/PELVIS IV CONTRAST ONLY CT DOSE: 626.47 mGy.cm HISTORY: Pain abdominal pain with BLE edema with known thrombosed IVC TECHNIQUE: Multiaxial CT images of the abdomen and pelvis were performed following the use of intravenous contrast. A dose lowering technique was utilized adhering to the principles of ALARA. COMPARISON STUDY: 08/23/2016 FINDINGS: Left pleural effusion mildly increased in volume from the prior study. Mildly progressive right basilar atelectatic and/or consolidative-type change. There is increased prominence the hepatic metastatic changes now demonstrating components of necrosis diffuse bilateral wall anasarca is again noted. This is similar to slightly progressive. Bladder is midline. Cystic and or complex lesion of the left ovary is again noted and appears similar. The additional pelvic and lower abdominal lesions appear similar. Abdominal and pelvic ascites is slightly progressive. Venous thrombosis. As described remains stable. Bowel pattern is considered nonobstructive currently. IMPRESSION: 1. Stable to slightly progressive findings of the abdomen, pelvis, and chest compared to the prior exam. 2. Slight progression of the patient's body wall anasarca as well as abdominal and pelvic ascites. 3. Masslike changes involving the lower abdominal and pelvic region are generally stable. 4. 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 Appearance of the urinary tracts are stable to slightly improved. The above report was generated using voice recognition software. It may contain grammatical, syntax or spelling errors. Electronically signed by: Andrei Hernandez M.D. 10/19/2016 2:06 PM Dictated Date/Time: 10/19/2016 1:51 PM Laboratory Results Test 10/19/16 11:45 Lactic Acid Level 1.1 mmol/L (0.4-2.0) Total Bilirubin 0.8 mg/dl (0.2-1) Direct Bilirubin 0.5 mg/dl (0-0.2) Aspartate Amino Transf (AST/SGOT) 42 U/L (15-37) Alanine Aminotransferase (ALT/SGPT) 14 U/L (12-78) Alkaline Phosphatase 333 U/L (45-117) Pro-B-Type Natriuretic Peptide 1063 pg/ml (0-450) Total Protein 5.2 gm/dl (6.4-8.2) Albumin 1.5 gm/dl (3.4-5.0) Lipase 39 U/L (73-393) Laboratory results reviewed by me Medications Administered Medications (Trade) Dose Ordered Sig/Janice Route Start Time Stop Time Status Last Admin Dose Admin Sodium Chloride 1,000 ml @ 999 mls/hr Q1H1M STAT IV 10/19/16 11:12 10/19/16 12:12 DC 10/19/16 11:51 999 MLS/HR Fentanyl Citrate (Fentanyl Inj) 50 mcg NOW STAT IV 10/19/16 11:12 10/19/16 11:16 DC 10/19/16 11:57 50 MCG Morphine Sulfate (MoRPHine SULFATE INJ) 6 mg NOW STAT IV 10/19/16 12:40 10/19/16 12:42 DC 10/19/16 13:00 6 MG Phytonadione (Mephyton Tab) 5 mg NOW STAT PO 10/19/16 15:30 10/19/16 15:42 DC 10/19/16 16:03 5 MG Morphine Sulfate (MoRPHine SULFATE INJ) 6 mg NOW STAT IV 10/19/16 15:30 10/19/16 15:42 DC 10/19/16 16:03 6 MG Sodium Chloride 1,000 ml @ 100 mls/hr Q10H IV 10/19/16 16:49 11/18/16 16:48 10/20/16 13:05 100 MLS/HR ECG Indication: back/shoulder pain Rate (beats per minute): 93 Rhythm: normal sinus Findings: no acute ischemic change, other (normal intervals) ED Course 1108: The patient was evaluated in room C12B. A complete history and physical exam was performed. 1112: Ordered Fentanyl Inj 50 mcg IV, NSS 1000 ml @ 999 mls/hr IV. 1240: Ordered Morphine Sulfate 6 mg IV. 1512: I reevaluated the patient and updated her on her test results. 1529: I discussed the case with Leticia Avila for oncology and he thinks we should admit the patient. 1530: Ordered Morphine Sulfate 6 mg IV, Phytonadione 5 mg PO. 1547: Discussed the patient's case with Dr. Sun. The patient will be evaluated for further treatment and disposition. Medical Decision I reviewed the patient's past medical history, medications, and the nursing notes as described above. Differential diagnoses include dehydration, electrolyte abnormality, infection pulmonary vs urinary, worsening peripheral edema, DVT, CHF, worsening metastatic disease. Patient is a 46-year-old woman with a past medical history of metastatic cervical cancer with intra-abdominal metastases as well as metastases to the lumbar spine presents emergency Department with worsening bilateral lower extremity swelling and pain per history of present illness. On arrival the patient appears chronically ill and fatigued, uncomfortable but in no acute distress. Considering the patient's known end-stage disease and worsening symptoms repeat CT scan done to evaluate for worsening metastatic disease and in particular for evolution of known IVC thrombus likely etiology for patient's eye lateral lower extremity edema. CT scan unremarkable for any acute changes to patient's significant disease including the IVC thrombus. Regarding the patient's draining abscess, considering no surrounding erythema or warmth will defer antibiotics at this time, will continue to allow for drainage. However patient with worsening INR reflective of the patient's malnutrition and likely impaired liver function in the setting of her metastatic disease. I discussed the case with patient's oncologist Dr. Briggs who confirmed the patient's poor prognosis. Agrees with admission for pain control. Recommends that elevated INR likely secondary to vitamin K deficiency and thus would likely improve with supplementation. Patient was given oral vitamin K. Patient would likely benefit from repeat goals of care discussion and possible palliative care consult, considering the patient's persistent symptoms despite recent hospitalization and discharge. Case was discussed with the [facility] hospitalist and they will admit the patient to the medicine service for further management and oncology consultation. Consults Time Called: 151 Consulting Physician: Dr. Kelly Returned Call: 1529 I discussed the case with Leticia Avila for oncology and he thinks we should admit the patient. Additional Consults: Time Called: 1541 Consulted Physician: Dr. Sun Returned Call: [phone] Additional Comments: Discussed the patient's case with Dr. Sun. The patient will be evaluated for further treatment and disposition. Impression Primary Impression: Metastatic disease Additional Impression: Peripheral edema Scribe Attestation The scribe's documentation has been prepared under my direction and personally reviewed by me in its entirety. I confirm that the note above accurately reflects all work, treatment, procedures, and medical decision making performed by me. Departure Information Dispostion Being Evaluated By Hospitalist Referrals Dejuan Bailey M.D. (PCP) Patient Instructions My [facility] Problem Qualifiers
[2016-10-19 12:13] LABS: BASO % 0.4 %; BASO ABS # 0.04 K/uL (0-0.2); COMPLETE YES; EOS % 0.2 %; IG% 1.1 %; LYMPH % 6.8 %; LYMPH ABS # 0.74 K/uL (1.2-3.4); MEAN CELL VOLUME 95.1 fL (80-100); MEAN CORPUSCULAR HGB CONC 32.6 g/dl (32-36); MEAN PLATELET VOLUME 9.6 fL (7.4-10.4); MONO % 11.4 %; NEUT % 80.1 %; PLATELET COUNT 232 K/uL (130-400); RED BLOOD COUNT 3.26 M/uL (4.2-5.4); WHITE BLOOD COUNT 10.93 K/uL (4.8-10.8)
[2016-10-19 12:27] LABS: INR 1.8 (0.9-1.1); PROTHROMBIN TIME (PATIENT) 19.3 SECONDS (9.0-12.0)
[2016-10-19 12:33] LABS: BUN/CREATININE RATIO 11.9 (10-20); CALCIUM 7.7 mg/dl (8.5-10.1); CREATININE 0.7 mg/dl (0.60-1.20); POTASSIUM 3.7 mmol/L (3.5-5.1)
[2016-10-19] MEDS ORDERED: MoRPHine SULFATE 10 MG/ML CARP/VIAL IV STA ×2 (12:40→15:30)
[2016-10-19] MEDS ORDERED: POTA75TA PO (13:08)
--- NOTE | 2016-10-19 14:07 | DIAGNOSTIC IMAGING REPORT ---
CT SCAN OF THE LUMBAR SPINE WITHOUT IV CONTRAST CLINICAL HISTORY: Low back pain. COMPARISON STUDY: MRI of the lumbar spine dated 06/19/2016. Abdominal CT dated 08/23/2016. TECHNIQUE: CT scan of the lumbar spine is performed from the lower thoracic spine to the sacrum. Images are reviewed in the axial, sagittal, and coronal planes. IV contrast was not administered specifically for this examination. IV contrast is present from the concurrently performed CT scan of the abdomen and pelvis. A dose lowering technique was utilized adhering to the principles of ALARA. FINDINGS: The skeletal structures are osteopenic. There is a severe chronic compression fracture of L3. There are small mildly retropulsed fragments identified. A mild chronic superior endplate compression deformity of L5 is again noted. There are mild superior endplate compression deformities of T11, T12, L1, and L2 that are new from the 08/23/2016 and are acute/subacute. No retropulsed fragments are identified. No lytic or blastic lesions are seen. There is a chronic fracture at the tip of the left L3 transverse process. The remaining transverse processes and the spinous processes appear intact. There is no evidence of spondylolysis. There is straightening of the lumbar lordosis. Small anterior osteophytes are seen throughout. There is moderate to advanced degenerative disc space narrowing at L5-S1. Mild disc space narrowing is seen at the remaining lumbar levels. There is no evidence of large disc herniation. The visualized sacrum and bony pelvis appear intact. Advanced sclerotic degenerative change is noted in the sacroiliac joints. The paraspinous soft tissues are within normal limits. Abdominal ascites is noted. A mass lesion in left adnexa is partially visualized. IMPRESSION: 1. There are mild acute to subacute superior endplate compression fracture of T11, T12, L1, and L2. These are new from 08/23/2016. No large retropulsed fragments are identified. 2. Chronic compression deformities of L3 and L5 are similar to previous. 3. Osteopenia and degenerative change as above. 4. Abdominal ascites is noted and a left adnexal lesion is partially imaged. See report of abdominal CT performed concurrently for detailed intra-abdominal findings. Electronically signed by: Alberto Ramos M.D. 10/19/2016 2:05 PM Dictated Date/Time: 10/19/2016 1:58 PM
--- NOTE | 2016-10-19 14:07 | DIAGNOSTIC IMAGING REPORT ---
ABD/PELVIS IV CONTRAST ONLY CT DOSE: 626.47 mGy.cm HISTORY: Pain abdominal pain with BLE edema with known thrombosed IVC TECHNIQUE: Multiaxial CT images of the abdomen and pelvis were performed following the use of intravenous contrast. A dose lowering technique was utilized adhering to the principles of ALARA. COMPARISON STUDY: 08/23/2016 FINDINGS: Left pleural effusion mildly increased in volume from the prior study. Mildly progressive right basilar atelectatic and/or consolidative-type change. There is increased prominence the hepatic metastatic changes now demonstrating components of necrosis diffuse bilateral wall anasarca is again noted. This is similar to slightly progressive. Bladder is midline. Cystic and or complex lesion of the left ovary is again noted and appears similar. The additional pelvic and lower abdominal lesions appear similar. Abdominal and pelvic ascites is slightly progressive. Venous thrombosis. As described remains stable. Bowel pattern is considered nonobstructive currently. IMPRESSION: 1. Stable to slightly progressive findings of the abdomen, pelvis, and chest compared to the prior exam. 2. Slight progression of the patient's body wall anasarca as well as abdominal and pelvic ascites. 3. Masslike changes involving the lower abdominal and pelvic region are generally stable. 4. 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 Appearance of the urinary tracts are stable to slightly improved. The above report was generated using voice recognition software. It may contain grammatical, syntax or spelling errors. Electronically signed by: Andrei Hernandez M.D. 10/19/2016 2:06 PM Dictated Date/Time: 10/19/2016 1:51 PM
[2016-10-19] MEDS ORDERED: PHYTONADIONE 5 MG TAB PO STA (15:30)
[2016-10-19] MEDS: SODIUM CHLORIDE 0.9% 1000ML 1,000 ML IV SCH ×2 (16:49→21:34)
[2016-10-19] MEDS ORDERED: ONDANSETRON 8 MG TAB PO PRN (17:00)
[2016-10-19] MEDS ORDERED: POLYETHYLENE (MIRALAX) 17 GM PACK PO PRN (17:00)
[2016-10-19] MEDS ORDERED: PROCHLORPERAZINE MALEATE 10 MG TAB PO PRN (17:00)
[2016-10-19] MEDS ORDERED: ACETAMINOPHEN 325 MG TAB PO PRN (17:00)
[2016-10-19] MEDS ORDERED: NALOXONE HCL 0.4 MG/1 ML VIAL/CARP IV PRN (17:00)
--- NOTE | 2016-10-19 17:39 | History and Physical ---
History & Physical Date & Time of Service: Oct 19, 2016 at 17:01 Chief Complaint: Back, Lavon. Leg Pain Primary Care Physician: Dejuan Bailey M.D. History of Present Illness This is a 46 yo F with PMHx of stage 4 cervical cancer with metastasis to pelvis , lung and spine currently undergoing chemotherapy, recently was hospitalized the beginning of this month for a RLE cellulitis with central ulcer with eschar and a RLE DVT placed on full dose anticoagulation. She also has PMHx of hypoalbuminemia, severe protein calorie malnutrition, chronically elevated Alk phos, Hypothyroidism, hx of DM II, back pain, hypomagnesemia and depression. She presents with intractable groin pain radiating down the left thigh to the posterior knee. She also has left posterior calf pain. She admits to right sided groin and thigh pain as well, although the left is much more painful. She originally had chemotherapy scheduled this morning, but cancelled it due to her pain. She has needed to postpone chemo for 2 weeks due to neutropenia, and has only had 1 cycle. Her outpatient oncologist is Dr. Briggs. She denies any fevers, sweats or chills. Denies any acute trauma or falls that would have precipitated this pain. Her bowels are moving normally and she is urinating without difficulty. Here in the ED includes an INR = 1.8, AST 42, Alk phos 333, ProBNP 1063, albumin of 1.5. CBC with Hgb of 10.1, WBC 10.93, and CMP is WNL. She is not neutropenic. CT of the lumbar spine shows new mild acute to subacute superior endplate compression fracture of T11, T12, L1, and L2. These are new from 08/23/2016. CT abd/pelvis appears to be generally stable. Past Medical/Surgical History Medical Problems: (1) Deep vein blood clot of right lower extremity Status: Resolved (2) Diabetes Status: Chronic Stage 4 cervical cancer with metastasis to pelvis, lung and spine currently undergoing chemotherapy, RLE cellulitis with central ulcer with eschar RLE DVT placed on full dose anticoagulation Hypoalbuminemia Severe protein calorie malnutrition Chronically elevated Alk phos Hypothyroidism hx of DM II Back pain Hypomagnesemia Depression Family History Cancer Diabetes mellitus Heart disease Hypertension Seizures Social History Smoking Status: Never Smoker Smokeless Tobacco Use: No Alcohol Use: none Drug Use: none Marital Status: single Housing status: lives with family Occupational Status: disabled Immunizations History of Influenza Vaccine: Yes History of Tetanus Vaccine?: Yes History of Pneumococcal: No History of Hepatitis B Vaccine: Unknown Multi-Drug Resistant Organisms History of MDRO: No Allergies Coded Allergies: Sulfa Antibiotics (Verified Allergy, Intermediate, Skin Rash , 09/27/16) Home Medications Scheduled Cholecalciferol (Vitamin D3), 1 TAB PO DAILY Dronabinol (Marinol), 1 TAB PO BID Duloxetine HCl (Duloxetine HCl), 20 MG PO QAM Enoxaparin (Lovenox), 80 MG SQ Q12 Fentanyl (Fentanyl), 100 MCG TD Q3D@0900 Fentanyl (Fentanyl), 25 MCG TD Q3D@0900 Levothyroxine Sodium (Synthroid), 150 MCG PO DAILYBB Magnesium Oxide (Magnesium-Oxide), 400 MG PO BID Multivitamin (Multivitamin), 1 TAB PO DAILY Potassium (Potassium), 1 TAB PO BID Sennosides (Senna Laxative), 1 TAB PO Q2D Scheduled PRN Ondansetron Hcl (Zofran), 8 MG PO Q8 PRN for Nausea Prochlorperazine Maleate (Compazine), 1 TAB PO Q6 PRN for Nausea or Vomiting Review of Systems Constitutional: + fatigue, No fever, No chills, No sweats Eyes: No worsening of vision, No redness ENT: No sore throat, No trouble swallowing Respiratory: No cough, No sputum, No wheezing, No shortness of breath, No dyspnea on exertion Cardiovascular: No chest pain, No palpitations Abdomen: No pain, No nausea, No vomiting, No diarrhea, No constipation Musculoskeletal: + swelling, + calf pain (R), No joint pain Genitourinary - Female: No dysuria, No urinary retention Neurologic: No memory loss, No numbness/tingling Psychiatric: No depression symptoms, No anxiety Endocrine: No fatigue Integumentary: No rash, No itch Physical Exam Vital Signs Date Time Temp Pulse Resp B/P (MAP) Pulse Ox O2 Delivery O2 Flow Rate FiO2 10/19/16 16:13 93 10/19/16 14:11 97 12 137/92 96 Room Air 10/19/16 12:10 106 10/19/16 12:04 101 12 145/102 98 Room Air 10/19/16 11:40 Room Air 10/19/16 10:34 99 22 146/95 97 Room Air General Appearance: WD/WN, + moderate distress, + pertinent finding (appears much older than stated, pale) Head: normocephalic, atraumatic, + pertinent finding (+ alopecia) Eyes: PERRL, EOMI ENT: hearing grossly normal, + pertinent finding (mucous membranes dry) Neck: supple, no JVD Respiratory/Chest: chest non-tender, lungs clear, normal breath sounds, no accessory muscle use Cardiovascular: no murmur, normal peripheral pulses, + tachycardia Abdomen/GI: normal bowel sounds, non tender, soft, no organomegaly Back: normal inspection Extremities/Musculoskelatal: + pedal edema (+ Lymphadema in BLE , 2+ pitting up to thighs. + Erythema over the posterior R calf. R calf acutely tender with minimal palpation. + Tenderness with palpation of the left thigh. LLE with chronic venous stasis changes over the ant tibial region. ), + pertinent finding (RLE posterior calf wound) Neurologic/Psych: alert, oriented x 3, + pertinent finding (sad affect, teary eyed at times) Skin: warm/dry, no rash, + pallor Diagnostics Laboratory Results Results Past 24 Hours Test 10/19/16 11:45 Range/Units White Blood Count 10.93 4.8-10.8 K/uL Red Blood Count 3.26 4.2-5.4 M/uL Hemoglobin 10.1 12.0-16.0 g/dL Hematocrit 31.0 37-47 % Mean Corpuscular Volume 95.1 80-100 fL Mean Corpuscular Hemoglobin 31.0 25-34 pg Mean Corpuscular Hemoglobin Concent 32.6 32-36 g/dl Platelet Count 232 130-400 K/uL Mean Platelet Volume 9.6 7.4-10.4 fL Neutrophils (%) (Auto) 80.1 % Lymphocytes (%) (Auto) 6.8 % Monocytes (%) (Auto) 11.4 % Eosinophils (%) (Auto) 0.2 % Basophils (%) (Auto) 0.4 % Neutrophils # (Auto) 8.76 1.4-6.5 K/uL Lymphocytes # (Auto) 0.74 1.2-3.4 K/uL Monocytes # (Auto) 1.25 0.11-0.59 K/uL Eosinophils # (Auto) 0.02 0-0.5 K/uL Basophils # (Auto) 0.04 0-0.2 K/uL RDW Standard Deviation 69.3 36.4-46.3 fL RDW Coefficient of Variation 19.8 11.5-14.5 % Immature Granulocyte % (Auto) 1.1 % Immature Granulocyte # (Auto) 0.12 0.00-0.02 K/uL Prothrombin Time 19.3 9.0-12.0 SECONDS Prothromb Time International Ratio 1.8 0.9-1.1 Sodium Level 142 136-145 mmol/L Potassium Level 3.7 3.5-5.1 mmol/L Chloride Level 104 98-107 mmol/L Carbon Dioxide Level 32 21-32 mmol/L Anion Gap 6.0 3-11 mmol/L Blood Urea Nitrogen 8 7-18 mg/dl Creatinine 0.70 0.60-1.20 mg/dl Est Creatinine Clear Calc Drug Dose 97.2 ml/min Estimated GFR () 121.3 Estimated GFR (Non- 104.6 BUN/Creatinine Ratio 11.9 10-20 Random Glucose 79 70-99 mg/dl Lactic Acid Level 1.1 0.4-2.0 mmol/L Calcium Level 7.7 8.5-10.1 mg/dl Total Bilirubin 0.8 0.2-1 mg/dl Direct Bilirubin 0.5 0-0.2 mg/dl Aspartate Amino Transf (AST/SGOT) 42 15-37 U/L Alanine Aminotransferase (ALT/SGPT) 14 12-78 U/L Alkaline Phosphatase 333 45-117 U/L Pro-B-Type Natriuretic Peptide 1063 0-450 pg/ml Total Protein 5.2 6.4-8.2 gm/dl Albumin 1.5 3.4-5.0 gm/dl Lipase 39 73-393 U/L Diagnostic Radiology CT SCAN OF THE LUMBAR SPINE WITHOUT IV CONTRAST CLINICAL HISTORY: Low back pain. COMPARISON STUDY: MRI of the lumbar spine dated 06/19/2016. Abdominal CT dated 08/23/2016. TECHNIQUE: CT scan of the lumbar spine is performed from the lower thoracic spine to the sacrum. Images are reviewed in the axial, sagittal, and coronal planes. IV contrast was not administered specifically for this examination. IV contrast is present from the concurrently performed CT scan of the abdomen and pelvis. A dose lowering technique was utilized adhering to the principles of ALARA. FINDINGS: The skeletal structures are osteopenic. There is a severe chronic compression fracture of L3. There are small mildly retropulsed fragments identified. A mild chronic superior endplate compression deformity of L5 is again noted. There are mild superior endplate compression deformities of T11, T12, L1, and L2 that are new from the 08/23/2016 and are acute/subacute. No retropulsed fragments are identified. No lytic or blastic lesions are seen. There is a chronic fracture at the tip of the left L3 transverse process. The remaining transverse processes and the spinous processes appear intact. There is no evidence of spondylolysis. There is straightening of the lumbar lordosis. Small anterior osteophytes are seen throughout. There is moderate to advanced degenerative disc space narrowing at L5-S1. Mild disc space narrowing is seen at the remaining lumbar levels. There is no evidence of large disc herniation. The visualized sacrum and bony pelvis appear intact. Advanced sclerotic degenerative change is noted in the sacroiliac joints. The paraspinous soft tissues are within normal limits. Abdominal ascites is noted. A mass lesion in left adnexa is partially visualized. IMPRESSION: 1. There are mild acute to subacute superior endplate compression fracture of T11, T12, L1, and L2. These are new from 08/23/2016. No large retropulsed fragments are identified. 2. Chronic compression deformities of L3 and L5 are similar to previous. 3. Osteopenia and degenerative change as above. 4. Abdominal ascites is noted and a left adnexal lesion is partially imaged. See report of abdominal CT performed concurrently for detailed intra-abdominal findings. Electronically signed by: Alberto Ramos M.D. 10/19/2016 2:05 PM Dictated Date/Time: 10/19/2016 1:58 PM The status of this report is Signed. ABD/PELVIS IV CONTRAST ONLY CT DOSE: 626.47 mGy.cm HISTORY: Pain abdominal pain with BLE edema with known thrombosed IVC TECHNIQUE: Multiaxial CT images of the abdomen and pelvis were performed following the use of intravenous contrast. A dose lowering technique was utilized adhering to the principles of ALARA. COMPARISON STUDY: 08/23/2016 FINDINGS: Left pleural effusion mildly increased in volume from the prior study. Mildly progressive right basilar atelectatic and/or consolidative-type change. There is increased prominence the hepatic metastatic changes now demonstrating components of necrosis diffuse bilateral wall anasarca is again noted. This is similar to slightly progressive. Bladder is midline. Cystic and or complex lesion of the left ovary is again noted and appears similar. The additional pelvic and lower abdominal lesions appear similar. Abdominal and pelvic ascites is slightly progressive. Venous thrombosis. As described remains stable. Bowel pattern is considered nonobstructive currently. IMPRESSION: 1. Stable to slightly progressive findings of the abdomen, pelvis, and chest compared to the prior exam. 2. Slight progression of the patient's body wall anasarca as well as abdominal and pelvic ascites. 3. Masslike changes involving the lower abdominal and pelvic region are generally stable. 4. 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 Appearance of the urinary tracts are stable to slightly improved. The above report was generated using voice recognition software. It may contain grammatical, syntax or spelling errors. Electronically signed by: Andrei Hernandez M.D. 10/19/2016 2:06 PM Dictated Date/Time: 10/19/2016 1:51 PM The status of this report is Signed. CHEST ONE VIEW PORTABLE HISTORY: Atypical CHEST PAIN COMPARISON: Chest 05/12/2016. FINDINGS: No pneumothorax. Persistent elevation the right hemidiaphragm. The heart is normal in size. Left subclavian Port-A-Cath terminates at the SVC. Bibasal linear densities favor subsegmental atelectasis. There is suggestion of trace bilateral pleural effusions. No evidence for pulmonary edema. IMPRESSION: Trace bilateral pleural effusions. Bibasilar densities are nonspecific but favor atelectasis. Electronically signed by: Carlos Cruz M.D. 10/19/2016 11:34 AM Dictated Date/Time: 10/19/2016 11:33 AM The status of this report is Signed. EKG Vent. rate 94 BPM SC interval 128 ms QRS duration 64 ms QT/QTc 352/440 ms P-R-T axes 25 1 -1 Normal sinus rhythm Nonspecific T wave abnormality When compared with ECG of 05-OCT-2016 08:05, No significant change was found Confirmed by SADAF BARRIGA ([id number]) on 10/19/2016 12:53:53 PM Normal EKG Impression Assessment and Plan 46 yo F with PMHx of stage 4 cervical cancer with metastasis to pelvis, lung and spine currently undergoing chemotherapy, recently was hospitalized the beginning of this month for a RLE cellulitis with central ulcer with eschar and a RLE DVT placed on full dose anticoagulation. Pt is here with intractable pelvic and thigh pain. Cervical Cancer, stg 4, metastasis to pelvis, lung and spine - Admit to med/surg - Pt follow with Dr. Briggs as an outpatient, will consult oncology - was scheduled to start cycle 2 of chemotherapy today but cancelled this herself. It has been held 2 times d/t neutropenia. - Intractable pelvic and thigh pain may be related to new onset of pathologic fractures as seen on CT scan: 1. There are mild acute to subacute superior endplate compression fracture of T11, T12, L1, and L2. These are new from 08/23/2016. No large retropulsed fragments are identified. 2. Chronic compression deformities of L3 and L5 are similar to previous. 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 Will allow day team to decide if they want xray. - Palliative care consulted: A long discussion was held with the patient regarding code status while in the ED. She is agreeable to a DNR at this time. She however, is still wanting to go through with chemotherapy and attempt to get through this. Will ask palliative care and oncology to have a family meeting with the patient, since she seems to have limited/poor insight to her unfortunately poor prognosis. - Tachycardic secondary to pain IVC thrombosis/ iliac vein thrombosis Hx RLE DVT - Will continue on Lovenox 80 U Q12H - No ultrasound as pt would be unable to tolerate this due to pain - INR 1.8- pt was administered 5 mg Vit K by ER RLE wound - Will consult wound Chronically elevated alk phos - Question if this is due to bone or liver metastasis - Will trend LFTs Hx hypomagnesemia - Will check mag due to poor oral intake, replace and trend if low - Continue mag-oxide tabs 400 BID Severe Protein calorie malnutrition - Boost TID along with regular diet, will consult nutrition - Albumin 1.5 - Continue marinol tablets BID for appetite stimulation - Cont MVI Hypothyroidism - Continue levothyroxine 150 mg daily Hx DM II - During last admission all blood glucose checks were normal. No need to place of ISS at this time. Trend glucose with am BMPs. Depression - Continue cymbalta 20 mg QAM DVT ppx: Lovenox 80 U Q12H CODE STATUS: FULL CODE Disposition: From home, lives with parents, CM to assist with discharge planning. MARTY Physician Supervision Note: I interviewed and examined the patient. Discussed with Maricarmen Subramanian PAC and agree with findings and plan as documented in the note. Any exceptions or clarifications are listed here: None Patient metastatic cervical cancer discharged from our facility 10 days prior to his significant functional decline at home but now intractable lower leg pain. She has massive lower extremity edema due to and occluded inferior vena cava and despite being therapeutically anticoagulated continues to have massive lower extremity swelling. She has seen wound care for a nonhealing right lower extremity medial lower leg wound is approximately $0.25 piece size. Despite the progression of her disease she is resistant to consider palliative care although she is agreeable to be DO NOT RESUSCITATE at this time She is markedly wasting hair loss alopecia weakness sign for cardiac exam is tachycardic but regular her lungs have decreased but some of the bases she has 2 -3+ edema bilateral lower legs from the thighs down with contact edema to her lower legs and no weeping of fluid Assessment is progressive metastatic cervical cancer likely nearing hospice care. 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 We'll maintain her therapeutic anticoagulation at this time. Documented By: Claudio Sun Level of Care Med/Surg Resuscitation Status DO NOT RESUSCITATE VTE Prophylaxis VTE Risk Assessment Done? Y/N: Yes Risk Level: Very Low Given or contraindicated: Enoxaparin (Lovenox)SQ Social Service Consult Cancer Patient Under [place]
[2016-10-19] MEDS ORDERED: HYDROmorphone INJ 1 MG/ML SYR IV PRN (18:30)
[2016-10-19] MEDS ORDERED: HYDROmorphone INJ 0.5 MG/0.5 ML SYR IV PRN (18:30)
[2016-10-19] MEDS ORDERED: HYDROmorphone INJ 0.5 MG/0.5 ML SYR IV STA (18:39)
[2016-10-19] MEDS: HYDROmorphone HCL 0.5MG/ML 50 ML CASSETTE IV PRN (21:55)
[2016-10-20] VITALS (8 sets, daily range): BP systolic 125–154; BP diastolic 82–99; PULSE 112–141; TEMP 36.6–37; O2SAT 91–97; Ht 154.9 cm; Wt 89.5 kg
[2016-10-20] MEDS: HYDROmorphone HCL 0.5MG/ML 50 ML CASSETTE IV PRN ×4 (01:36→16:12)
[2016-10-20] MEDS ORDERED: NURSING VERBAL MED ORDER ONE (03:00)
[2016-10-20] MEDS: SODIUM CHLORIDE 0.9% 1000ML 1,000 ML IV SCH ×5 (03:19→20:49)
[2016-10-20] MEDS: ONDANSETRON INJ 2 MG/ML 2 ML VIAL IV PRN (03:19)
[2016-10-20] MEDS ORDERED: MRN25 PO (03:20)
[2016-10-20 05:57] LABS: MEAN CELL VOLUME 94.8 fL (80-100); MEAN CORPUSCULAR HEMOGLOBIN 31.4 pg (25-34); MEAN CORPUSCULAR HGB CONC 33.1 g/dl (32-36); MEAN PLATELET VOLUME 9.6 fL (7.4-10.4); PLATELET COUNT 315 K/uL (130-400); RED BLOOD COUNT 3.06 M/uL (4.2-5.4); WHITE BLOOD COUNT 17.04 K/uL (4.8-10.8)
[2016-10-20 06:06] LABS: INR 1.4 (0.9-1.1); PROTHROMBIN TIME (PATIENT) 15.4 SECONDS (9.0-12.0)
[2016-10-20] MEDS: MAGNESIUM OXIDE 400 MG TAB PO SCH ×3 (06:16→20:48)
[2016-10-20] MEDS: LEVOTHYROXINE 150 MCG TAB PO SCH (06:16)
[2016-10-20 06:34] LABS: CALCIUM 7.3 mg/dl (8.5-10.1); CREATININE 0.61 mg/dl (0.60-1.20); POTASSIUM 3.6 mmol/L (3.5-5.1)
[2016-10-20 06:39] LABS: BASO % 0.2 %; BASO ABS # 0.04 K/uL (0-0.2); COMPLETE YES; EOS % 0.2 %; IG% 1.2 %; LYMPH % 4.6 %; LYMPH ABS # 0.79 K/uL (1.2-3.4); MONO % 10.7 %; NEUT % 83.1 %
[2016-10-20] MEDS ORDERED: BOOST VANILLA PO SCH ×6 (08:00→20:00)
[2016-10-20] MEDS: DRONABINOL 2.5 MG CAP PO SCH ×2 (08:15→20:58)
[2016-10-20] MEDS: CHECK FENTANYL PATCH PLACEMENT SCH ×4 (08:16→16:10)
[2016-10-20] MEDS: CHOLECALCIFEROL 1000 INTER.UNIT TAB PO SCH (08:18)
[2016-10-20] MEDS: MULTIVITAMIN TAB PO SCH (08:18)
[2016-10-20] MEDS: DULOXETINE HCL 20 MG CAP PO SCH (08:18)
[2016-10-20] MEDS: SENNA 8.6 MG TAB PO SCH (08:18)
[2016-10-20] MEDS ORDERED: NURSING DECISION MEDICATION ORDER SCH (08:30)
[2016-10-20] MEDS ORDERED: ENOX80IN SQ (10:09)
--- NOTE | 2016-10-20 12:29 | DIAGNOSTIC IMAGING REPORT ---
BILATERAL LOWER EXTREMITY VENOUS DOPPLER HISTORY: right lower leg pain COMPARISON STUDY: Right leg venous Doppler 04/04/2016. FINDINGS: Persistent extensive DVT throughout the entire right lower extremity deep venous systems. Subcutaneous edema within the bilateral lower extremities. Complex left pelvic fossa fluid collection demonstrate internal echoes which extends into the calf. This measures 20 cm in length and up to 7 cm in width. IMPRESSION: 1. Persistent extensive chronic DVT throughout the right lower extremity deep venous system. 2. No DVT within the left lower externally. 3. Large complex cystic lesion within the left popliteal fossa which extends into the calf. This favors a complex left popliteal cyst versus a hematoma. Electronically signed by: Carlos Cruz M.D. 10/20/2016 12:28 PM Dictated Date/Time: 10/20/2016 12:22 PM
--- NOTE | 2016-10-20 15:18 | Palliative Care Consultation ---
Consultation Date of Consultation: Oct 20, 2016. Requesting Physician: Sandy Subramanian PA-C Attending Physician: Dr. Castro Reason for Consultation: Goals of care History of Present Illness This unfortunate 46 year old female with stage IV ovarian cancer with mets to pelvis, lung, and spine, presented to the ED yesterday with c/o severe pain in back and bilateral legs. She has a complicated medical history with complications and several recent hospital admissions. She has compression fracture of the lumbar spine, has had PEs, DVTs, cellulitis of right leg, and others listed below. She has a very poor performance status and is failing outpatient treatment. She has not had chemo for four weeks due to illness and hospitalizations. Palliative care consulted to meet with patient and oncologist and discuss goals of care/hospice. Dr. Kelly and I met with patient in room 410. Patient is awake, alert and oriented. She appears very ill and malnourished, muscle wasting, alopecia, pallor, distended abdomen and edematous legs. Dr. Kelly had a enoc discussion about stopping chem as it is doing more harm than good at this point. He recommended hospice. Patient was rather accepting of this. She did get tearful when her and I talked. She stated that she feels if she stops chemo that she's "giving up," but she also verbalized that she knew this day was coming as chemo has not been helping. Patient's mother helps her make most decisions, so she does want time to talk with her mother about this. We discussed more about hospice and their service. Isabela is agreeable to having hospice when she goes home, but is okay with continuing current treatment in the hospital. Her pain is currently a 7/10 which is much better than when she came in. She has a lot of reservations about increasing pain medication as she does not want to be "taking all this stuff," and it is important to her to be awake. She is currently on 125mcg fentanyl patch, has had 14.75mg Dilaudid since admission. Dr. Kelly had talked with patient about possibly converting to methadone, patient tells me she would not want to do this. She also says she would not want to be on a TOOTH CUTTER PINION at home, however, we talked about this more and patient agrees that it is very important to her to not be suffering. Would be agreeable to TOOTH CUTTER PINION at home if needed. Past Medical/Surgical History Medical History: Deep vein blood clot of right lower extremity Diabetes Stage 4 cervical cancer with metastasis to pelvis, lung and spine currently undergoing chemotherapy, RLE cellulitis with central ulcer with eschar RLE DVT placed on full dose anticoagulation Hypoalbuminemia Severe protein calorie malnutrition Chronically elevated Alk phos Hypothyroidism hx of DM II Back pain Hypomagnesemia Depression Social History Smoking Status: Never Smoker History of Alcohol Use: No Drug Use: none Marital Status: single Housing Status: lives with family Occupation Status: disabled Review of Systems Constitutional: + weakness ENT: No trouble swallowing Respiratory: No cough, No shortness of breath Cardiac: + edema, + problem reported ("fast heart rate"), No chest pain Abdomen: + pain, + diarrhea, No nausea, No vomiting Female : No problem reported Psychiatric: + depression symptoms (general sadness and depression about situation), No anxiety Allergies Coded Allergies: Sulfa Antibiotics (Verified Allergy, Intermediate, Skin Rash , 09/27/16) Medications Current Inpatient Medications Medications (Trade) Dose Ordered Sig/Janice Route Start Time Stop Time Status Last Admin Dose Admin Ioversol (Optiray 320) 125 ml UD PRN IV 10/19/16 11:45 10/23/16 11:44 Acetaminophen (Tylenol Tab) 650 mg Q4H PRN PO 10/19/16 17:00 11/18/16 16:59 Polyethylene (Miralax Powder Packet) 17 gm DAILY PRN PO 10/19/16 17:00 11/18/16 16:59 Cholecalciferol (Vitamin D Tab) 1,000 inter.unit DAILY PO 10/20/16 08:00 11/19/16 08:59 10/20/16 08:18 1,000 INTER.UNIT Duloxetine HCl (Cymbalta Cap) 20 mg QAM PO 10/20/16 08:00 11/19/16 08:59 10/20/16 08:18 20 MG Enoxaparin Sodium (Lovenox Inj) 80 mg PM SQ 10/20/16 21:00 11/19/16 20:59 Fentanyl (Duragesic Patch) 25 mcg Q3D@0900 TD 10/21/16 09:00 11/04/16 08:59 Fentanyl (Duragesic Patch) 100 mcg Q3D@0900 TD 10/21/16 09:00 11/04/16 08:59 Levothyroxine Sodium (Synthroid Tab) 150 mcg DAILYBB PO 10/20/16 06:30 11/19/16 06:59 10/20/16 06:16 150 MCG Magnesium Oxide (Mag-Ox Tab) 400 mg BID PO 10/19/16 20:57 11/18/16 20:59 10/20/16 08:19 400 MG Multivitamins (Multivitamin Tab) 1 tab DAILY PO 10/20/16 08:00 11/19/16 08:59 10/20/16 08:18 1 TAB Ondansetron HCl (Zofran Tab) 8 mg Q8 PRN PO 10/19/16 17:00 11/18/16 16:59 Prochlorperazine Maleate (Compazine Tab) 10 mg Q6 PRN PO 10/19/16 17:00 11/18/16 16:59 Senna (Senokot Tab) 8.6 mg Q2D@0900 PO 10/20/16 09:00 11/19/16 08:59 Dronabinol (Marinol Cap) 2.5 mg BID PO 10/20/16 08:00 11/19/16 07:59 10/20/16 08:15 2.5 MG Naloxone HCl (Narcan Inj) 0.1 mg Q5M PRN IV 10/19/16 17:00 11/02/16 16:59 Hydromorphone HCl (Dilaudid [employer]) 25 mg PRN PRN IV 10/19/16 17:00 11/02/16 16:59 10/20/16 08:54 25 MG Sodium Chloride 1,000 ml @ 15 mls/hr Q24H IV 10/19/16 16:49 11/02/16 16:48 Sodium Chloride 1,000 ml @ 100 mls/hr Q10H IV 10/19/16 16:49 11/18/16 16:48 10/20/16 13:05 100 MLS/HR Hydromorphone HCl (Dilaudid Inj) 0.5 mg Q4 PRN IV 10/19/16 18:30 11/02/16 18:29 10/20/16 10:04 0.5 MG Hydromorphone HCl (Dilaudid Inj) 1 mg Q4 PRN IV 10/19/16 18:30 11/02/16 18:29 10/20/16 00:12 1 MG Ondansetron HCl (Zofran Inj) 4 mg Q4H PRN IV 10/20/16 03:15 11/19/16 03:14 10/20/16 03:19 4 MG Heparin Sodium (Porcine) (Heparin 100 Unit/ml 5ml Flush) 5 ml PRN PRN IV 10/20/16 03:15 11/19/16 03:14 Miscellaneous (Fentanyl Patch Remove & Waste) 1 ea Q3D@0859 N/A 10/21/16 08:59 11/20/16 08:58 Miscellaneous Information (Check Fentanyl Patch Placement) 1 ea QS N/A 10/20/16 08:00 11/19/16 07:59 10/20/16 08:16 1 EA Miscellaneous (Fentanyl Patch Remove & Waste) 1 ea Q3D@0859 N/A 10/21/16 08:59 11/20/16 08:58 Miscellaneous Information (Check Fentanyl Patch Placement) 1 ea QS N/A 10/20/16 08:00 11/19/16 07:59 10/20/16 08:16 1 EA Enteral Nutritional Formula (Boost) 1 can TID PO 10/20/16 14:00 11/19/16 13:59 10/20/16 13:06 1 CAN Enteral Nutritional Formula (Boost) TID PO 10/20/16 20:00 11/19/16 19:59 UNV Physical Exam Date Time Temp Pulse Resp B/P (MAP) Pulse Ox O2 Delivery O2 Flow Rate FiO2 10/20/16 11:16 36.8 141 16 125/86 (99) 96 Room Air 10/20/16 08:00 Room Air 10/20/16 07:36 36.7 134 16 144/96 (112) 93 Room Air 10/20/16 04:16 36.8 126 20 127/95 (106) 96 Room Air 10/20/16 01:03 36.6 112 14 149/91 93 Room Air 10/20/16 00:00 93 Room Air 10/20/16 00:00 36.6 112 14 149/91 (110) 93 Room Air 10/19/16 19:51 100 12 159/104 98 Room Air 8/17/17 18:15 100 16 150/93 98 Room Air 10/19/16 16:13 93 10/19/16 16:05 102 16 146/96 98 Room Air General Appearance: no apparent distress, + cachetic, + pertinent finding ( chronically ill appearing) ENT: hearing grossly normal Neck: supple, no JVD Respiratory: lungs clear, no respiratory distress, no accessory muscle use Cardiovascular: + tachycardia, + normal peripheral pulses, + pertinent finding (+3-4 pitting edema to BLE) Abdomen: normal bowel sounds, soft, + tenderness (mild) Neurologic/Psychiatric: alert, normal mood/affect, oriented x 3 Skin: + pallor, + pertinent finding (right medial alves ulcer, currently not draining but patient reports it was draining yesterday) Laboratory Results Last 24 Hours Test 10/20/16 05:12 10/20/16 07:24 10/20/16 14:27 White Blood Count 17.04 K/uL Red Blood Count 3.06 M/uL Hemoglobin 9.6 g/dL Hematocrit 29.0 % Mean Corpuscular Volume 94.8 fL Mean Corpuscular Hemoglobin 31.4 pg Mean Corpuscular Hemoglobin Concent 33.1 g/dl Platelet Count 315 K/uL Mean Platelet Volume 9.6 fL Neutrophils (%) (Auto) 83.1 % Lymphocytes (%) (Auto) 4.6 % Monocytes (%) (Auto) 10.7 % Eosinophils (%) (Auto) 0.2 % Basophils (%) (Auto) 0.2 % Neutrophils # (Auto) 14.16 K/uL Lymphocytes # (Auto) 0.79 K/uL Monocytes # (Auto) 1.82 K/uL Eosinophils # (Auto) 0.03 K/uL Basophils # (Auto) 0.04 K/uL RDW Standard Deviation 67.4 fL RDW Coefficient of Variation 19.8 % Immature Granulocyte % (Auto) 1.2 % Immature Granulocyte # (Auto) 0.20 K/uL Red Blood Cell Morphology Unremarkable Prothrombin Time 15.4 SECONDS Prothromb Time International Ratio 1.4 Sodium Level 141 mmol/L Potassium Level 3.6 mmol/L Chloride Level 104 mmol/L Carbon Dioxide Level 29 mmol/L Anion Gap 8.0 mmol/L Blood Urea Nitrogen 8 mg/dl Creatinine 0.61 mg/dl Est Creatinine Clear Calc Drug Dose 108.0 ml/min Estimated GFR () 126.9 Estimated GFR (Non- 109.5 BUN/Creatinine Ratio 13.0 Random Glucose 83 mg/dl Calcium Level 7.3 mg/dl Heparin Anti-Xa Act, Low Molec Wt 0.94 IU/ML Assessment & Plan Palliative Performance Scale: 40 % Problem list: Pain, back and BLE- likely radicular pain from compression fracture Metastatic ovarian cancer Right leg ulcer/wound Severe malnutrition Severe hypoalbuminemia- albumin 1.5 Poor performance status Hx DVT, PEs Goals of care (Z51.5) Palliative care recs: -Patient confirmed she is a DNR. -Isabela is accepting of hospice care once she goes home. For now, she'd like to continue current treatment while in hospital. -Patient is overwhelmed and sad about not being able to receive chemo. Stated that she feels this means she's "giving up," although she knows that's not true. She is struggling. I spoke with business continuity strategy director and she will visit patient. -Continue TOOTH CUTTER PINION where it is. I believe a home TOOTH CUTTER PINION will be the best option for the patient if she is willing. -Would increase fentanyl patch to 150mcg/hr Q72h. -No constipation at this time, patient actually c/o diarrhea. Is on senokot. -Denied any nausea/vomiting. -Assuming patient will be here through weekend, I will see her then and continue this conversation. Thank you kindly for this consult. I will follow.
--- NOTE | 2016-10-20 16:24 | Progress Note ---
Subjective Date of Service: Oct 20, 2016. Problem List Medical Problems: (1) Anemia Status: Acute (2) Anemia Status: Acute (3) Cellulitis of right leg Status: Acute (4) Leukopenia Status: Acute (5) Metastatic disease Status: Acute (6) Peripheral edema Status: Acute Objective Vital Signs Date Time Temp Pulse Resp B/P (MAP) Pulse Ox O2 Delivery O2 Flow Rate FiO2 10/20/16 15:33 37.0 136 18 154/99 (117) 93 Room Air 10/20/16 11:16 36.8 141 16 125/86 (99) 96 Room Air 10/20/16 08:00 Room Air 10/20/16 07:36 36.7 134 16 144/96 (112) 93 Room Air 10/20/16 04:16 36.8 126 20 127/95 (106) 96 Room Air 10/20/16 01:03 36.6 112 14 149/91 93 Room Air 10/20/16 00:00 93 Room Air 10/20/16 00:00 36.6 112 14 149/91 (110) 93 Room Air 10/19/16 19:51 100 12 159/104 98 Room Air 10/19/16 18:15 100 16 150/93 98 Room Air 10/19/16 16:13 93 Laboratory Results Last 24 Hours Test 10/20/16 05:12 10/20/16 07:24 10/20/16 14:41 White Blood Count 17.04 K/uL Red Blood Count 3.06 M/uL Hemoglobin 9.6 g/dL Hematocrit 29.0 % Mean Corpuscular Volume 94.8 fL Mean Corpuscular Hemoglobin 31.4 pg Mean Corpuscular Hemoglobin Concent 33.1 g/dl Platelet Count 315 K/uL Mean Platelet Volume 9.6 fL Neutrophils (%) (Auto) 83.1 % Lymphocytes (%) (Auto) 4.6 % Monocytes (%) (Auto) 10.7 % Eosinophils (%) (Auto) 0.2 % Basophils (%) (Auto) 0.2 % Neutrophils # (Auto) 14.16 K/uL Lymphocytes # (Auto) 0.79 K/uL Monocytes # (Auto) 1.82 K/uL Eosinophils # (Auto) 0.03 K/uL Basophils # (Auto) 0.04 K/uL RDW Standard Deviation 67.4 fL RDW Coefficient of Variation 19.8 % Immature Granulocyte % (Auto) 1.2 % Immature Granulocyte # (Auto) 0.20 K/uL Red Blood Cell Morphology Unremarkable Prothrombin Time 15.4 SECONDS Prothromb Time International Ratio 1.4 Sodium Level 141 mmol/L Potassium Level 3.6 mmol/L Chloride Level 104 mmol/L Carbon Dioxide Level 29 mmol/L Anion Gap 8.0 mmol/L Blood Urea Nitrogen 8 mg/dl Creatinine 0.61 mg/dl Est Creatinine Clear Calc Drug Dose 108.0 ml/min Estimated GFR () 126.9 Estimated GFR (Non- 109.5 BUN/Creatinine Ratio 13.0 Random Glucose 83 mg/dl Calcium Level 7.3 mg/dl Heparin Anti-Xa Act, Low Molec Wt 0.94 IU/ML Magnesium Level 1.4 mg/dl Assessment and Plan 46 yo F with PMHx of stage 4 cervical cancer with metastasis to pelvis, lung and spine currently undergoing chemotherapy, recently was hospitalized the beginning of this month for a RLE cellulitis with central ulcer with eschar and a RLE DVT placed on full dose anticoagulation. Pt is here with intractable pelvic and thigh pain. Cervical Cancer, stg 4, metastasis to pelvis, lung and spine - Admit to med/surg - Pt follow with Dr. Briggs as an outpatient, will consult oncology - was scheduled to start cycle 2 of chemotherapy today but cancelled this herself. It has been held 2 times d/t neutropenia. - Intractable pelvic and thigh pain may be related to new onset of pathologic fractures as seen on CT scan: 1. There are mild acute to subacute superior endplate compression fracture of T11, T12, L1, and L2. These are new from 08/23/2016. No large retropulsed fragments are identified. 2. Chronic compression deformities of L3 and L5 are similar to previous. - Will start dilaudid UROGYNECOLOGY PHYSICIAN for analgesia, continue on her home dosing of fentanyl patch 125 mcg Q3D - The pt may have pathological fx of long bone below the knee as she is describing and acute onset of pain with standing a few days ago- treatment would be pain control since she would not be a surgical candidate even if fx was identified. Will allow day team to decide if they want xray. - Palliative care consulted: A long discussion was held with the patient regarding code status while in the ED. She is agreeable to a DNR at this time. She however, is still wanting to go through with chemotherapy and attempt to get through this. Will ask palliative care and oncology to have a family meeting with the patient, since she seems to have limited/poor insight to her unfortunately poor prognosis. - Tachycardic secondary to pain -Spoke with oncology and palliative care, no further tx, rec hospice, will discuss with pt IVC thrombosis/ iliac vein thrombosis Hx RLE DVT - Dec lovenox to 80 mg once a day due to elev levels - INR 1.8- pt was administered 5 mg Vit K by ER RLE wound - Will consult wound Chronically elevated alk phos - Question if this is due to bone or liver metastasis - Will trend LFTs Hx hypomagnesemia - Will check mag due to poor oral intake, replace and trend if low - Continue mag-oxide tabs 400 BID Severe Protein calorie malnutrition - Boost TID along with regular diet, will consult nutrition - Albumin 1.5 - Continue marinol tablets BID for appetite stimulation - Cont MVI Hypothyroidism - Continue levothyroxine 150 mg daily Hx DM II - During last admission all blood glucose checks were normal. No need to place of ISS at this time. Trend glucose with am BMPs. Depression - Continue cymbalta 20 mg QAM DVT ppx: Lovenox 80 U Q12H CODE STATUS: FULL CODE
[2016-10-20] MEDS: ENOXAPARIN 80 MG/0.8 ML SYR SQ SCH (20:49)
[2016-10-20 23:23] LABS: URINE APPEARANCE CLEAR (CLEAR); URINE BILIRUBIN NEG (NEG); URINE COLOR DK YELLOW; URINE EPITHELIAL CELL AUTO >30 /lpf (0-5); URINE NITRITE NEG (NEG); URINE SPECIFIC GRAVITY 1.039 (1.000-1.030); UROBILINOGEN NEG (NEG)
[2016-10-20 23:26] LABS: MANUAL MICROSCOPIC REQUIRED? NO; REVIEW REQ? NO
[2016-10-21] MEDS: CHECK FENTANYL PATCH PLACEMENT SCH ×6 (00:08→15:30)
[2016-10-21 04:07] VITALS: BP 148/90; PULSE 127; TEMP 36.8; O2SAT 95
[2016-10-21] MEDS: SODIUM CHLORIDE 0.9% 1000ML 1,000 ML IV SCH ×2 (06:02→13:57)
[2016-10-21] MEDS: LEVOTHYROXINE 150 MCG TAB PO SCH (06:02)
[2016-10-21 06:58] LABS: BASO % 0.2 %; BASO ABS # 0.04 K/uL (0-0.2); EOS % 0.3 %; HEMATOCRIT 25.7 % (37-47); IG% 0.8 %; LYMPH ABS # 1.16 K/uL (1.2-3.4); MEAN CELL VOLUME 95.5 fL (80-100); MEAN CORPUSCULAR HGB CONC 30.4 g/dl (32-36); MEAN PLATELET VOLUME 9.1 fL (7.4-10.4); MONO % 15.3 %; NEUT % 76.4 %; PLATELET COUNT 282 K/uL (130-400); RED BLOOD COUNT 2.69 M/uL (4.2-5.4); WHITE BLOOD COUNT 16.54 K/uL (4.8-10.8)
[2016-10-21 07:04] LABS: INR 1.3 (0.9-1.1); PROTHROMBIN TIME (PATIENT) 14.3 SECONDS (9.0-12.0)
[2016-10-21 07:21] LABS: BUN/CREATININE RATIO 14.4 (10-20); CALCIUM 7.1 mg/dl (8.5-10.1); CREATININE 0.59 mg/dl (0.60-1.20); POTASSIUM 3.6 mmol/L (3.5-5.1)
[2016-10-21 07:33] VITALS: BP 150/92; PULSE 126; TEMP 37; O2SAT 97
[2016-10-21 07:37] LABS: COMPLETE YES
[2016-10-21 07:39] LABS: ANISOCYTOSIS PRESENT
[2016-10-21] MEDS: MULTIVITAMIN TAB PO SCH (08:13)
[2016-10-21] MEDS: DULOXETINE HCL 20 MG CAP PO SCH (08:13)
[2016-10-21] MEDS: MAGNESIUM OXIDE 400 MG TAB PO SCH ×2 (08:13→20:43)
[2016-10-21] MEDS: CHOLECALCIFEROL 1000 INTER.UNIT TAB PO SCH (08:15)
[2016-10-21] MEDS: DRONABINOL 2.5 MG CAP PO SCH ×2 (08:21→20:42)
[2016-10-21] MEDS: FENTANYL 25 MCG/HR TDSY TD SCH (08:22)
[2016-10-21] MEDS: FENTANYL PATCH REMOVE & WASTE SCH ×2 (08:22→08:28)
[2016-10-21] MEDS: FENTANYL 100 MCG/HR TDSY TD SCH (08:22)
[2016-10-21] MEDS ORDERED: FENTANYL 100 MCG/HR TDSY TD SCH (09:00)
[2016-10-21] MEDS ORDERED: LIDODERM (LIDOCAINE) PATCH 5% TD ONE (11:47)
--- NOTE | 2016-10-21 11:50 | Progress Note ---
Subjective Date of Service: Oct 21, 2016. Subjective Pt evaluation today including: conversation w/ patient, physical exam, chart review, lab review, review of studies, review of inpatient medication list Pt resting comfortably in bed States pain mildly improved, but worse still in left calf and right hip No fevers or chills No acute events overnight Problem List Medical Problems: (1) Anemia Status: Acute (2) Anemia Status: Acute (3) Cellulitis of right leg Status: Acute (4) Leukopenia Status: Acute (5) Metastatic disease Status: Acute (6) Peripheral edema Status: Acute Review of Systems Constitutional: No fever, No chills, No sweats, No weight loss Eyes: No worsening of vision, No eye pain, No redness, No discharge ENT: No hearing loss, No unusual epistaxis, No nasal symptoms, No sore throat Respiratory: No cough, No sputum, No wheezing, No shortness of breath Cardiac: No chest pain, No orthopnea, No PND, No edema Abdomen: No pain, No nausea, No vomiting, No diarrhea Musculoskeletal: + joint pain, + muscle pain, + calf pain, No swelling Female : No dysuria, No urinary frequency, No hematuria, No incontinence Neurologic: No memory loss, No paralysis, No weakness, No numbness/tingling Psychiatric: + depression symptoms, No anhedonism, No anxiety, No insomnia Endo: No fatigue, No excessive thirst Skin: No rash, No itch Objective Vital Signs Date Time Temp Pulse Resp B/P (MAP) Pulse Ox O2 Delivery O2 Flow Rate FiO2 10/21/16 08:32 Room Air 10/21/16 07:33 37.0 126 18 150/92 (111) 97 Room Air 10/21/16 04:07 36.8 127 20 148/90 (109) 95 Room Air 10/21/16 00:30 Room Air 10/20/16 23:48 36.9 138 18 144/91 (108) 91 Room Air 10/20/16 19:49 37.0 135 20 147/82 (103) 97 Room Air 10/20/16 16:00 Room Air 10/20/16 15:33 37.0 136 18 154/99 (117) 93 Room Air Physical Exam General Appearance: WD/WN, + mild distress Eyes: normal inspection, PERRL, EOMI, sclerae normal Neck: supple, no adenopathy, thyroid normal, no JVD Respiratory/Chest: chest non-tender, lungs clear, normal breath sounds, no respiratory distress Cardiovascular: no edema, no gallop, no murmur, + tachycardia Abdomen: normal bowel sounds, non tender, soft, no organomegaly Extremities: normal range of motion, non-tender, normal inspection, no pedal edema Neurologic/Psychiatric: no motor/sensory deficits, alert, normal mood/affect, oriented x 3 Skin: normal color, warm/dry, no rash Lymphatic: no adenopathy Laboratory Results Last 24 Hours Test 10/20/16 14:41 10/20/16 23:11 10/21/16 06:13 Magnesium Level 1.4 mg/dl Urine Color DK YELLOW Urine Appearance CLEAR Urine pH 5.0 Urine Specific [place] 1.039 Urine Protein TRACE Urine Glucose (UA) NEG Urine Ketones 1+ Urine Occult Blood NEG Urine Nitrite NEG Urine Bilirubin NEG Urine Urobilinogen NEG Urine Leukocyte Esterase NEG Urine WBC (Auto) 1-5 /hpf Urine RBC (Auto) 5-10 /hpf Urine Hyaline Casts (Auto) 5-10 /lpf Urine Epithelial Cells (Auto) >30 /lpf Urine Bacteria (Auto) NEG White Blood Count 16.54 K/uL Red Blood Count 2.69 M/uL Hemoglobin 7.8 g/dL Hematocrit 25.7 % Mean Corpuscular Volume 95.5 fL Mean Corpuscular Hemoglobin 29.0 pg Mean Corpuscular Hemoglobin Concent 30.4 g/dl Platelet Count 282 K/uL Mean Platelet Volume 9.1 fL Neutrophils (%) (Auto) 76.4 % Lymphocytes (%) (Auto) 7.0 % Monocytes (%) (Auto) 15.3 % Eosinophils (%) (Auto) 0.3 % Basophils (%) (Auto) 0.2 % Neutrophils # (Auto) 12.63 K/uL Lymphocytes # (Auto) 1.16 K/uL Monocytes # (Auto) 2.53 K/uL Eosinophils # (Auto) 0.05 K/uL Basophils # (Auto) 0.04 K/uL RDW Standard Deviation 70.8 fL RDW Coefficient of Variation 20.5 % Immature Granulocyte % (Auto) 0.8 % Immature Granulocyte # (Auto) 0.13 K/uL Anisocytosis PRESENT Prothrombin Time 14.3 SECONDS Prothromb Time International Ratio 1.3 Sodium Level 143 mmol/L Potassium Level 3.6 mmol/L Chloride Level 106 mmol/L Carbon Dioxide Level 28 mmol/L Anion Gap 9.0 mmol/L Blood Urea Nitrogen 9 mg/dl Creatinine 0.59 mg/dl Est Creatinine Clear Calc Drug Dose 111.7 ml/min Estimated GFR () 128.3 Estimated GFR (Non- 110.7 BUN/Creatinine Ratio 14.4 Random Glucose 96 mg/dl Calcium Level 7.1 mg/dl Assessment and Plan 46 yo F with PMHx of stage 4 cervical cancer with metastasis to pelvis, lung and spine currently undergoing chemotherapy, recently was hospitalized the beginning of this month for a RLE cellulitis with central ulcer with eschar and a RLE DVT placed on full dose anticoagulation. Pt is here with intractable pelvic and thigh pain. Cervical Cancer, stg 4, metastasis to pelvis, lung and spine - Admit to med/surg - Pt follow with Dr. Briggs as an outpatient, will consult oncology - was scheduled to start cycle 2 of chemotherapy today but cancelled this herself. It has been held 2 times d/t neutropenia. - Intractable pelvic and thigh pain may be related to new onset of pathologic fractures as seen on CT scan: 1. There are mild acute to subacute superior endplate compression fracture of T11, T12, L1, and L2. These are new from 08/23/2016. No large retropulsed fragments are identified. 2. Chronic compression deformities of L3 and L5 are similar to previous. 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 Will allow day team to decide if they want xray. - Palliative care consulted: A long discussion was held with the patient regarding code status while in the ED. She is agreeable to a DNR at this time. She however, is still wanting to go through with chemotherapy and attempt to get through this. Will ask palliative care and oncology to have a family meeting with the patient, since she seems to have limited/poor insight to her unfortunately poor prognosis. - Tachycardic secondary to pain -Spoke with oncology and palliative care, no further tx, rec hospice, will discuss with pt -Leukocytosis improving, blood cx pending, LE US neg for new acute DVT IVC thrombosis/ iliac vein thrombosis Hx RLE DVT - Dec lovenox to 80 mg once a day due to elev levels - INR 1.8- pt was administered 5 mg Vit K by ER RLE wound - Will consult wound Chronically elevated alk phos - Question if this is due to bone or liver metastasis - Will trend LFTs Hx hypomagnesemia - Will check mag due to poor oral intake, replace and trend if low - Continue mag-oxide tabs 400 BID Severe Protein calorie malnutrition - Boost TID along with regular diet, will consult nutrition - Albumin 1.5 - Continue marinol tablets BID for appetite stimulation - Cont MVI Hypothyroidism - Continue levothyroxine 150 mg daily Hx DM II - During last admission all blood glucose checks were normal. No need to place of ISS at this time. Trend glucose with am BMPs. Depression - Continue cymbalta 20 mg QAM DVT ppx: Lovenox 80 U Q12H CODE STATUS: FULL CODE
--- NOTE | 2016-10-21 12:14 | Oncology Consultation ---
Oncology/Heme Consultation Date of Consultation: Oct 21, 2016. Attending Physician: Richi Castro D.O. Reason for Consultation: Metastatic cervical cancer Intractable pain History of Present Illness Ms. Thomas is a 46 year old woman with advanced, metastatic cervical cancer. She has had a difficult time tolerating treatment and is suffering from intractable pain. She presented again 2 days ago with severe, worsening pain. She met with my partner, Dr. Kelly, and Flor from Palliative care and she is DNR with a plan to go home on hospice care. She is now admitted for care coordination and pain control. Her pain is around a 5 now, though it does respond to boluses from her [employer]. She denies any other major complaints and appears comfortable. Past Medical/Surgical History Medical Problems: (1) Anemia Status: Acute (2) Anemia Status: Acute (3) Cellulitis of right leg Status: Acute (4) Leukopenia Status: Acute (5) Metastatic disease Status: Acute (6) Peripheral edema Status: Acute Family History Cancer Diabetes mellitus Heart disease Hypertension Seizures Social History Smoking Status: Never Smoker Smokeless Tobacco Use: No Alcohol Use: none Drug Use: none Marital Status: single Occupation Status: disabled Allergies Coded Allergies: Sulfa Antibiotics (Verified Allergy, Intermediate, Skin Rash , 09/27/16) Home Medications Scheduled Cholecalciferol (Vitamin D3), 1 TAB PO DAILY Dronabinol (Dronabinol), 2.5 MG PO BID Duloxetine HCl (Duloxetine HCl), 20 MG PO QAM Enoxaparin (Lovenox), 80 MG SQ DAILY Fentanyl (Fentanyl), 100 MCG TD Q3D@0900 Fentanyl (Fentanyl), 25 MCG TD Q3D@0900 Levothyroxine Sodium (Synthroid), 150 MCG PO DAILYBB Magnesium Oxide (Magnesium-Oxide), 400 MG PO BID Multivitamin (Multivitamin), 1 TAB PO DAILY Potassium (Potassium), 1 TAB PO BID Sennosides (Senna Laxative), 1 TAB PO Q2D Scheduled PRN Ondansetron Hcl (Zofran), 8 MG PO Q8 PRN for Nausea Prochlorperazine Maleate (Compazine), 1 TAB PO Q6 PRN for Nausea or Vomiting Current Inpatient Medications Current Inpatient Medications Medications (Trade) Dose Ordered Sig/Janice Route Start Time Stop Time Status Last Admin Dose Admin Ioversol (Optiray 320) 125 ml UD PRN IV 10/19/16 11:45 10/23/16 11:44 Acetaminophen (Tylenol Tab) 650 mg Q4H PRN PO 10/19/16 17:00 11/18/16 16:59 Polyethylene (Miralax Powder Packet) 17 gm DAILY PRN PO 10/19/16 17:00 11/18/16 16:59 Cholecalciferol (Vitamin D Tab) 1,000 inter.unit DAILY PO 10/20/16 08:00 11/19/16 08:59 10/21/16 08:15 1,000 INTER.UNIT Duloxetine HCl (Cymbalta Cap) 20 mg QAM PO 10/20/16 08:00 11/19/16 08:59 10/21/16 08:13 20 MG Enoxaparin Sodium (Lovenox Inj) 80 mg PM SQ 10/20/16 21:00 11/19/16 20:59 10/20/16 20:49 80 MG Fentanyl (Duragesic Patch) 25 mcg Q3D@0900 TD 10/21/16 09:00 11/04/16 08:59 10/21/16 08:22 25 MCG Fentanyl (Duragesic Patch) 100 mcg Q3D@0900 TD 10/21/16 09:00 11/04/16 08:59 10/21/16 08:22 100 MCG Levothyroxine Sodium (Synthroid Tab) 150 mcg DAILYBB PO 10/20/16 06:30 11/19/16 06:59 10/21/16 06:02 150 MCG Magnesium Oxide (Mag-Ox Tab) 400 mg BID PO 10/19/16 20:57 11/18/16 20:59 10/21/16 08:13 400 MG Multivitamins (Multivitamin Tab) 1 tab DAILY PO 10/20/16 08:00 11/19/16 08:59 10/21/16 08:13 1 TAB Ondansetron HCl (Zofran Tab) 8 mg Q8 PRN PO 10/19/16 17:00 11/18/16 16:59 Prochlorperazine Maleate (Compazine Tab) 10 mg Q6 PRN PO 10/19/16 17:00 11/18/16 16:59 10/21/16 08:14 10 MG Senna (Senokot Tab) 8.6 mg Q2D@0900 PO 10/20/16 09:00 11/19/16 08:59 Dronabinol (Marinol Cap) 2.5 mg BID PO 10/20/16 08:00 11/19/16 07:59 10/21/16 08:21 2.5 MG Naloxone HCl (Narcan Inj) 0.1 mg Q5M PRN IV 10/19/16 17:00 11/02/16 16:59 Hydromorphone HCl (Dilaudid Process Control Board Operator) 25 mg PRN PRN IV 10/19/16 17:00 11/02/16 16:59 10/20/16 16:12 25 MG Sodium Chloride 1,000 ml @ 15 mls/hr Q24H IV 10/19/16 16:49 11/02/16 16:48 Sodium Chloride 1,000 ml @ 100 mls/hr Q10H IV 10/19/16 16:49 11/18/16 16:48 10/21/16 06:02 100 MLS/HR Hydromorphone HCl (Dilaudid Inj) 0.5 mg Q4 PRN IV 10/19/16 18:30 11/02/16 18:29 10/20/16 10:04 0.5 MG Hydromorphone HCl (Dilaudid Inj) 1 mg Q4 PRN IV 10/19/16 18:30 11/02/16 18:29 10/20/16 00:12 1 MG Ondansetron HCl (Zofran Inj) 4 mg Q4H PRN IV 10/20/16 03:15 11/19/16 03:14 10/20/16 03:19 4 MG Heparin Sodium (Porcine) (Heparin 100 Unit/ml 5ml Flush) 5 ml PRN PRN IV 10/20/16 03:15 11/19/16 03:14 Miscellaneous (Fentanyl Patch Remove & Waste) 1 ea Q3D@0859 N/A 10/21/16 08:59 11/20/16 08:58 10/21/16 08:22 1 EA Miscellaneous Information (Check Fentanyl Patch Placement) 1 ea QS N/A 10/20/16 08:00 11/19/16 07:59 10/21/16 08:15 1 EA Miscellaneous (Fentanyl Patch Remove & Waste) 1 ea Q3D@0859 N/A 10/21/16 08:59 11/20/16 08:58 10/21/16 08:28 1 EA Miscellaneous Information (Check Fentanyl Patch Placement) 1 ea QS N/A 10/20/16 08:00 11/19/16 07:59 10/21/16 08:12 1 EA Lidocaine (Lidoderm Patch 5%) 1 patch QAM TD 10/22/16 08:00 11/21/16 07:59 UNV Lidocaine (Lidoderm Patch 5%) 1 patch 1147 ONCE TD 10/21/16 11:47 10/21/16 11:48 UNV Miscellaneous (Remove Lidoderm Patch) 1 ea DAILY@21 N/A 10/21/16 21:00 11/20/16 20:59 UNV Review of Systems Constitutional: No fever Eyes: No worsening of vision Respiratory: No cough, No shortness of breath Cardiovascular: No chest pain Abdomen: No nausea, No vomiting Musculoskeletal: + joint pain, + muscle pain Hematologic / Lymphatic: No abnormal bleeding/bruising Integumentary: No rash Physical Exam Date Time Temp Pulse Resp B/P (MAP) Pulse Ox O2 Delivery O2 Flow Rate FiO2 10/21/16 08:32 Room Air 10/21/16 07:33 37.0 126 18 150/92 (111) 97 Room Air 10/21/16 04:07 36.8 127 20 148/90 (109) 95 Room Air 10/21/16 00:30 Room Air 10/20/16 23:48 36.9 138 18 144/91 (108) 91 Room Air 10/20/16 19:49 37.0 135 20 147/82 (103) 97 Room Air 10/20/16 16:00 Room Air 10/20/16 15:33 37.0 136 18 154/99 (117) 93 Room Air General Appearance: + cachetic (chronically ill) Eyes: EOMI Respiratory/Chest: lungs clear Cardiovascular: regular rate, rhythm Abdomen/GI: non tender, soft Extremities/Musculoskelatal: no pedal edema Neurologic/Psych: alert, oriented x 3 Skin: no rash Laboratory Results Last 24 Hours Test 10/20/16 14:41 10/20/16 23:11 10/21/16 06:13 Magnesium Level 1.4 mg/dl Urine Color DK YELLOW Urine Appearance CLEAR Urine pH 5.0 Urine Specific [place] 1.039 Urine Protein TRACE Urine Glucose (UA) NEG Urine Ketones 1+ Urine Occult Blood NEG Urine Nitrite NEG Urine Bilirubin NEG Urine Urobilinogen NEG Urine Leukocyte Esterase NEG Urine WBC (Auto) 1-5 /hpf Urine RBC (Auto) 5-10 /hpf Urine Hyaline Casts (Auto) 5-10 /lpf Urine Epithelial Cells (Auto) >30 /lpf Urine Bacteria (Auto) NEG White Blood Count 16.54 K/uL Red Blood Count 2.69 M/uL Hemoglobin 7.8 g/dL Hematocrit 25.7 % Mean Corpuscular Volume 95.5 fL Mean Corpuscular Hemoglobin 29.0 pg Mean Corpuscular Hemoglobin Concent 30.4 g/dl Platelet Count 282 K/uL Mean Platelet Volume 9.1 fL Neutrophils (%) (Auto) 76.4 % Lymphocytes (%) (Auto) 7.0 % Monocytes (%) (Auto) 15.3 % Eosinophils (%) (Auto) 0.3 % Basophils (%) (Auto) 0.2 % Neutrophils # (Auto) 12.63 K/uL Lymphocytes # (Auto) 1.16 K/uL Monocytes # (Auto) 2.53 K/uL Eosinophils # (Auto) 0.05 K/uL Basophils # (Auto) 0.04 K/uL RDW Standard Deviation 70.8 fL RDW Coefficient of Variation 20.5 % Immature Granulocyte % (Auto) 0.8 % Immature Granulocyte # (Auto) 0.13 K/uL Anisocytosis PRESENT Prothrombin Time 14.3 SECONDS Prothromb Time International Ratio 1.3 Sodium Level 143 mmol/L Potassium Level 3.6 mmol/L Chloride Level 106 mmol/L Carbon Dioxide Level 28 mmol/L Anion Gap 9.0 mmol/L Blood Urea Nitrogen 9 mg/dl Creatinine 0.59 mg/dl Est Creatinine Clear Calc Drug Dose 111.7 ml/min Estimated GFR () 128.3 Estimated GFR (Non- 110.7 BUN/Creatinine Ratio 14.4 Random Glucose 96 mg/dl Calcium Level 7.1 mg/dl Assessment & Plan Ms. Thomas has end-stage metastatic cervical cancer that has proven refractory to therapy. She is in a tremendous amount of pain and has been struggling as an outpatient. As a result, she was readmitted for intractable pain. She had a meeting with Dr. Kelly and palliative care yesterday. She is now DNR and is planning to go home with hospice care. The plan is for another family meeting on Sunday with her mother present to go over the specifics of her plan and to make final arrangements. In the meantime, we should continue with supportive care as needed. Palliative care is following to manage her [employer]. It sounds like she may need a dose adjustment, but I will defer to them. Dr. Kelly will return to see her on Sunday to continue her planning for hospice.
[2016-10-21] MEDS: HYDROmorphone HCL 0.5MG/ML 50 ML CASSETTE IV PRN (13:56)
[2016-10-21 15:19] VITALS: BP 141/91; PULSE 148; TEMP 36.9; O2SAT 91
[2016-10-21 19:30] VITALS: BP 145/91; PULSE 147; TEMP 37.3; O2SAT 90
[2016-10-21] MEDS: ENOXAPARIN 80 MG/0.8 ML SYR SQ SCH (20:42)
[2016-10-21 23:17] VITALS: BP 145/88; PULSE 140; TEMP 36.3; O2SAT 89
[2016-10-22] MEDS: SODIUM CHLORIDE 0.9% 1000ML 1,000 ML IV SCH ×4 (00:06→15:57)
[2016-10-22] MEDS: CHECK FENTANYL PATCH PLACEMENT SCH ×6 (00:06→15:57)
[2016-10-22] MEDS ORDERED: NURSING VERBAL MED ORDER ONE (00:30)
[2016-10-22 03:52] VITALS: BP 146/90; PULSE 132; TEMP 36.4; O2SAT 92
[2016-10-22] MEDS: LEVOTHYROXINE 150 MCG TAB PO SCH (05:57)
[2016-10-22 06:01] LABS: HEMATOCRIT 21.1 % (37-47); MEAN CELL VOLUME 95.5 fL (80-100); MEAN CORPUSCULAR HEMOGLOBIN 32.1 pg (25-34); MEAN CORPUSCULAR HGB CONC 33.6 g/dl (32-36); MEAN PLATELET VOLUME 8.9 fL (7.4-10.4); PLATELET COUNT 195 K/uL (130-400); RED BLOOD COUNT 2.21 M/uL (4.2-5.4); WHITE BLOOD COUNT 14.59 K/uL (4.8-10.8)
[2016-10-22 06:29] LABS: INR 1.3 (0.9-1.1); PROTHROMBIN TIME (PATIENT) 14.6 SECONDS (9.0-12.0)
[2016-10-22 07:14] VITALS: BP 137/91; PULSE 136; TEMP 36.4; O2SAT 97
[2016-10-22] MEDS: LIDODERM (LIDOCAINE) PATCH 5% TD SCH (08:00)
[2016-10-22] MEDS: DRONABINOL 2.5 MG CAP PO SCH ×2 (08:08→21:53)
[2016-10-22] MEDS: SENNA 8.6 MG TAB PO SCH (08:08)
[2016-10-22] MEDS: MAGNESIUM OXIDE 400 MG TAB PO SCH ×2 (08:09→21:54)
[2016-10-22] MEDS: MULTIVITAMIN TAB PO SCH (08:09)
[2016-10-22] MEDS: DULOXETINE HCL 20 MG CAP PO SCH (08:09)
[2016-10-22] MEDS: CHOLECALCIFEROL 1000 INTER.UNIT TAB PO SCH (08:09)
[2016-10-22 08:19] LABS: ANISOCYTOSIS PRESENT; COMPLETE YES; EOSINOPHIL % 0.9 %; LYMPH ABS # 0.64 K/uL (1.2-3.4); LYMPHOCYTE % 4.4 %; NEUTROPHILS % 83.3 %; TEAR DROP CELLS OCCASIONAL
--- NOTE | 2016-10-22 13:33 | Progress Note ---
Subjective Date of Service: Oct 22, 2016. Subjective Pt evaluation today including: conversation w/ patient, physical exam, chart review, lab review, review of studies, conversation w/ wellness consultant Resting comfortably in bed No concerns or acute events overnight Problem List Medical Problems: (1) Anemia Status: Acute (2) Anemia Status: Acute (3) Cellulitis of right leg Status: Acute (4) Leukopenia Status: Acute (5) Metastatic disease Status: Acute (6) Peripheral edema Status: Acute Review of Systems Constitutional: No fever, No chills, No sweats, No weight loss Eyes: No worsening of vision, No eye pain, No redness, No discharge Respiratory: No cough, No sputum, No wheezing, No shortness of breath, No dyspnea on exertion Cardiac: No chest pain, No orthopnea, No PND, No edema, No claudication Abdomen: No pain, No nausea, No vomiting, No diarrhea, No constipation Musculoskeletal: + joint pain, + muscle pain, + calf pain, No swelling Female : No dysuria, No urinary frequency, No hematuria, No incontinence Neurologic: No memory loss, No paralysis, No weakness, No numbness/tingling Psychiatric: No depression symptoms, No anhedonism, No anxiety, No insomnia Endo: No fatigue, No excessive thirst Skin: No rash, No itch Objective Vital Signs Date Time Temp Pulse Resp B/P (MAP) Pulse Ox O2 Delivery O2 Flow Rate FiO2 10/22/16 08:00 Room Air 10/22/16 07:14 36.4 136 20 137/91 (106) 97 Room Air 10/22/16 03:52 36.4 132 20 146/90 (108) 92 Room Air 10/22/16 00:55 Room Air 10/21/16 23:17 36.3 140 18 145/88 (107) 89 Room Air 10/21/16 20:00 Room Air 10/21/16 19:30 37.3 147 20 145/91 (109) 90 Room Air 10/21/16 16:00 Room Air 10/21/16 15:19 36.9 148 18 141/91 (108) 91 Room Air Physical Exam General Appearance: WD/WN, no apparent distress Eyes: normal inspection, PERRL, EOMI, sclerae normal Neck: supple, no adenopathy, thyroid normal, no JVD Respiratory/Chest: chest non-tender, lungs clear, normal breath sounds, no respiratory distress Cardiovascular: regular rate, rhythm, no edema, no gallop, no JVD Abdomen: normal bowel sounds, non tender, soft, no organomegaly Neurologic/Psychiatric: no motor/sensory deficits, alert, normal mood/affect, oriented x 3 Laboratory Results Last 24 Hours Test 10/22/16 05:47 White Blood Count 14.59 K/uL Red Blood Count 2.21 M/uL Hemoglobin 7.1 g/dL Hematocrit 21.1 % Mean Corpuscular Volume 95.5 fL Mean Corpuscular Hemoglobin 32.1 pg Mean Corpuscular Hemoglobin Concent 33.6 g/dl Platelet Count 195 K/uL Mean Platelet Volume 8.9 fL RDW Standard Deviation 71.3 fL RDW Coefficient of Variation 20.6 % Nucleated RBC Absolute Count (auto) 0.03 K/uL Neutrophils % (Manual) 83.3 % Lymphocytes % (Manual) 4.4 % Monocytes % (Manual) 11.4 % Eosinophils % (Manual) 0.9 % Nucleated Red Blood Cells % 0.2 % Neutrophils # (Manual) 12.15 K/uL Total Absolute Neutrophils 12.15 K/uL Lymphocytes # (Manual) 0.64 K/uL Total Absolute Lymphocytes 0.64 K/uL Monocytes # (Manual) 1.66 K/uL Eosinophils # (Manual) 0.13 K/uL Anisocytosis PRESENT Tear Drop Cells OCCASIONAL Prothrombin Time 14.6 SECONDS Prothromb Time International Ratio 1.3 Assessment and Plan 46 yo F with PMHx of stage 4 cervical cancer with metastasis to pelvis, lung and spine currently undergoing chemotherapy, recently was hospitalized the beginning of this month for a RLE cellulitis with central ulcer with eschar and a RLE DVT placed on full dose anticoagulation. Pt is here with intractable pelvic and thigh pain. Cervical Cancer, stg 4, metastasis to pelvis, lung and spine - Admit to med/surg - Pt follow with Dr. Kelly as an outpatient, will consult oncology - was scheduled to start cycle 2 of chemotherapy today but cancelled this herself. It has been held 2 times d/t neutropenia. - Intractable pelvic and thigh pain may be related to new onset of pathologic fractures as seen on CT scan: 1. There are mild acute to subacute superior endplate compression fracture of T11, T12, L1, and L2. These are new from 08/23/2016. No large retropulsed fragments are identified. 2. Chronic compression deformities of L3 and L5 are similar to previous. 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 Will allow day team to decide if they want xray. - Palliative care consulted: A long discussion was held with the patient regarding code status while in the ED. She is agreeable to a DNR at this time. She however, is still wanting to go through with chemotherapy and attempt to get through this. Will ask palliative care and oncology to have a family meeting with the patient, since she seems to have limited/poor insight to her unfortunately poor prognosis. - Tachycardic secondary to pain -Spoke with oncology and palliative care, no further tx, rec hospice, will discuss with pt -Leukocytosis improving, blood cx pending, LE US neg for new acute DVT IVC thrombosis/ iliac vein thrombosis Hx RLE DVT - Dec lovenox to 80 mg once a day due to elev levels - INR 1.8- pt was administered 5 mg Vit K by ER RLE wound - Will consult wound Chronically elevated alk phos - Question if this is due to bone or liver metastasis - Will trend LFTs Hx hypomagnesemia - Will check mag due to poor oral intake, replace and trend if low - Continue mag-oxide tabs 400 BID Severe Protein calorie malnutrition - Boost TID along with regular diet, will consult nutrition - Albumin 1.5 - Continue marinol tablets BID for appetite stimulation - Cont MVI Hypothyroidism - Continue levothyroxine 150 mg daily Hx DM II - During last admission all blood glucose checks were normal. No need to place of ISS at this time. Trend glucose with am BMPs. Depression - Continue cymbalta 20 mg QAM DVT ppx: Lovenox 80 U Q12H CODE STATUS: FULL CODE
[2016-10-22 15:23] VITALS: BP 144/87; PULSE 136; TEMP 36.9; O2SAT 92
[2016-10-22 20:00] VITALS: O2SAT 92
[2016-10-22 20:32] VITALS: BP 130/84; PULSE 139; TEMP 37; O2SAT 94
[2016-10-22] MEDS: ENOXAPARIN 80 MG/0.8 ML SYR SQ SCH (21:54)
[2016-10-22] MEDS: HYDROmorphone HCL 0.5MG/ML 50 ML CASSETTE IV PRN ×2 (23:20→23:59)
[2016-10-22 23:48] VITALS: BP 123/78; PULSE 138; TEMP 36.7; O2SAT 90
[2016-10-23] VITALS (19 sets, daily range): BP systolic 124–161; BP diastolic 66–100; PULSE 114–129; TEMP 36.1–36.9; O2SAT 90–98
[2016-10-23] MEDS: CHECK FENTANYL PATCH PLACEMENT SCH ×6 (00:02→16:39)
[2016-10-23] MEDS: LEVOTHYROXINE 150 MCG TAB PO SCH (06:04)
[2016-10-23] MEDS: HYDROmorphone HCL 0.5MG/ML 50 ML CASSETTE IV PRN ×2 (07:08→19:49)
[2016-10-23] MEDS: MAGNESIUM OXIDE 400 MG TAB PO SCH ×2 (08:51→19:58)
[2016-10-23] MEDS: DULOXETINE HCL 20 MG CAP PO SCH (08:51)
[2016-10-23] MEDS: MULTIVITAMIN TAB PO SCH (08:51)
[2016-10-23] MEDS: CHOLECALCIFEROL 1000 INTER.UNIT TAB PO SCH (08:51)
[2016-10-23] MEDS: LIDODERM (LIDOCAINE) PATCH 5% TD SCH (08:52)
[2016-10-23 08:53] LABS: HEMATOCRIT 19.1 % (37-47); MEAN CORPUSCULAR HEMOGLOBIN 31.5 pg (25-34); MEAN CORPUSCULAR HGB CONC 32.5 g/dl (32-36); PLATELET COUNT 178 K/uL (130-400); RED BLOOD COUNT 1.97 M/uL (4.2-5.4); WHITE BLOOD COUNT 10.49 K/uL (4.8-10.8)
[2016-10-23] MEDS: DRONABINOL 2.5 MG CAP PO SCH ×2 (09:01→19:57)
[2016-10-23 09:44] LABS: BASO ABS # 0.18 K/uL (0-0.2); BASOPHIL % 1.7 %; COMPLETE YES; EOSINOPHIL % 1.7 %; LYMPH ABS # 0.45 K/uL (1.2-3.4); LYMPHOCYTE % 4.3 %; MYELOCYTE % 0.9 %; NEUTROPHILS % 88.8 %
[2016-10-23] MEDS ORDERED: MAGNESIUM SULFATE 1GM / D5W 1 GM in PREMIXED IN D5W 100 ML IV ONE (09:45)
[2016-10-23] MEDS: SODIUM CHLORIDE 0.9% 1000ML 1,000 ML IV SCH ×4 (10:27→20:49)
--- NOTE | 2016-10-23 12:38 | Progress Note ---
Subjective Date of Service: Oct 23, 2016. Subjective Pt evaluation today including: conversation w/ patient, physical exam, chart review, lab review, review of studies, review of inpatient medication list Resting comfortably in bed States pain improved No concerns at this time Problem List Medical Problems: (1) Anemia Status: Acute (2) Anemia Status: Acute (3) Cellulitis of right leg Status: Acute (4) Leukopenia Status: Acute (5) Metastatic disease Status: Acute (6) Peripheral edema Status: Acute Review of Systems Constitutional: No fever, No chills, No sweats, No weight loss, No weakness Respiratory: No cough, No sputum, No wheezing, No shortness of breath, No dyspnea on exertion Cardiac: No chest pain, No orthopnea, No PND, No edema, No claudication Abdomen: No pain, No nausea, No vomiting, No diarrhea, No constipation Musculoskeletal: + joint pain, + muscle pain, + calf pain, No swelling Female : No dysuria, No urinary frequency, No hematuria, No incontinence Neurologic: No memory loss, No paralysis, No weakness, No numbness/tingling Psychiatric: No depression symptoms, No anhedonism, No anxiety, No insomnia Endo: No fatigue, No excessive thirst Skin: No rash, No itch Objective Vital Signs Date Time Temp Pulse Resp B/P (MAP) Pulse Ox O2 Delivery O2 Flow Rate FiO2 10/23/16 11:34 36.5 122 24 159/87 10/23/16 11:23 36.3 120 18 124/66 (85) 94 10/23/16 09:00 92 Room Air 10/23/16 07:59 36.8 126 18 161/90 (113) 92 Room Air 10/23/16 03:30 36.9 129 20 149/84 (105) 91 Room Air 10/22/16 23:48 36.7 138 18 123/78 (93) 90 Room Air 10/22/16 20:32 37.0 139 20 130/84 (99) 94 Room Air 10/22/16 20:00 92 Room Air 10/22/16 16:00 Room Air 10/22/16 15:23 36.9 136 18 144/87 (106) 92 Room Air Physical Exam General Appearance: WD/WN, + mild distress Eyes: normal inspection, PERRL, EOMI, sclerae normal Neck: supple, no adenopathy, thyroid normal, no JVD Respiratory/Chest: chest non-tender, lungs clear, normal breath sounds, no respiratory distress Cardiovascular: regular rate, rhythm, no edema, no gallop, no JVD Abdomen: normal bowel sounds, non tender, soft, no organomegaly Extremities: normal range of motion, non-tender, normal inspection, no pedal edema Neurologic/Psychiatric: no motor/sensory deficits, alert, normal mood/affect, oriented x 3 Laboratory Results Last 24 Hours Test 10/23/16 07:59 White Blood Count 10.49 K/uL Red Blood Count 1.97 M/uL Hemoglobin 6.2 g/dL Hematocrit 19.1 % Mean Corpuscular Volume 97.0 fL Mean Corpuscular Hemoglobin 31.5 pg Mean Corpuscular Hemoglobin Concent 32.5 g/dl Platelet Count 178 K/uL Mean Platelet Volume 9.0 fL RDW Standard Deviation 73.0 fL RDW Coefficient of Variation 21.1 % Neutrophils % (Manual) 88.8 % Lymphocytes % (Manual) 4.3 % Monocytes % (Manual) 2.6 % Eosinophils % (Manual) 1.7 % Basophils % (Manual) 1.7 % Myelocytes % 0.9 % Neutrophils # (Manual) 9.32 K/uL Total Absolute Neutrophils 9.32 K/uL Lymphocytes # (Manual) 0.45 K/uL Total Absolute Lymphocytes 0.45 K/uL Monocytes # (Manual) 0.27 K/uL Eosinophils # (Manual) 0.18 K/uL Basophils # (Manual) 0.18 K/uL Myelocytes # 0.09 K/uL Magnesium Level 1.2 mg/dl Assessment and Plan 46 yo F with PMHx of stage 4 cervical cancer with metastasis to pelvis, lung and spine currently undergoing chemotherapy, recently was hospitalized the beginning of this month for a RLE cellulitis with central ulcer with eschar and a RLE DVT placed on full dose anticoagulation. Pt is here with intractable pelvic and thigh pain. Cervical Cancer, stg 4, metastasis to pelvis, lung and spine - Admit to med/surg - Pt follow with Dr. Kelly as an outpatient, will consult oncology - was scheduled to start cycle 2 of chemotherapy today but cancelled this herself. It has been held 2 times d/t neutropenia. - Intractable pelvic and thigh pain may be related to new onset of pathologic fractures as seen on CT scan: 1. There are mild acute to subacute superior endplate compression fracture of T11, T12, L1, and L2. These are new from 08/23/2016. No large retropulsed fragments are identified. 2. Chronic compression deformities of L3 and L5 are similar to previous. 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 Will allow day team to decide if they want xray. - Palliative care consulted: A long discussion was held with the patient regarding code status while in the ED. She is agreeable to a DNR at this time. She however, is still wanting to go through with chemotherapy and attempt to get through this. Will ask palliative care and oncology to have a family meeting with the patient, since she seems to have limited/poor insight to her unfortunately poor prognosis. - Tachycardic secondary to pain -Spoke with oncology and palliative care, no further tx, rec hospice, will discuss with pt -Leukocytosis resolved, blood cx NGTD, LE US neg for new acute DVT Anemia of chronic disease Hg 6's on 10/23 agreeable for transfusion of 2 units PRBCs IVC thrombosis/ iliac vein thrombosis Hx RLE DVT - Dec lovenox to 80 mg once a day due to elev levels - INR 1.8- pt was administered 5 mg Vit K by ER RLE wound - Will consult wound Chronically elevated alk phos - Question if this is due to bone or liver metastasis - Will trend LFTs Hx hypomagnesemia - Will check mag due to poor oral intake, replace and trend if low - Continue mag-oxide tabs 400 BID Severe Protein calorie malnutrition - Boost TID along with regular diet, will consult nutrition - Continue marinol tablets BID for appetite stimulation - Cont MVI Hypothyroidism - Continue levothyroxine 150 mg daily Hx DM II - During last admission all blood glucose checks were normal. No need to place of ISS at this time. Trend glucose with am BMPs. Depression - Continue cymbalta 20 mg QAM DVT ppx: Lovenox 80 U Q12H CODE STATUS: FULL CODE
[2016-10-23] MEDS: HYDROmorphone INJ 1 MG/ML SYR IV PRN ×2 (13:14→16:44)
--- NOTE | 2016-10-23 16:10 | Palliative Care Progress Note ---
Palliative Care Progress Note Date of Service Oct 23, 2016. Subjective Pt evaluation today including: conversation w/ patient, conversation w/ family (mother, Flor, and father), chart review, conversation w/ portfolio consultant (Dr. Castro), review of inpatient medication list Pain: 5/10 PO Intake: tolerating diet Voiding: no voiding problems -Pain is 5/10 which was patient's goal. She has received 24mg Dilaudid in 24 hours, still has 125mcg/hr fentanyl patch. Patient doesn't want pain medication increased at this time. -Is not getting OOB very much now as it is too uncomfortable. -Receiving 2 units blood today for hgb 6. -Meeting held with myself, Dr. Castro, patient, patient's mother Flor, and patient's father. We discussed hospice and plan of care. Questions answered to the best of our ability. Review of Systems Constitutional: + weakness Respiratory: No cough, No shortness of breath Cardiac: + edema, No chest pain Abdomen: No pain, No nausea, No vomiting Female : No problem reported Psychiatric: + depression symptoms, No anxiety Objective Vital Signs Date Time Temp Pulse Resp B/P (MAP) Pulse Ox O2 Delivery O2 Flow Rate FiO2 10/23/16 15:06 Room Air 10/23/16 14:10 36.8 123 18 154/94 93 10/23/16 13:15 36.4 120 20 140/92 10/23/16 12:56 36.1 128 22 136/90 (105) 90 Room Air 10/23/16 12:40 36.1 128 20 136/90 10/23/16 12:10 36.9 115 20 140/84 95 10/23/16 11:55 36.2 126 22 140/88 93 10/23/16 11:34 36.5 122 24 159/87 10/23/16 11:23 36.3 120 18 124/66 (85) 94 10/23/16 09:00 92 Room Air 10/23/16 07:59 36.8 126 18 161/90 (113) 92 Room Air 10/23/16 03:30 36.9 129 20 149/84 (105) 91 Room Air 10/22/16 23:48 36.7 138 18 123/78 (93) 90 Room Air 10/22/16 20:32 37.0 139 20 130/84 (99) 94 Room Air 10/22/16 20:00 92 Room Air 10/22/16 16:00 Room Air Physical Exam General Appearance: no apparent distress, + pertinent finding (frail and chronically ill-appearing) ENT: hearing grossly normal Neck: supple, no JVD Respiratory/Chest: lungs clear, no respiratory distress, no accessory muscle use Cardiovascular: regular rate, rhythm, + pertinent finding (massive lower extremity edema) Abdomen: soft, + distended Neurologic/Psychiatric: alert, normal mood/affect, oriented x 3 Skin: + pallor Laboratory Results Last 24 Hours Test 10/23/16 07:59 White Blood Count 10.49 K/uL Red Blood Count 1.97 M/uL Hemoglobin 6.2 g/dL Hematocrit 19.1 % Mean Corpuscular Volume 97.0 fL Mean Corpuscular Hemoglobin 31.5 pg Mean Corpuscular Hemoglobin Concent 32.5 g/dl Platelet Count 178 K/uL Mean Platelet Volume 9.0 fL RDW Standard Deviation 73.0 fL RDW Coefficient of Variation 21.1 % Neutrophils % (Manual) 88.8 % Lymphocytes % (Manual) 4.3 % Monocytes % (Manual) 2.6 % Eosinophils % (Manual) 1.7 % Basophils % (Manual) 1.7 % Myelocytes % 0.9 % Neutrophils # (Manual) 9.32 K/uL Total Absolute Neutrophils 9.32 K/uL Lymphocytes # (Manual) 0.45 K/uL Total Absolute Lymphocytes 0.45 K/uL Monocytes # (Manual) 0.27 K/uL Eosinophils # (Manual) 0.18 K/uL Basophils # (Manual) 0.18 K/uL Myelocytes # 0.09 K/uL Magnesium Level 1.2 mg/dl Assessment and Plan Problem list: Pain, back and BLE- likely radicular pain from compression fracture. Pain is now shifting to different areas in the body. Metastatic ovarian cancer Right leg ulcer/wound Severe malnutrition Severe hypoalbuminemia- albumin 1.5 Poor performance status Hx DVT, PEs Goals of care (Z51.5) Palliative care plan: discussed with patient and family, Dr. Castro. Also updated leather case finisher. -Home with hospice with MANAGER MALL pump. -Continue at current dosage. Can increase continuous hydromorphone rate to 0.75mg/hr if needed. Keep intermittent MANAGER MALL dose at 0.5mg q10min as needed. -Patient would like to finish out her course of Lovenox. -Continue other meds. -Asked leather case finisher to follow up and help with logistics of hospice agency capabilities. -Patient and family questions were answered. Support given. Will follow as needed. Palliative Performance Scale: 40 % Discharge planning: home with Hospice
[2016-10-23] MEDS: ENOXAPARIN 80 MG/0.8 ML SYR SQ SCH (20:01)
[2016-10-23 21:03] LABS: HEMATOCRIT 28.7 % (37-47)
[2016-10-24] MEDS: CHECK FENTANYL PATCH PLACEMENT SCH ×8 (01:04→23:46)
[2016-10-24 03:46] VITALS: BP 116/75; PULSE 122; TEMP 36.7; O2SAT 93
[2016-10-24] MEDS: SODIUM CHLORIDE 0.9% 1000ML 1,000 ML IV SCH ×3 (05:10→15:29)
[2016-10-24 06:02] LABS: HEMATOCRIT 27.7 % (37-47); MEAN CELL VOLUME 90.5 fL (80-100); MEAN CORPUSCULAR HEMOGLOBIN 31.4 pg (25-34); MEAN CORPUSCULAR HGB CONC 34.7 g/dl (32-36); MEAN PLATELET VOLUME 9.4 fL (7.4-10.4); PLATELET COUNT 182 K/uL (130-400); RED BLOOD COUNT 3.06 M/uL (4.2-5.4); WHITE BLOOD COUNT 11.49 K/uL (4.8-10.8)
[2016-10-24] MEDS: LEVOTHYROXINE 150 MCG TAB PO SCH (06:11)
[2016-10-24 06:45] LABS: CREATININE 0.55 mg/dl (0.60-1.20)
[2016-10-24 07:17] VITALS: BP 123/80; PULSE 122; TEMP 36.5; O2SAT 92
[2016-10-24] MEDS: LIDODERM (LIDOCAINE) PATCH 5% TD SCH (08:00)
[2016-10-24] MEDS: MULTIVITAMIN TAB PO SCH (08:16)
[2016-10-24] MEDS: SENNA 8.6 MG TAB PO SCH (08:16)
[2016-10-24] MEDS: DRONABINOL 2.5 MG CAP PO SCH ×2 (08:16→19:58)
[2016-10-24] MEDS: DULOXETINE HCL 20 MG CAP PO SCH (08:17)
[2016-10-24] MEDS: MAGNESIUM OXIDE 400 MG TAB PO SCH ×2 (08:17→19:58)
[2016-10-24] MEDS: CHOLECALCIFEROL 1000 INTER.UNIT TAB PO SCH (08:17)
[2016-10-24] MEDS: FENTANYL 100 MCG/HR TDSY TD SCH (08:18)
[2016-10-24] MEDS: FENTANYL 25 MCG/HR TDSY TD SCH (08:20)
--- NOTE | 2016-10-24 08:30 | Hematology/Oncology Prog Note ---
Hematology/Onc Progress Note Date of Service Oct 24, 2016. Diagnoses Metastatic cervical cancer Intractable pain. Declining performance status. Cytopenias attributable to prior chemotherapy. Subjective Isabela is a pleasant but unfortunate 46-year-old patient well known to the cancer care partnership with the above diagnoses. She was admitted to hospital and is now on day #5 for pain management. Recently placed on Dilaudid pain pump which seems to be effective. Isabela is a bit more lethargic however conversant and appropriate. Appetite is been fair. Isabela has been seen by palliative care and according to the patient both her and family agreeable to outpatient hospice care. Isabela has also recently agreed to DO NOT RESUSCITATE/DO NOT INTUBATE status. Continues transfusional support. Nursing reports no overnight issues. Vital Signs Vital Signs Past 12 Hours Date Time Temp Pulse Resp B/P (MAP) Pulse Ox O2 Delivery O2 Flow Rate FiO2 10/24/16 07:17 36.5 122 16 123/80 (94) 92 Room Air 10/24/16 03:46 36.7 122 16 116/75 (89) 93 Room Air 10/24/16 00:00 Room Air 10/23/16 23:58 36.7 123 20 132/80 (97) 93 Room Air Physical Exam In general, cachectic-appearing 46-year-old female in no acute distress. HEENT. Oral mucosa without erythema or ulceration. Alopecia secondary to chemotherapy noted Neck. Supple Heart regular rate and rhythm Lungs clear to auscultation. Abdomen soft nontender nondistended Extremities 2+ peripheral edema bilaterally Neuro, lethargic but appropriate awake alert and oriented. Assessment & Plan 1. Failing performance status 2. Intractable pain. 3. Metastatic cervical cancer 4. Cytopenias attributable to chemotherapeutic effect. Isabela is a pleasant but unfortunate 46-year-old female patient at the end stages of her disease. Pain management is vastly improved with the incorporation of Dilaudid pain pump. She offers no specific complaints this morning, and again is agreeable to discharge and outpatient hospice care. Isabela understands no further chemotherapy will be administered. From medical oncology standpoint there is nothing further to be offered. Proceed with discharge as medically feasible. Will officially sign off however be more than happy to assist should the need arise.
[2016-10-24] MEDS: FENTANYL PATCH REMOVE & WASTE SCH ×2 (08:33)
--- NOTE | 2016-10-24 12:30 | Palliative Care Progress Note ---
Palliative Care Progress Note Date of Service Oct 24, 2016. Subjective Pt evaluation today including: conversation w/ patient, chart review, review of inpatient medication list Pain: 5/10 PO Intake: tolerating diet -Patient states, "I'm feeling better today. I slept pretty well last night." -Pain is still 5/10 which patient is comfortable with. She does not want her pain medicine increased at this time as she does not want to be any more lethargic. -No other complaints. Review of Systems Constitutional: + weakness ENT: No trouble swallowing Respiratory: No shortness of breath Cardiac: + edema, No chest pain Abdomen: + pain, No nausea, No vomiting Female : No problem reported Psychiatric: + depression symptoms (not worse), No anxiety Objective Vital Signs Date Time Temp Pulse Resp B/P (MAP) Pulse Ox O2 Delivery O2 Flow Rate FiO2 10/24/16 08:00 Room Air 10/24/16 07:17 36.5 122 16 123/80 (94) 92 Room Air 10/24/16 03:46 36.7 122 16 116/75 (89) 93 Room Air 10/24/16 00:00 Room Air 10/23/16 23:58 36.7 123 20 132/80 (97) 93 Room Air 10/23/16 20:00 Room Air 10/23/16 19:40 36.4 122 18 147/96 97 10/23/16 19:00 36.4 122 18 161/95 97 10/23/16 18:00 36.9 114 18 147/92 98 10/23/16 17:30 36.3 123 18 155/99 95 10/23/16 17:00 36.8 116 18 158/100 97 10/23/16 16:45 36.6 114 148/88 96 10/23/16 16:26 36.8 121 18 150/92 96 10/23/16 15:06 Room Air 10/23/16 14:10 36.8 123 18 154/94 93 10/23/16 13:15 36.4 120 20 140/92 10/23/16 12:56 36.1 128 22 136/90 (105) 90 Room Air 10/23/16 12:40 36.1 128 20 136/90 Physical Exam General Appearance: no apparent distress, + cachetic (upper body), + pertinent finding (frail and chronically ill-appearing) ENT: hearing grossly normal Neck: supple, no JVD Respiratory/Chest: no respiratory distress, no accessory muscle use Cardiovascular: + tachycardia, + normal peripheral pulses, + pertinent finding (massive lower extremity edema) Abdomen: soft, + distended Neurologic/Psychiatric: alert, normal mood/affect, oriented x 3 Skin: + pallor Laboratory Results Last 24 Hours Test 10/23/16 20:42 10/24/16 05:32 Hemoglobin 10.0 g/dL 9.6 g/dL Hematocrit 28.7 % 27.7 % White Blood Count 11.49 K/uL Red Blood Count 3.06 M/uL Mean Corpuscular Volume 90.5 fL Mean Corpuscular Hemoglobin 31.4 pg Mean Corpuscular Hemoglobin Concent 34.7 g/dl RDW Standard Deviation 60.5 fL RDW Coefficient of Variation 19.9 % Platelet Count 182 K/uL Mean Platelet Volume 9.4 fL Creatinine 0.55 mg/dl Est Creatinine Clear Calc Drug Dose 122.1 ml/min Estimated GFR () 131.3 Estimated GFR (Non- 113.3 Assessment and Plan Problem list: Pain, back and BLE- likely radicular pain from compression fracture. Pain is now shifting to different areas in the body. Metastatic ovarian cancer Right leg ulcer/wound Severe malnutrition Severe hypoalbuminemia- albumin 1.5 Poor performance status Hx DVT, PEs Goals of care (Z51.5) Palliative care plan: discussed with patient and family, Dr. Castro. Also updated case management social worker. -Home with hospice with BACTERIOLOGIST DAIRY pump. -Continue at current dosage. Can increase continuous hydromorphone rate to 0.75mg/hr if needed. Keep intermittent BACTERIOLOGIST DAIRY dose at 0.5mg q10min as needed. -Patient would like to finish out her course of Lovenox. -Continue other meds. -Asked case management social worker to follow up and help with logistics of hospice agency capabilities. Apparently [facility] is willing to accept. -Support given. Will follow as needed. Palliative Performance Scale: 30 % Discharge planning: home with Hospice
--- NOTE | 2016-10-24 14:29 | Progress Note ---
Subjective Date of Service: Oct 24, 2016. Subjective Pt evaluation today including: conversation w/ patient, physical exam, chart review, lab review, review of studies, review of inpatient medication list Resting comfortably in bed Reports improvement in pain in hip and left calf No concerns at this time Problem List Medical Problems: (1) Anemia Status: Acute (2) Anemia Status: Acute (3) Cellulitis of right leg Status: Acute (4) Leukopenia Status: Acute (5) Metastatic disease Status: Acute (6) Peripheral edema Status: Acute Review of Systems Constitutional: No fever, No chills Respiratory: No cough, No sputum, No wheezing, No shortness of breath, No dyspnea on exertion Cardiac: No chest pain, No orthopnea, No PND, No edema, No claudication Abdomen: No pain, No nausea, No vomiting, No diarrhea, No constipation Musculoskeletal: No joint pain, No muscle pain, No swelling, No calf pain Female : No dysuria, No urinary frequency, No hematuria, No incontinence Psychiatric: No depression symptoms, No anhedonism, No anxiety, No insomnia Endo: No fatigue, No excessive thirst Skin: No rash, No itch Objective Vital Signs Date Time Temp Pulse Resp B/P (MAP) Pulse Ox O2 Delivery O2 Flow Rate FiO2 10/24/16 08:00 Room Air 10/24/16 07:17 36.5 122 16 123/80 (94) 92 Room Air 10/24/16 03:46 36.7 122 16 116/75 (89) 93 Room Air 10/24/16 00:00 Room Air 10/23/16 23:58 36.7 123 20 132/80 (97) 93 Room Air 10/23/16 20:00 Room Air 10/23/16 19:40 36.4 122 18 147/96 97 10/23/16 19:00 36.4 122 18 161/95 97 10/23/16 18:00 36.9 114 18 147/92 98 10/23/16 17:30 36.3 123 18 155/99 95 10/23/16 17:00 36.8 116 18 158/100 97 10/23/16 16:45 36.6 114 148/88 96 10/23/16 16:26 36.8 121 18 150/92 96 10/23/16 15:06 Room Air Physical Exam General Appearance: WD/WN, no apparent distress Eyes: PERRL, EOMI, sclerae normal, funduscopic exam normal ENT: normal ENT inspection, hearing grossly normal, TMs normal, pharynx normal Neck: supple, no adenopathy, thyroid normal, no JVD Respiratory/Chest: chest non-tender, lungs clear, normal breath sounds, no respiratory distress Cardiovascular: regular rate, rhythm, no edema, no gallop, no JVD Abdomen: normal bowel sounds, non tender, soft, no organomegaly Extremities: normal range of motion, non-tender, normal inspection, no pedal edema Neurologic/Psychiatric: no motor/sensory deficits, alert, normal mood/affect, oriented x 3 Laboratory Results Last 24 Hours Test 10/23/16 20:42 10/24/16 05:32 Hemoglobin 10.0 g/dL 9.6 g/dL Hematocrit 28.7 % 27.7 % White Blood Count 11.49 K/uL Red Blood Count 3.06 M/uL Mean Corpuscular Volume 90.5 fL Mean Corpuscular Hemoglobin 31.4 pg Mean Corpuscular Hemoglobin Concent 34.7 g/dl RDW Standard Deviation 60.5 fL RDW Coefficient of Variation 19.9 % Platelet Count 182 K/uL Mean Platelet Volume 9.4 fL Creatinine 0.55 mg/dl Est Creatinine Clear Calc Drug Dose 122.1 ml/min Estimated GFR () 131.3 Estimated GFR (Non- 113.3 Assessment and Plan 46 yo F with PMHx of stage 4 cervical cancer with metastasis to pelvis, lung and spine currently undergoing chemotherapy, recently was hospitalized the beginning of this month for a RLE cellulitis with central ulcer with eschar and a RLE DVT placed on full dose anticoagulation. Pt is here with intractable pelvic and thigh pain. Cervical Cancer, stg 4, metastasis to pelvis, lung and spine - Admit to med/surg - Pt follow with Dr. Kelly as an outpatient, will consult oncology - was scheduled to start cycle 2 of chemotherapy today but cancelled this herself. It has been held 2 times d/t neutropenia. - Intractable pelvic and thigh pain may be related to new onset of pathologic fractures as seen on CT scan: 1. There are mild acute to subacute superior endplate compression fracture of T11, T12, L1, and L2. These are new from 08/23/2016. No large retropulsed fragments are identified. 2. Chronic compression deformities of L3 and L5 are similar to previous. 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 Will allow day team to decide if they want xray. - Palliative care consulted: A long discussion was held with the patient regarding code status while in the ED. She is agreeable to a DNR at this time. She however, is still wanting to go through with chemotherapy and attempt to get through this. Will ask palliative care and oncology to have a family meeting with the patient, since she seems to have limited/poor insight to her unfortunately poor prognosis. - Tachycardic secondary to pain -Spoke with oncology and palliative care, no further tx, family meeting on 10/23 - decided on home hospice at this time -Leukocytosis resolved, blood cx NGTD, LE US neg for new acute DVT Anemia of chronic disease Hg 6's on 10/23 agreeable for transfusion of 2 units PRBCs stable hg post transfusion IVC thrombosis/ iliac vein thrombosis Hx RLE DVT - Dec lovenox to 80 mg once a day due to elev levels - INR 1.8- pt was administered 5 mg Vit K by ER RLE wound - Will consult wound Chronically elevated alk phos - Question if this is due to bone or liver metastasis - Will trend LFTs Hx hypomagnesemia - Will check mag due to poor oral intake, replace and trend if low - Continue mag-oxide tabs 400 BID Severe Protein calorie malnutrition - Boost TID along with regular diet, will consult nutrition - Continue marinol tablets BID for appetite stimulation - Cont MVI Hypothyroidism - Continue levothyroxine 150 mg daily Hx DM II - During last admission all blood glucose checks were normal. No need to place of ISS at this time. Trend glucose with am BMPs. Depression - Continue cymbalta 20 mg QAM DVT ppx: Lovenox 80 U Q12H CODE STATUS: FULL CODE Discharge planning: home with Hospice
[2016-10-24 16:04] VITALS: BP 125/81; PULSE 125; TEMP 36.5; O2SAT 99
[2016-10-24] MEDS: HYDROmorphone HCL 0.5MG/ML 50 ML CASSETTE IV PRN ×2 (17:10→19:05)
[2016-10-24 19:21] VITALS: BP 124/86; PULSE 125; TEMP 36.8; O2SAT 95
[2016-10-24] MEDS: ENOXAPARIN 80 MG/0.8 ML SYR SQ SCH (19:59)
[2016-10-24 23:43] VITALS: BP 129/83; PULSE 122; TEMP 37; O2SAT 95
[2016-10-25] VITALS (7 sets, daily range): BP systolic 122–138; BP diastolic 80–88; PULSE 117–128; TEMP 36.4–36.9; O2SAT 93–97
[2016-10-25] MEDS: SODIUM CHLORIDE 0.9% 1000ML 1,000 ML IV SCH ×4 (01:19→21:31)
[2016-10-25] MEDS: ONDANSETRON INJ 2 MG/ML 2 ML VIAL IV PRN (03:03)
[2016-10-25] MEDS: LEVOTHYROXINE 150 MCG TAB PO SCH (06:24)
[2016-10-25] MEDS: CHOLECALCIFEROL 1000 INTER.UNIT TAB PO SCH (08:35)
[2016-10-25] MEDS: MAGNESIUM OXIDE 400 MG TAB PO SCH ×2 (08:35→21:33)
[2016-10-25] MEDS: DULOXETINE HCL 20 MG CAP PO SCH (08:36)
[2016-10-25] MEDS: MULTIVITAMIN TAB PO SCH (08:36)
[2016-10-25] MEDS: CHECK FENTANYL PATCH PLACEMENT SCH ×4 (08:36→16:00)
[2016-10-25] MEDS: LIDODERM (LIDOCAINE) PATCH 5% TD SCH (08:37)
[2016-10-25] MEDS: DRONABINOL 2.5 MG CAP PO SCH ×2 (08:42→21:32)
--- NOTE | 2016-10-25 14:10 | Progress Note ---
Subjective Date of Service: Oct 25, 2016. Subjective Pt evaluation today including: conversation w/ patient, physical exam, chart review, lab review, review of studies, review of inpatient medication list Pt resting comfortably in bed States pain improved in right hip and left calf No concerns at this time Awaiting discharge Problem List Medical Problems: (1) Anemia Status: Acute (2) Anemia Status: Acute (3) Cellulitis of right leg Status: Acute (4) Leukopenia Status: Acute (5) Metastatic disease Status: Acute (6) Peripheral edema Status: Acute Review of Systems Constitutional: No fever, No chills, No sweats, No weight loss ENT: No hearing loss, No unusual epistaxis, No nasal symptoms, No sore throat Respiratory: No cough, No sputum, No wheezing, No shortness of breath, No dyspnea on exertion Cardiac: No chest pain, No orthopnea, No PND, No edema, No claudication Abdomen: No pain, No nausea, No vomiting, No diarrhea, No constipation Musculoskeletal: + joint pain, No muscle pain, No swelling, No calf pain Female : No dysuria, No urinary frequency, No hematuria, No incontinence Neurologic: No memory loss, No paralysis, No weakness, No numbness/tingling, No vertigo Psychiatric: No depression symptoms, No anhedonism, No anxiety, No insomnia Endo: No fatigue, No excessive thirst Skin: No rash, No itch Objective Vital Signs Date Time Temp Pulse Resp B/P (MAP) Pulse Ox O2 Delivery O2 Flow Rate FiO2 10/25/16 11:21 36.4 119 16 122/80 (94) 94 Room Air 10/25/16 08:40 93 Room Air 10/25/16 07:19 36.4 124 16 129/83 (98) 93 Room Air 10/25/16 04:10 36.9 117 20 138/88 (105) 97 Room Air 10/24/16 23:43 37.0 122 20 129/83 (98) 95 Room Air 10/24/16 19:25 Room Air 10/24/16 19:21 36.8 125 20 124/86 (99) 95 Room Air 10/24/16 16:04 36.5 125 18 125/81 (96) 99 Room Air 10/24/16 16:00 Room Air Physical Exam General Appearance: WD/WN, no apparent distress Eyes: normal inspection, PERRL, EOMI, sclerae normal Neck: supple, no adenopathy, thyroid normal, no JVD Respiratory/Chest: chest non-tender, lungs clear, normal breath sounds, no respiratory distress Cardiovascular: regular rate, rhythm, no edema, no gallop, no JVD Abdomen: normal bowel sounds, non tender, soft, no organomegaly Neurologic/Psychiatric: no motor/sensory deficits, alert, normal mood/affect, oriented x 3 Skin: normal color, warm/dry, no rash Lymphatic: no adenopathy Laboratory Results Last 24 Hours Test 10/25/16 01:25 Heparin Anti-Xa Act, Low Molec Wt 0.43 IU/ML Assessment and Plan 46 yo F with PMHx of stage 4 cervical cancer with metastasis to pelvis, lung and spine currently undergoing chemotherapy, recently was hospitalized the beginning of this month for a RLE cellulitis with central ulcer with eschar and a RLE DVT placed on full dose anticoagulation. Pt is here with intractable pelvic and thigh pain. Cervical Cancer, stg 4, metastasis to pelvis, lung and spine - Admit to med/surg - Pt follow with Dr. Kelly as an outpatient, will consult oncology - was scheduled to start cycle 2 of chemotherapy today but cancelled this herself. It has been held 2 times d/t neutropenia. - Intractable pelvic and thigh pain may be related to new onset of pathologic fractures as seen on CT scan: 1. There are mild acute to subacute superior endplate compression fracture of T11, T12, L1, and L2. These are new from 08/23/2016. No large retropulsed fragments are identified. 2. Chronic compression deformities of L3 and L5 are similar to previous. - Will start dilaudid FOURTH HAND for analgesia, continue on her home dosing of fentanyl patch 125 mcg Q3D - The pt may have pathological fx of long bone below the knee as she is describing and acute onset of pain with standing a few days ago- treatment would be pain control since she would not be a surgical candidate even if fx was identified. Will allow day team to decide if they want xray. - Palliative care consulted: A long discussion was held with the patient regarding code status while in the ED. She is agreeable to a DNR at this time. She however, is still wanting to go through with chemotherapy and attempt to get through this. Will ask palliative care and oncology to have a family meeting with the patient, since she seems to have limited/poor insight to her unfortunately poor prognosis. - Tachycardic secondary to pain -Spoke with oncology and palliative care, no further tx, family meeting on 10/23 - decided on home hospice at this time, awaiting home hospice to be set up -Pt would like to cont lovenox for DVT tx -Leukocytosis resolved, blood cx NGTD, LE US neg for new acute DVT Anemia of chronic disease Hg 6's on 10/23 agreeable for transfusion of 2 units PRBCs stable hg post transfusion IVC thrombosis/ iliac vein thrombosis Hx RLE DVT - Dec lovenox to 80 mg once a day due to elev levels - INR 1.8- pt was administered 5 mg Vit K by ER RLE wound - Will consult wound Chronically elevated alk phos - Question if this is due to bone or liver metastasis - Will trend LFTs Hx hypomagnesemia - Will check mag due to poor oral intake, replace and trend if low - Continue mag-oxide tabs 400 BID Severe Protein calorie malnutrition - Boost TID along with regular diet, will consult nutrition - Continue marinol tablets BID for appetite stimulation - Cont MVI Hypothyroidism - Continue levothyroxine 150 mg daily Hx DM II - During last admission all blood glucose checks were normal. No need to place of ISS at this time. Trend glucose with am BMPs. Depression - Continue cymbalta 20 mg QAM DVT ppx: Lovenox 80 U once daily CODE STATUS: FULL CODE Discharge planning: home with Hospice
--- NOTE | 2016-10-25 16:04 | Palliative Care Progress Note ---
Palliative Care Progress Note Date of Service Oct 25, 2016. Subjective Pt evaluation today including: conversation w/ patient, conversation w/ family (left voicemail for patient's mother, Flor Weathers) Pain: 4-5/10 PO Intake: tolerating diet Quick visit to meet with patient and mom. Answered questions about IMPLEMENTATION SPECIALIST PAYROLL pump, hospice, what to expect, etc. I did recommend a Woodson catheter since patient is no longer able to ambulate/ get OOB. She said, "absolutely not." I encouraged her and her mother to think about this in the future if it becomes too difficult to use bedpan or if skin breakdown occurs. Patient's pain is managed and tolerable today at 4/10. Assessment and Plan Problem list: Pain, back and BLE- likely radicular pain from compression fracture. Pain is now shifting to different areas in the body. Metastatic ovarian cancer Right leg ulcer/wound Severe malnutrition Severe hypoalbuminemia- albumin 1.5 Poor performance status Hx DVT, PEs Goals of care (Z51.5) Palliative care plan: discussed with patient and family, Dr. Castro. Also updated case fitter. -Home with hospice with IMPLEMENTATION SPECIALIST PAYROLL pump. -Continue at current dosage. Can increase continuous hydromorphone rate to 0.75mg/hr if needed. Keep intermittent IMPLEMENTATION SPECIALIST PAYROLL dose at 0.5mg q10min as needed. -Patient would like to finish out her course of Lovenox. -Continue other meds. -Possibly home with [facility] hospice. Case management following. Will follow as needed. Palliative Performance Scale: 30 % Discharge planning: home with Hospice
[2016-10-25] MEDS: ENOXAPARIN 80 MG/0.8 ML SYR SQ SCH (21:34)
[2016-10-26] MEDS: CHECK FENTANYL PATCH PLACEMENT SCH ×6 (00:52→16:37)
[2016-10-26 03:57] VITALS: BP 123/83; PULSE 120; TEMP 36.6; O2SAT 94
[2016-10-26] MEDS: HYDROmorphone HCL 0.5MG/ML 50 ML CASSETTE IV PRN (06:26)
[2016-10-26] MEDS: LEVOTHYROXINE 150 MCG TAB PO SCH (06:28)
[2016-10-26 07:32] VITALS: BP 124/77; PULSE 121; TEMP 36.5; O2SAT 96
[2016-10-26 08:30] VITALS: O2SAT 96
[2016-10-26] MEDS: SODIUM CHLORIDE 0.9% 1000ML 1,000 ML IV SCH ×3 (08:37→18:04)
[2016-10-26] MEDS: MULTIVITAMIN TAB PO SCH (08:37)
[2016-10-26] MEDS: MAGNESIUM OXIDE 400 MG TAB PO SCH ×2 (08:37→20:07)
[2016-10-26] MEDS: DULOXETINE HCL 20 MG CAP PO SCH (08:37)
[2016-10-26] MEDS: CHOLECALCIFEROL 1000 INTER.UNIT TAB PO SCH (08:38)
[2016-10-26] MEDS: DRONABINOL 2.5 MG CAP PO SCH ×2 (08:45→20:07)
[2016-10-26] MEDS: LIDODERM (LIDOCAINE) PATCH 5% TD SCH (08:45)
[2016-10-26] MEDS: SENNA 8.6 MG TAB PO SCH (08:46)
[2016-10-26 11:40] VITALS: BP 120/74; PULSE 122; TEMP 36.6; O2SAT 97
--- NOTE | 2016-10-26 15:12 | Progress Note ---
Subjective Date of Service: Oct 26, 2016. Subjective Pt evaluation today including: conversation w/ patient, physical exam, chart review, lab review, review of studies, review of inpatient medication list Resting comfortably in bed No complaints at this time Problem List Medical Problems: (1) Anemia Status: Acute (2) Anemia Status: Acute (3) Cellulitis of right leg Status: Acute (4) Leukopenia Status: Acute (5) Metastatic disease Status: Acute (6) Peripheral edema Status: Acute Review of Systems Constitutional: No fever, No chills, No sweats, No weight loss, No weakness Eyes: No worsening of vision, No eye pain, No redness, No discharge ENT: No hearing loss, No unusual epistaxis, No nasal symptoms, No sore throat Respiratory: No cough, No sputum, No wheezing, No shortness of breath, No dyspnea on exertion Cardiac: + edema, No chest pain, No orthopnea, No PND Abdomen: No pain, No nausea, No vomiting, No diarrhea, No constipation Musculoskeletal: + joint pain, No muscle pain, No swelling Female : No dysuria, No urinary frequency, No hematuria, No incontinence Neurologic: No memory loss, No paralysis, No weakness, No numbness/tingling Psychiatric: No depression symptoms, No anhedonism, No anxiety, No insomnia Endo: No fatigue, No excessive thirst Skin: No rash, No itch Objective Vital Signs Date Time Temp Pulse Resp B/P (MAP) Pulse Ox O2 Delivery O2 Flow Rate FiO2 10/26/16 11:40 36.6 122 20 120/74 (89) 97 10/26/16 08:30 96 Room Air 10/26/16 07:32 36.5 121 16 124/77 (93) 96 Room Air 10/26/16 03:57 36.6 120 18 123/83 (96) 94 Room Air 10/26/16 00:00 Room Air 10/25/16 23:10 36.6 128 18 123/83 (96) 94 Room Air 10/25/16 20:00 Room Air 10/25/16 19:23 36.9 126 16 131/87 (102) 94 Room Air 10/25/16 16:01 Room Air 10/25/16 15:14 36.7 126 18 125/82 (96) 94 Room Air Physical Exam General Appearance: WD/WN, no apparent distress Eyes: normal inspection, PERRL, EOMI, sclerae normal Neck: supple, no adenopathy, thyroid normal, no JVD Respiratory/Chest: chest non-tender, lungs clear, normal breath sounds, no respiratory distress Cardiovascular: no edema, no gallop, no JVD, + tachycardia Abdomen: normal bowel sounds, non tender, soft Extremities: non-tender, normal inspection, + pedal edema Neurologic/Psychiatric: no motor/sensory deficits, alert, normal mood/affect, oriented x 3 Assessment and Plan 46 yo F with PMHx of stage 4 cervical cancer with metastasis to pelvis, lung and spine currently undergoing chemotherapy, recently was hospitalized the beginning of this month for a RLE cellulitis with central ulcer with eschar and a RLE DVT placed on full dose anticoagulation. Pt is here with intractable pelvic and thigh pain. Cervical Cancer, stg 4, metastasis to pelvis, lung and spine - Admit to med/surg - Pt follow with Dr. Kelly as an outpatient, will consult oncology - was scheduled to start cycle 2 of chemotherapy today but cancelled this herself. It has been held 2 times d/t neutropenia. - Intractable pelvic and thigh pain may be related to new onset of pathologic fractures as seen on CT scan: 1. There are mild acute to subacute superior endplate compression fracture of T11, T12, L1, and L2. These are new from 08/23/2016. No large retropulsed fragments are identified. 2. Chronic compression deformities of L3 and L5 are similar to previous. 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 Will allow day team to decide if they want xray. - Palliative care consulted: A long discussion was held with the patient regarding code status while in the ED. She is agreeable to a DNR at this time. She however, is still wanting to go through with chemotherapy and attempt to get through this. Will ask palliative care and oncology to have a family meeting with the patient, since she seems to have limited/poor insight to her unfortunately poor prognosis. - Tachycardic secondary to pain -Spoke with oncology and palliative care, no further tx, family meeting on 10/23 - decided on home hospice at this time, awaiting home hospice to be set up -Pt would like to cont lovenox for DVT tx -Leukocytosis resolved, blood cx NGTD, LE US neg for new acute DVT Anemia of chronic disease Hg 6's on 10/23 agreeable for transfusion of 2 units PRBCs stable hg post transfusion IVC thrombosis/ iliac vein thrombosis Hx RLE DVT - Dec lovenox to 80 mg once a day due to elev levels - INR 1.8- pt was administered 5 mg Vit K by ER RLE wound - Will consult wound Chronically elevated alk phos - Question if this is due to bone or liver metastasis - Will trend LFTs Hx hypomagnesemia - Will check mag due to poor oral intake, replace and trend if low - Continue mag-oxide tabs 400 BID Severe Protein calorie malnutrition - Boost TID along with regular diet, will consult nutrition - Continue marinol tablets BID for appetite stimulation - Cont MVI Hypothyroidism - Continue levothyroxine 150 mg daily Hx DM II - During last admission all blood glucose checks were normal. No need to place of ISS at this time. Trend glucose with am BMPs. Depression - Continue cymbalta 20 mg QAM DVT ppx: Lovenox 80 U once daily CODE STATUS: FULL CODE Discharge planning: home with Hospice
[2016-10-26 16:09] VITALS: BP 131/82; PULSE 116; TEMP 36.4; O2SAT 96
[2016-10-26 19:19] VITALS: BP 132/83; PULSE 117; TEMP 36.5; O2SAT 97
[2016-10-26] MEDS: ENOXAPARIN 80 MG/0.8 ML SYR SQ SCH (20:08)
[2016-10-27 00:21] VITALS: BP 119/77; PULSE 123; TEMP 36.8; O2SAT 94
[2016-10-27] MEDS: CHECK FENTANYL PATCH PLACEMENT SCH ×4 (01:39→08:24)
[2016-10-27] MEDS: SODIUM CHLORIDE 0.9% 1000ML 1,000 ML IV SCH (04:02)
[2016-10-27 04:30] VITALS: BP 135/89; PULSE 120; TEMP 36.5; O2SAT 92
[2016-10-27 06:23] LABS: HEMATOCRIT 26.4 % (37-47); MEAN CORPUSCULAR HEMOGLOBIN 30.2 pg (25-34); MEAN CORPUSCULAR HGB CONC 32.2 g/dl (32-36); MEAN PLATELET VOLUME 9.8 fL (7.4-10.4); PLATELET COUNT 208 K/uL (130-400); RED BLOOD COUNT 2.81 M/uL (4.2-5.4); WHITE BLOOD COUNT 8.88 K/uL (4.8-10.8)
[2016-10-27] MEDS: LEVOTHYROXINE 150 MCG TAB PO SCH ×2 (06:44→08:25)
[2016-10-27 06:55] LABS: CREATININE 0.49 mg/dl (0.60-1.20)
[2016-10-27 07:38] VITALS: BP 123/78; PULSE 121; TEMP 36.3; O2SAT 94
[2016-10-27] MEDS: DRONABINOL 2.5 MG CAP PO SCH (08:20)
[2016-10-27] MEDS: FENTANYL 100 MCG/HR TDSY TD SCH (08:21)
[2016-10-27] MEDS: FENTANYL 25 MCG/HR TDSY TD SCH (08:21)
[2016-10-27] MEDS: FENTANYL PATCH REMOVE & WASTE SCH ×2 (08:22→08:23)
[2016-10-27] MEDS: MULTIVITAMIN TAB PO SCH (08:23)
[2016-10-27] MEDS: CHOLECALCIFEROL 1000 INTER.UNIT TAB PO SCH (08:23)
[2016-10-27] MEDS: MAGNESIUM OXIDE 400 MG TAB PO SCH (08:23)
[2016-10-27] MEDS: DULOXETINE HCL 20 MG CAP PO SCH (08:23)
[2016-10-27] MEDS: LIDODERM (LIDOCAINE) PATCH 5% TD SCH (08:41)
[2016-10-27 11:39] VITALS: BP 108/69; PULSE 117; TEMP 36.3; O2SAT 95
[2016-10-27] MEDS ORDERED: DLD25PCA IV (12:05)
--- NOTE | 2016-10-27 12:08 | Discharge Instructions ---
Discharge Instructions Date of Service Oct 27, 2016. Admission Reason for Admission: Pelvic Pain Discharge Discharge Diagnosis / Problem: Stage 4 cervical cancer, intractable pain Discharge Goals Goal(s): Decrease discomfort, Improve function, Increase independence, Improve disease control, Improve nutritional status, Learn about illness, Diagnostic testing Activity Recommendations Activity Limitations: resume your previous activity . Instructions / Follow-Up Instructions / Follow-Up Patient to be discharged home with home hospice Please use dilaudid pump 0.5 mg/hr continuous and 0.5 mg q 20 min for worsening pain Can continue with fentanyl patches 125 mcg to apply every 3 days Also to continue to lovenox 80 mg subcutaneously once daily Will follow up with Dr Kelly in 1-2 weeks Current Hospital Diet Patient's current hospital diet: Regular Diet Discharge Diet Recommended Diet: Regular Diet Pending Studies Studies pending at discharge: no Medical Emergencies . Who to Call and When: Medical Emergencies: If at any time you feel your situation is an emergency, please call 911 immediately. . Non-Emergent Contact Non-Emergency issues call your: Primary Care Provider Call Non-Emergent contact if: your pain is worsening . . "Provider Documentation" section prepared by Richi Castro. . VTE Core Measure Inpt VTE Proph given/why not?: Enoxaparin (Lovenox)SQ
[2016-10-27 13:01] VITALS: BP 108/69; PULSE 117; TEMP 36.3; O2SAT 95
[2016-10-27] MEDS: HYDROmorphone INJ 1 MG/ML SYR IV PRN (15:10)
--- NOTE | 2016-10-27 16:16 | Discharge Summary ---
Discharge Summary Date of Service Oct 27, 2016. Discharge Summary Admission Date: Oct 19, 2016 at 16:59 Discharge Date: Oct 27, 2016 Discharge Disposition: Home with services (home hospice) Principal Diagnosis: Cervical cancer stage 4 Immunizations: Have You Had Influenza Vaccine: Yes History of Tetanus Vaccine?: Yes History of Pneumococcal: No History of Hepatitis B Vaccine: Unknown Consultations: Oncology Palliative Care Medication Reconciliation New Medications: Hydromorphone HCl (Hydromorphone HCl) 0.5 Mg/Ml Inj 25 MG IV PRN PRN for Pain for 30 Days Continued Medications: Cholecalciferol (Vitamin D3) 1,000 Unit Tab 1 TAB PO DAILY for 30 Days, #30 TAB 5 Refills Dronabinol (Dronabinol) 2.5 Mg Cap 2.5 MG PO BID Duloxetine HCl (Duloxetine HCl) 20 Mg Cap 20 MG PO QAM for 30 Days, #30 CAP Enoxaparin (Lovenox) 80 Mg/0.8 Ml Inj 80 MG SQ DAILY, SYR Fentanyl (Fentanyl) 100 Mcg Tdsy 100 MCG TD Q3D@0900 for 30 Days, #10 PATCH Fentanyl (Fentanyl) 25 Mcg Tdsy 25 MCG TD Q3D@0900 for 30 Days, #10 PATCH Levothyroxine Sodium (Synthroid) 150 Mcg Tab 150 MCG PO DAILYBB for 30 Days, #30 TAB Magnesium Oxide (Magnesium-Oxide) 400 Mg Tab 400 MG PO BID for 30 Days, #60 TAB Multivitamin (Multivitamin) Tab 1 TAB PO DAILY, TAB Ondansetron Hcl (Zofran) 8 Mg Tab 8 MG PO Q8 PRN for Nausea, TAB Potassium (Potassium) Unknown Strength Tab 1 TAB PO BID Prochlorperazine Maleate (Compazine) 10 Mg Tab 1 TAB PO Q6 PRN for Nausea or Vomiting for 7 Days, #30 TAB 3 Refills Sennosides (Senna Laxative) 8.6 Mg Tab 1 TAB PO Q2D Discharge Exam Review of Systems: Constitutional: No fever, No chills, No sweats, No weakness Eyes: No worsening of vision, No eye pain, No redness, No discharge ENT: No hearing loss, No unusual epistaxis, No nasal symptoms, No sore throat Respiratory: No cough, No sputum, No wheezing, No shortness of breath Cardiovascular: No chest pain, No orthopnea, No PND, No edema Abdomen: No pain, No nausea, No vomiting, No diarrhea Musculoskeletal: + joint pain, + muscle pain, + calf pain, No swelling Genitourinary - Female: No dysuria, No urinary frequency, No urinary urgency , No urinary incontinence Neurologic: No memory loss, No paralysis, No weakness, No numbness/tingling Psychiatric: No depression symptoms, No anhedonism, No anxiety, No insomnia Hematologic / Lymphatic: No abnormal bleeding/bruising, No clotting problems Integumentary: No rash, No itch Physical Exam: General Appearance: WD/WN, no apparent distress Eyes: normal inspection, PERRL, EOMI, sclerae normal ENT: normal ENT inspection, hearing grossly normal, TMs normal, pharynx normal Neck: supple, no adenopathy, thyroid normal, no JVD Respiratory/Chest: chest non-tender, lungs clear, normal breath sounds, no respiratory distress Cardiovascular: regular rate, rhythm, no edema, no gallop, no JVD Abdomen / GI: normal bowel sounds, non tender, soft, no organomegaly Extremities: normal inspection, no calf tenderness, normal capillary refill , no pedal edema Neurologic/Psychiatric: no motor/sensory deficits, alert, normal mood/affect , normal reflexes, oriented x 3 Skin: normal color, warm/dry, no rash Lymphatic: no adenopathy Hospital Course 46 yo F with PMHx of stage 4 cervical cancer with metastasis to pelvis, lung and spine currently undergoing chemotherapy, recently was hospitalized the beginning of this month for a RLE cellulitis with central ulcer with eschar and a RLE DVT placed on full dose anticoagulation. Pt is here with intractable pelvic and thigh pain. Cervical Cancer, stg 4, metastasis to pelvis, lung and spine - Admit to med/surg - Pt follow with Dr. Kelly as an outpatient, will consult oncology - was scheduled to start cycle 2 of chemotherapy today but cancelled this herself. It has been held 2 times d/t neutropenia. - Intractable pelvic and thigh pain may be related to new onset of pathologic fractures as seen on CT scan: 1. There are mild acute to subacute superior endplate compression fracture of T11, T12, L1, and L2. These are new from 08/23/2016. No large retropulsed fragments are identified. 2. Chronic compression deformities of L3 and L5 are similar to previous. 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 Will allow day team to decide if they want xray. - Palliative care consulted: A long discussion was held with the patient regarding code status while in the ED. She is agreeable to a DNR at this time. She however, is still wanting to go through with chemotherapy and attempt to get through this. Will ask palliative care and oncology to have a family meeting with the patient, since she seems to have limited/poor insight to her unfortunately poor prognosis. - Tachycardic secondary to pain -Spoke with oncology and palliative care, no further tx, family meeting on 10/23 - decided on home hospice at this time -Pt would like to cont lovenox for DVT tx -Leukocytosis resolved, blood cx NGTD, LE US neg for new acute DVT, DC with home hospice on dilaudid pump, F/U with Dr Kelly Anemia of chronic disease Hg 6's on 10/23 agreeable for transfusion of 2 units PRBCs stable hg post transfusion IVC thrombosis/ iliac vein thrombosis Hx RLE DVT - Dec lovenox to 80 mg once a day due to elev levels - INR 1.8- pt was administered 5 mg Vit K by ER RLE wound - Will consult wound Chronically elevated alk phos - Question if this is due to bone or liver metastasis - Will trend LFTs Hx hypomagnesemia - Will check mag due to poor oral intake, replace and trend if low - Continue mag-oxide tabs 400 BID Severe Protein calorie malnutrition - Boost TID along with regular diet, will consult nutrition - Continue marinol tablets BID for appetite stimulation - Cont MVI Hypothyroidism - Continue levothyroxine 150 mg daily Hx DM II - During last admission all blood glucose checks were normal. No need to place of ISS at this time. Trend glucose with am BMPs. Depression - Continue cymbalta 20 mg QAM DVT ppx: Lovenox 80 U once daily Total Time Spent: Greater than 30 minutes This includes examination of the patient, discharge planning, medication reconciliation, and communication with other providers. Discharge Instructions Please refer to the electronic Patient Visit Report (Discharge Instructions) for additional information. Additional Copies To Dejuan Bailey M.D.
--- NOTE | 2016-11-01 12:06 | EDITING REQUIRED CODING QUERY ---
CODING QUERY To promote full compliance with coding requirements relating to patient care, provider participation is requested in all cases of hospital pharmacist uncertainty. Please assist us with the question(s) below: Coding Question(s): Please clarify below, in your clinical opinion, regarding the pathologic fractures. ( X ) Pathologic fractures are due to neoplasm ( ) Pathologic fractures are due to other - Specify: ( ) Pathologic fracture are due to Trauma - Specify the trauma: Physician's Response(s): Thank you Jen Vance Principal Diagnosis: "_that condition established after study, to be chiefly responsible for occasioning the admission of the patient to the hospital for care." Co-Existing Principal Diagnosis: "_when two or more diagnoses equally meet the criteria for principal diagnosis as determined by the circumstances of admission, diagnostic work up, and/or therapy provided, and the Alphabetic Index, Tabular List, or another coding guideline does not provide sequencing direction, any one of the diagnoses may be sequenced first." "When the physician has documented what appears to be a current diagnosis in the body of the record, but has not included the diagnosis in the final diagnostic statement, the physician should be asked whether the diagnosis should be added." (Source Coding Clinic 2 QTR90. p3-4)
== END 2016-10-27 15:36 | disposition hospice, home (50) | DRG 542 ==
LOC: C.EDB 10:12 → C.4E 16:59 → ENRESERV 19:34
PROVIDERS: ADMIT Internal Medicine; ATTEND Hospitalist
DX: M84.58XA Pathological fracture in neoplastic disease, other specified site, initial encounter for fracture (principal); E43 Unspecified severe protein-calorie malnutrition; I82.221 Chronic embolism and thrombosis of inferior vena cava; C79.51 Secondary malignant neoplasm of bone; C79.89 Secondary malignant neoplasm of other specified sites; C78.00 Secondary malignant neoplasm of unspecified lung; M84.562A Pathological fracture in neoplastic disease, left tibia, initial encounter for fracture; C53.9 Malignant neoplasm of cervix uteri, unspecified; Z51.5 Encounter for palliative care; S81.802A Unspecified open wound, left lower leg, initial encounter; L65.9 Nonscarring hair loss, unspecified; E11.9 Type 2 diabetes mellitus without complications; E03.9 Hypothyroidism, unspecified; E83.42 Hypomagnesemia; F32.9 Major depressive disorder, single episode, unspecified; Z51.81 Encounter for therapeutic drug level monitoring; Z79.899 Other long term (current) drug therapy; Z79.01 Long term (current) use of anticoagulants; Z79.891 Long term (current) use of opiate analgesic; Z66 Do not resuscitate; Z86.718 Personal history of other venous thrombosis and embolism; Z83.3 Family history of diabetes mellitus; Z82.49 Family history of ischemic heart disease and other diseases of the circulatory system; X58.XXXA Exposure to other specified factors, initial encounter